=== PATIENT | female | born 1945 | race Caucasian/White ===

== ENCOUNTER 2020-07-23 15:02 | Outpatient (REF) | payer MEDICARE, SELFPAY ==
--- NOTE | 2020-07-23 15:06 | CT_ITS ---
EXAMINATION: CT CHEST SCREENING CLINICAL INFORMATION: Smoking history COMPARISON: Previous chest CT scans most recent July 2018 TECHNIQUE: Multidetector volumetric CT imaging of the chest is performed without contrast using low dose technique. Additional 2D coronal and sagittal reformatted images and axial 3D maximum intensity projection (MIP) images are generated on the CT workstation. This CT examination was performed using dose optimization techniques as appropriate, variously including the following: *Automated exposure control *Adjustment of mA and/or kV according to patient size (this includes techniques or standardized protocols for targeted exams where dose is matched to indication/reason for exam; i.e. extremities or head) *Use of iterative reconstruction technique DLP: 58 mGy-cm FINDINGS: LUNGS: There is mild emphysema. There are small bilateral pulmonary nodules that are stable. Largest pulmonary nodule measures 3 mm in the right upper lobe axial image 88 series 5 and left upper lobe axial image 39 series 5. No new pulmonary nodules are seen. There is no endobronchial or endotracheal lesion. MEDIASTINUM: The mediastinum is normal. PLEURA: There is no pleural effusion. No pleural mass or thickening. AXILLA: No lymphadenopathy. UPPER ABDOMEN: Unremarkable OSSEOUS STRUCTURES: There is increased thoracic kyphosis and degenerative changes of the lower thoracic and upper lumbar spine. CT/CT lung screening IMPRESSION: Mild emphysema. Stable small pulmonary nodules. ASSESSMENT: Lung-RADS category 2: Benign RECOMMENDATION: Annual low-dose chest CT follow-up recommended.
== END 2020-07-23 15:03 | disposition home or self-care (01) ==
LOC: HO.CT 15:02
PROVIDERS: Visit Provider Surgery
DX: Z12.2 Encounter for screening for malignant neoplasm of respiratory organs (principal); F17.210 Nicotine dependence, cigarettes, uncomplicated
CPT/HCPCS: 71250

== ENCOUNTER → 2020-07-24 14:37 | Outpatient (BNVA) | payer MEDICARE, SELFPAY | PROVIDERS: PCP Family Medicine; Referring Provider Family Medicine; Visit Provider Nurse Practitioner | DX: K21.9 Gastro-esophageal reflux disease without esophagitis (principal); K59.04 Chronic idiopathic constipation; R13.10 Dysphagia, unspecified; Z79.899 Other long term (current) drug therapy | CPT/HCPCS: Q3014 ==

== ENCOUNTER → 2020-08-12 14:08 | Outpatient (REF) | payer MEDICARE, SELFPAY ==
--- NOTE | 2020-08-12 14:00 | CA_ITS ---
Transthoracic Echocardiogram Patient (Last, First, Middle): Ariella Dorsey, Gender: Female Date of : 1945 Age: 74 Procedure Date: 08/12/2020 Procedure Type: Transthoracic Echocardiogram Location: OP Height: 137.16 cm Weight: 74.84 kg BSA: 1.59 m2 Heart Rate: bpm BP: 122 / 60 mmHg Radiocommunications Technician: Referring MD: Edilma Norwood DO Symptoms: R42 DIZZINESS AND GIDDINESS Study Quality: Fair ECG Rhythm: Sinus Conclusions: - The left ventricular systolic function is normal. The visually estimated ejection fraction is between 60-65%. - No obvious valvular pathology seen on this study. Findings Left Ventricle Normal left ventricular cavity size. There is normal left ventricular wall thickness. The left ventricular systolic function is normal. The visually estimated ejection fraction is between 60-65%. There is no evidence of regional wall motion abnormalities. E/E prime ratio is between 8 and 15 consistent with indeterminate filling pressures. Evidence suggests grade I (mild) diastolic dysfunction. Right Ventricle Normal right ventricular cavity size and systolic function. Atria The left atrium is normal in size. The right atrium is normal in size. Aortic Valve There is a normal trileaflet aortic valve. There is no aortic valve stenosis. There is no aortic valve regurgitation. Mitral Valve The mitral valve appears normal. There is trace mitral valve regurgitation. There is no mitral valve stenosis. Pulmonic Valve The pulmonic valve was not well visualized. Tricuspid Valve Normal tricuspid valve structure. There is trace tricuspid valve regurgitation. The pulmonary artery systolic pressure is normal. Great Vessels The aortic annulus, sinuses of valsalva, and asc aorta are normal in size. Venous The inferior vena cava is normal in size and collapses greater than 50% with inspiration. Pericardium/Pleural Prominent epicardial adipose tissue noted. There is no evidence of pericardial effusion. Prior Study Comparison No significant change compared to prior study dated: 10/18/2017. Recommendations, Care & Conclusions No obvious valvular pathology seen on this study. Measurements 2D Linear Measurements IVSd: 0.94 0.6-0.9/0.6-1.0 cm LVIDd: 3.74 3.9-5.3/4.2-5.9 cm LVIDd Index: 2.35 2.4-3.2/2.2-3.1 cm/m2 LVIDs: 2.45 2.0-3.6 cm LVPWd: 0.92 0.7-1.1 cm Ao Root: 2.90 2.1-3.5 cm LA Diam: 3.10 2.7-3.8/3.0-4.0 cm LAIDs Index: 1.95 1.5-2.3 cm/m2 LV Mass: 127.26 67-162/88-224 g LV Mass Index: 80.04 43-95/49-115 g/m2 LVOT Diam: 2.00 3.0+(-)1.3 cm 2D Systolic Function EF 4C: 55.90 >55% EF 2C: 59.70 >55% EF BiP: 60.20 >55% Mitral Valve MV Pk E: 0.69 MV PK A: 0.96 MV Decel Time: 130.00 E/A: 0.70 E'Lateral: 7.25 E'Medial: 6.19 E/E' Med: 11.10 E/E' Lat: 9.50 PHT: 38.00 MVA PHT: 5.79 Decel [place]: 5.29 Aortic Valve AoV Pk Zachary: 1.20 AoV Mn Zachary: 0.74 AoV VTI: 0.22 AoV Pk Grad: 6.00 Aov Mn Grad: 3.00 MARISABEL Cont.VTI: 2.11 LVOT LVOT Pk Zachary: 0.83 LVOT Mn Zachary: 0.54 LVOT VTI: 0.15 LVOT Pk Grad: 3.00 LVOT Mn Grad: 1.00 LVOT Diam: 2.00 LVOT Area: 3.14 Diastolic Function MV Pk E: 0.69 MV Pk A: 0.96 E/A: 0.70 E'Medial: 6.19 E/E' Med: 11.10 E' Laterial: 7.25 E/E' Lat: 9.50 Tricuspid Valve TR Pk Zachary: 1.35 TR Pk Grad: 7.00 RA Press: 3.00 RVSP: 10.00 Great Vessels Aorta Ao Root-2D: 2.90 2.0-3.7 cm Ao Asc: 3.60 2.1-3.4 cm Pulmonary Valve PV Pk Zachary: 0.96 Peak PV Grad: 4.00 Updated in Other Vendor System with Status of Final Alen Ospina MD electronically signed on 08/13/2020 10:54:16 AM with status of Final
== END ==
LOC: HO.CARD 14:08
PROVIDERS: Visit Provider Family Medicine
DX: R42 Dizziness and giddiness (principal)
CPT/HCPCS: 93306

== ENCOUNTER → 2020-10-24 13:39 | Outpatient (BNVA) | payer MEDICARE, SELFPAY | PROVIDERS: PCP Family Medicine; Visit Provider Nurse Practitioner | DX: Z76.89 Persons encountering health services in other specified circumstances (principal) | CPT/HCPCS: Q3014 ==

== ENCOUNTER 2021-01-02 12:31 | Outpatient (REF) | payer MEDICARE, SELFPAY ==
--- NOTE | ~2021-01-02 | MR_ITS ---
MR LUMBAR SPINE WITHOUT CONTRAST CLINICAL INFORMATION: Worsening low back pain radiating to the legs. COMPARISON: Lumbar spine MRI 11/07/2015 TECHNIQUE: MRI of the lumbar spine was obtained using routine sequences without contrast. FINDINGS: There are 5 nonrib-bearing lumbar-type vertebral bodies. There is grade 1 retrolisthesis of L1 on L2 and L2 on L3 that is unchanged. Similar severe disc volume loss at these 2 levels and mild disc volume loss at L5-S1. There is marrow edema within the left L5 and S1 facets that is most likely degenerative or inflammatory. There is no additional bone marrow edema. There are no acute fractures. Modic type II endplate signal changes at L1-L2 and L2-L3. Multilevel endplate osteophytes. Bilateral perinephric stranding. Conus terminates at the L1 level. T12-L1: Small superiorly migrating left paracentral disc extrusion and prominent dorsal epidural fat result in similar mild to moderate central canal stenosis. Mild bilateral foraminal encroachment. L1-L2: Grade 1 retrolisthesis. Diffuse disc osteophyte with a superimposed shallow right paracentral disc protrusion resulting in similar mass effect on the traversing right L2 nerve root within the right subarticular zone and mild narrowing of the central canal. Stable mild to moderate bilateral foraminal stenosis. L2-L3: Stable grade 1 retrolisthesis. Diffuse disc osteophyte and bilateral facet arthropathy. No central canal stenosis. Moderate bilateral foraminal stenosis with mild mass effect on the exiting L2 nerve roots bilaterally unchanged. L3-L4: Diffuse annular disc bulge with a new superimposed left lateral disc protrusion resulting in worsening now severe left foraminal stenosis with compression of the exiting left L3 nerve root. No central canal stenosis. Mild right foraminal encroachment. L4-L5: Diffuse annular disc bulge and severe bilateral facet arthropathy and ligamentum flavum thickening. Bilateral facet joint effusions. Mild narrowing of the central canal. Mild bilateral foraminal encroachment. Findings are unchanged. L5-S1: Diffuse annular disc bulge and severe bilateral facet arthropathy and ligamentum flavum thickening. Epidural lipomatosis continues to significantly narrow the thecal sac. Increase in size of a right lateral disc protrusion that along with progressive facet arthropathy results in worsening severe right foraminal stenosis compression of the exiting right L5 nerve root. MR/MR lumbar spine wo con IMPRESSION: - At L5-S1, there is been an increase in size of a right lateral disc protrusion that along with progressive advanced facet arthropathy results in worsening severe right foraminal stenosis with compression of the exiting right L5 nerve root. There is bone marrow edema within the left L5-S1 facet joint that is most likely degenerative or inflammatory - At L3-L4, there is a new left lateral disc protrusion that results in severe left foraminal stenosis with compression of the exiting left L3 nerve root. - At T12-L1, the previously seen disc herniation is decreased in size resulting in persistent mild to moderate central canal stenosis. Additional stable spondylitic changes throughout the lumbar spine as described. Stable grade 1 retrolisthesis and severe disc volume loss at L1-L2 and L2-L3.
== END 2021-01-02 12:32 | disposition home or self-care (01) ==
LOC: HO.MRI 12:31
PROVIDERS: Visit Provider Family Medicine
DX: M54.5 Low back pain (principal)
CPT/HCPCS: 72148

== ENCOUNTER 2021-04-30 12:55 | Outpatient (REF) | payer MEDICARE, SELFPAY ==
--- NOTE | ~2021-04-30 | MM_ITS ---
EXAMINATION: MM DIAGNOSTIC DIGITAL BREAST TOMOSYNTHESIS, BILATERAL CLINICAL INFORMATION: Due for yearly. Also, follow-up probable benign nodular asymmetric density upper outer left breast. The lifetime risk of breast cancer based on the Tyrer-Cuzick Model is 4%. COMPARISON: Mammography: 04/30/2020, 07/26/2019, 12/26/2018, 12/13/2018 (BI-RADS 0), 11/29/2017 TECHNIQUE: Digital breast tomosynthesis is performed in both the craniocaudal and mediolateral oblique views along with computer-aided detection (CAD). Synthesized 2D images are generated from the tomosynthesis. FINDINGS: There are scattered areas of fibroglandular density (ACR BI-RADS breast composition Category b). Parenchymal pattern is similar to prior studies. There is no developing density. There is no interval mass or architectural abnormality. The small nodule upper outer quadrant left breast is stable from prior studies, and in retrospect, also similar to 2018. This concludes surveillance and finding is considered to be benign. Chronic bilateral nipple retraction is again noted. There are scattered bilateral vascular and some ductal secretory calcifications. The axilla are unremarkable. Results are provided to the patient at time of visit by the technologist. MM/MM tomosynthesis diagnostic BI IMPRESSION: No significant changes from prior studies. Nodule under surveillance upper outer left breast is now considered to be benign. ASSESSMENT: BI-RADS 2: Benign RECOMMENDATION: Routine annual mammography screening. This patient's information was entered into a reminder system with a target due date for their next mammogram.
== END 2021-04-30 12:56 | disposition home or self-care (01) ==
LOC: HO.MAMMO 12:55
PROVIDERS: PCP Family Medicine; Visit Provider Family Medicine
DX: N63.21 Unspecified lump in the left breast, upper outer quadrant (principal)
CPT/HCPCS: 77062; 77066

== ENCOUNTER 2022-05-15 09:51 | Outpatient (REF) | payer MEDICARE, SELFPAY ==
--- NOTE | ~2022-05-15 | MM_ITS ---
EXAMINATION: MM SCREENING DIGITAL BREAST TOMOSYNTHESIS, BILATERAL CLINICAL INFORMATION: Screening. Asymptomatic. The lifetime risk of breast cancer based on the Tyrer-Cuzick Model is 3%. COMPARISON: Mammography: 04/30/2021, 04/30/2020, 07/26/2019, 11/29/2017 TECHNIQUE: Digital breast tomosynthesis is performed in both the craniocaudal and mediolateral oblique views along with computer-aided detection (CAD). Synthesized 2D images are generated from the tomosynthesis. Additional left MLO view is provided. FINDINGS: There are scattered areas of fibroglandular density (ACR BI-RADS breast composition Category b). There are no significant masses, abnormal calcifications, or other abnormalities. Parenchymal pattern is similar to prior studies. There is no developing density or architectural abnormality. The axilla are unremarkable. There is chronic mild bilateral nipple retraction similar to prior studies. MM/MM tomosynthesis screening BI IMPRESSION: No significant changes from prior exams. ASSESSMENT: BI-RADS 2: Benign RECOMMENDATION: Routine annual mammography screening. This patient's information was entered into a reminder system with a target due date for their next mammogram.
== END 2022-05-15 09:52 | disposition home or self-care (01) ==
LOC: HO.MAMMO 09:51
PROVIDERS: PCP Family Medicine; Visit Provider Family Medicine
DX: Z12.31 Encounter for screening mammogram for malignant neoplasm of breast (principal)
CPT/HCPCS: 77063; 77067

== ENCOUNTER 2022-12-22 09:52 | Outpatient (REF) | payer MEDICARE, SELFPAY ==
--- NOTE | ~2022-12-22 | MR_ITS ---
EXAMINATION: MR BRAIN WITHOUT CONTRAST CLINICAL INFORMATION: 77-year-old with worsening memory loss. COMPARISON: None available. TECHNIQUE: Multiplanar multisequence MR imaging of the brain was done without IV contrast. FINDINGS: BRAIN VOLUME: Within normal limits within the limitations of qualitative assessment. STRUCTURAL: Partially empty sella, normal variant. BRAIN AND MENINGES: There is faint, confluent FLAIR signal hyperintensity in the peritrigonal and deep parietal white matter bilaterally and a tiny focus of white matter T2 hyperintensity in the left centrum semiovale which are nonspecific findings but could reflect minimal chronic ischemic microangiopathy in a patient of this age. DWI sequence demonstrates no restricted diffusion to suggest acute or subacute cerebral ischemia. Gradient refocused imaging demonstrates no abnormal susceptibility-weighted signal loss to suggest hemorrhage, hemosiderin staining or abnormal mineralization. No extra-axial fluid collections, space-occupying process or mass effect are identified. Tucker-white matter interface is preserved. VENTRICLES AND SUBARACHNOID SPACES: The ventricular system and subarachnoid spaces are within normal range; there is no hydrocephalus. ORBITAL STRUCTURES: Bilateral lens extractions are noted. Otherwise, the visualized orbital structures are grossly unremarkable within the limitations of the study. VASCULAR: Signal voids are noted in the visualized major intracranial vessels. OSSEOUS STRUCTURES, SINUSES/MASTOIDS, EXTRACRANIAL SOFT TISSUES: Osseous marrow signal intensity appears within normal limits throughout the calvarium and skull base. There is nasal septal deviation to the left and minor mucosal thickening in the ethmoid complex. The visualized extracranial soft tissue structures appear grossly unremarkable. There are some retained secretions in the mastoids bilaterally and in the left petrous apex with the latter likely reflecting proteinaceous secretions, being T1 hyperintense. MR/MR head/brain wo con IMPRESSION: 1. No acute intracranial process. No evidence for infarction, hemorrhage, extra-axial fluid collection, space-occupying process, mass effect or hydrocephalus. 2. 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 3. No definite disproportionate global or regional brain parenchymal volume loss within the limitations of a qualitative assessment. 4. Some retained secretions are suspected in the mastoids bilaterally and probable minimal proteinaceous secretions in the left petrous apex.
--- NOTE | ~2022-12-22 | MR_ITS ---
MR CERVICAL SPINE WITHOUT CONTRAST CLINICAL INFORMATION: Worsening chronic neck pain. COMPARISON: Cervical spine MRI 06/15/2013. TECHNIQUE: MRI of the cervical spine was obtained using routine sequences without contrast. FINDINGS: Slight anterior subluxation of C4 on C5 and C5 on C6. Vertebral body heights are maintained. Mild disc volume loss at C3-C4 and C4-C5. Craniocervical junction is unremarkable. Bone marrow edema within the left C3 and C4 facets that is most likely degenerative/inflammatory. Modic type I endplate signal changes at C3-C4. Cervical arterial flow voids are maintained. 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 C2-C3: Uncovertebral joint spurring and facet arthropathy result in mild bilateral foraminal encroachment. No central canal stenosis. Findings unchanged. C3-C4: Disc osteophyte and ligamentum flavum thickening result in worsening moderate to severe central canal stenosis and flattening of the cord. Advanced uncovertebral joint hypertrophy and hypertrophic facet arthropathy result in worsening severe bilateral foraminal stenosis. C4-C5: Disc osteophyte and ligamentum flavum thickening result in slightly improved now moderate central canal stenosis. Advanced uncovertebral joint hypertrophy and hypertrophic facet arthropathy result in severe bilateral foraminal stenosis. C5-C6: Mild anterior subluxation. Disc osteophyte and ligamentum flavum thickening mildly narrow the central canal. Uncovertebral joint spurring and facet arthropathy result in moderate bilateral foraminal stenosis which is progressed. C6-C7: Mild anterior subluxation. Uncovertebral joint spurring and advanced facet arthropathy result in similar mild left-sided foraminal encroachment. C7-T1: Disc contour is normal. No central canal stenosis and no foraminal stenosis. MR/MR cervical spine wo con IMPRESSION: - At C3-C4, progressive advanced multifactorial degenerative changes result in worsening moderate to severe central canal stenosis, flattening of the cervical cord, and severe bilateral foraminal stenosis. Modic type I endplate signal changes at this level. Bone marrow edema within the left C3-C4 facets is most likely degenerative/inflammatory. - At C4-C5, spondylitic changes result in slightly improved moderate central canal stenosis. Similar severe bilateral foraminal stenosis at this level. - At C5-C6, progressive spondylitic changes result in worsening moderate bilateral foraminal stenosis. 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
== END 2022-12-22 09:53 | disposition home or self-care (01) ==
LOC: HO.MRI 09:52
PROVIDERS: PCP Family Medicine; Visit Provider Family Medicine
DX: R68.89 Other general symptoms and signs (principal); M54.2 Cervicalgia; G89.29 Other chronic pain
CPT/HCPCS: 70551; 72141

== ENCOUNTER 2023-03-11 09:45 | Outpatient (REF) | payer MEDICARE, SELFPAY | END 2023-03-11 09:46 | disposition home or self-care (01) | LOC: HO.NEURO 09:45 | PROVIDERS: PCP Family Medicine; Visit Provider Family Medicine | DX: M79.604 Pain in right leg (principal); M79.605 Pain in left leg | CPT/HCPCS: 95886; 95909 ==

== ENCOUNTER 2023-11-30 09:51 | Outpatient (REF) | payer MEDICARE, SELFPAY ==
[2023-11-30 12:07] LABS: MANUAL DIFF FLAG NO
[2023-11-30 12:13] LABS: Basophils Absolute Auto 0.1 X10*3/uL (0.0-0.2); Basophils Percent Auto 0.6 % (0-2); Eosinophils Absolute Auto 0.1 X10*3/uL (0.0-0.4); Eosinophils Percent Auto 1.3 % (0-4); Hematocrit 34.6 % (37.0-47.0); Hemoglobin 10.6 g/dl (12.0-16.0); Imm Gran Abs Auto 0.03 X10*3/uL (0.00-0.03); Imm Gran Pct Auto 0.3 % (0.0-0.4); Lymphocytes Percent Auto 31.7 % (20-40); Mean Corpuscular HGB Conc 30.6 g/dl (31.0-35.0); Mean Corpuscular Hemoglobin 25.4 pg (27.0-33.0); Monocytes Absolute Auto 0.6 X10*3/uL (0.1-1.2); Monocytes Percent Auto 5.8 % (2-11); Neutrophils Absolute Auto 5.7 x10*3/uL (2.0-8.3); Neutrophils Percent Auto 60.3 % (45-73); Platelet Count 365 X10*3/uL (160-400); Red Blood Count 4.17 X10*6/uL (4.20-5.50); Red Cell Distribution Width 16.1 % (11.0-16.0); White Blood Count 9.5 X10*3/uL (4.8-10.8)
[2023-11-30 13:05] LABS: Alanine Aminotransferase 18 U/L (0-31); Albumin Level 4.2 g/dL (3.5-5.0); Alkaline Phosphatase 126 U/L (39-117); Anion Gap 14 (12-20); Aspartate Amino Transferase 23 U/L (5-31); Bilirubin Total 0.2 mg/dL (0.0-1.0); Blood Urea Nitrogen 13 mg/dL (9-16); Calcium 9.8 mg/dL (8.4-10.2); Carbon Dioxide 27 mmol/L (22-29); Chloride 107 mmol/L (96-108); Estimated Glomerular Filt Rate > 60; Glucose Random 166 mg/dL (60-115); Potassium 4.6 mmol/L (3.3-5.1); Sodium 143 mmol/L (135-145); Total Protein 7.4 g/dL (6.5-8.0)
== END 2023-11-30 09:52 | disposition home or self-care (01) ==
LOC: HO.HHCL 09:51
PROVIDERS: Visit Provider Nurse Practitioner Family
DX: Z00.00 Encounter for general adult medical examination without abnormal findings (principal)
CPT/HCPCS: 36415; 80053; 85025

== ENCOUNTER 2023-12-08 10:17 | Outpatient (REF) | payer OTHER, SELFPAY | END 2023-12-08 10:18 | disposition home or self-care (01) | LOC: HO.MAMMO 10:17 | PROVIDERS: PCP Family Medicine; Visit Provider Family Medicine | DX: Z12.31 Encounter for screening mammogram for malignant neoplasm of breast (principal) | CPT/HCPCS: 77063; 77067 ==

== ENCOUNTER → 2023-12-08 11:00 | Outpatient (BNV) | payer OTHER, SELFPAY | PROVIDERS: PCP Family Medicine; Visit Provider Radiology Diagnostic Radiology | DX: Z12.31 Encounter for screening mammogram for malignant neoplasm of breast (principal) | CPT/HCPCS: 77063; 77067 ==

== ENCOUNTER 2024-04-11 10:51 | Outpatient (REF) | payer OTHER, SELFPAY ==
--- NOTE | ~2024-04-11 | XR_ITS ---
EXAMINATION: XR RIBS, BILATERAL CLINICAL INFORMATION: Left-sided left pain COMPARISON: CT chest July 2020 TECHNIQUE: 3 views of left and right ribs and frontal view of the chest FINDINGS: Lungs are clear. No consolidation, pneumothorax, or pleural effusion. The cardiomediastinal silhouette and pulmonary vasculature are normal. Osseous structures are unremarkable. Ribs are intact. No fractures are identified. XR/XR ribs BI min 4V w CXR1V IMPRESSION: Unremarkable examination. No fracture Electronically signed by: Abdoul Rivera MD 05/05/2024 06:48 AM EDT
== END 2024-04-11 10:52 | disposition home or self-care (01) ==
LOC: HO.HHCX 10:51
PROVIDERS: Visit Provider Family Medicine
DX: R07.81 Pleurodynia (principal)
CPT/HCPCS: 71111

== ENCOUNTER 2024-04-27 09:30 | Outpatient (REF) | payer OTHER, SELFPAY ==
[2024-04-27 12:18] LABS: Estimated Average Glucose 189 mg/dL; Hemoglobin A1c % 8.2 % (<6.0)
[2024-04-27 12:19] LABS: Hematocrit 34.3 % (37.0-47.0); Hemoglobin 10.3 g/dl (12.0-16.0); Mean Corpuscular Hemoglobin 24.1 pg (27.0-33.0); Mean Corpuscular Volume 80.3 fL (80.0-98.0); Mean Platelet Volume 9.4 fL (9.4-12.3); Platelet Count 413 X10*3/uL (160-400); Red Blood Count 4.27 X10*6/uL (4.20-5.50); Red Cell Distribution Width 17.4 % (11.0-16.0)
[2024-04-27 12:33] LABS: Alanine Aminotransferase 12 U/L (0-31); Albumin Level 3.9 g/dL (3.5-5.0); Alkaline Phosphatase 119 U/L (39-117); Anion Gap 15 (12-20); Aspartate Amino Transferase 13 U/L (5-31); Bilirubin Direct < 0.2 mg/dL (0.0-0.5); Bilirubin Total 0.2 mg/dL (0.0-1.0); Blood Urea Nitrogen 10 mg/dL (9-16); Calcium 9.7 mg/dL (8.4-10.2); Carbon Dioxide 24 mmol/L (22-29); Chloride 108 mmol/L (96-108); Cholesterol 159 mg/dL (<200); Estimated Glomerular Filt Rate > 60; Glucose Random 150 mg/dL (60-115); HDL Cholesterol 49 mg/dL (>40); LDL Cholesterol Calculated 72 mg/dL (<100); Potassium 4.8 mmol/L (3.3-5.1); Sodium 142 mmol/L (135-145); Total Protein 6.8 g/dL (6.5-8.0); Triglycerides 190 mg/dL (<150)
[2024-04-27 12:49] LABS: HBsAGNum1 0.22 S/CO (0.00-0.99); HIV AB/AG Nonreactive (Nonreactive); HIV Num 1 0.06 S/CO (0.00-0.99); Hepatitis B Surface Antigen Negative (Negative); ~HepC Num1 7.76 S/CO (0.00-0.79); ~Hepatitis C Antibody Reactive (Nonreactive)
[2024-04-27 12:50] LABS: Free T4 (Free Thyroxine) 0.81 ng/dL (0.71-1.85); Thyroid Stimulating Hormone 1.05 uIU/mL (0.32-4.0); Vitamin D 25-OH Total 50.1 ng/mL (>30)
[2024-04-27 14:20] LABS: Creatinine Urine 28.57 mg/dL; Microalbum/Creatinine Ratio Ur 24.5 ug/mg cr (<30)
[2024-04-27 14:39] LABS: HBS Num2 9.08 mIU/mL (0-7.99); HBS Num3 9.53 mIU/mL (0-7.99); ~Hepatitis B Surface Antibody GRAYZONE (Nonreactive)
[2024-04-27 16:29] LABS: CT PCR NOT DETECTED (Not Detect.); NG PCR NOT DETECTED (Not Detect.)
[2024-05-01 13:18] LABS: HCV Log PCR <1.18 NOT DETECTED Log IU/mL (NOT DETECTED); HepC Viral Load <15 NOT DETECTED IU/mL (NOT DETECTED)
== END 2024-04-27 09:31 | disposition home or self-care (01) ==
LOC: HO.HHCL 09:30
PROVIDERS: Visit Provider Family Medicine
DX: Z00.00 Encounter for general adult medical examination without abnormal findings (principal); R07.81 Pleurodynia; R32 Unspecified urinary incontinence; R14.0 Abdominal distension (gaseous); M54.2 Cervicalgia; G89.29 Other chronic pain; M54.50 Low back pain, unspecified; R13.10 Dysphagia, unspecified; K59.09 Other constipation; F17.200 Nicotine dependence, unspecified, uncomplicated; J45.30 Mild persistent asthma, uncomplicated; F33.9 Major depressive disorder, recurrent, unspecified; E78.49 Other hyperlipidemia; I10 Essential (primary) hypertension; Z79.4 Long term (current) use of insulin; E11.42 Type 2 diabetes mellitus with diabetic polyneuropathy
CPT/HCPCS: 36415; 80048; 80061; 80076; 82043; 82306; 82570; 83036; 84439; 84443; 85027; 86706; 86803; 87340; 87389; 87491; 87522; 87591

== ENCOUNTER 2024-08-23 17:23 | Emergency (ER) | payer OTHER, SELFPAY ==
[2024-08-23] VITALS (9 sets, daily range): BP systolic 91–156; BP diastolic 40–67; PULSE 67–82; RESP 16–18; TEMP 36.3–36.6; O2SAT 92–100; BMI 35.5
--- NOTE | ~2024-08-23 | XR_ITS ---
EXAMINATION: XR CHEST CLINICAL INFORMATION: sob COMPARISON: None available. TECHNIQUE: Frontal view of the chest was obtained. Study limited by lordotic positioning. FINDINGS: No significant abnormality is noted involving the heart, lungs, mediastinum, bony thorax or soft tissues. XR/XR chest 1V IMPRESSION: Unremarkable examination. Electronically signed by: Sid Gan MD 08/23/2024 06:01 PM [facility] [place]
--- NOTE | ~2024-08-23 | CT_ITS ---
EXAMINATION: CT ABDOMEN AND PELVIS WITH CONTRAST CLINICAL INFORMATION: Nausea/vomiting COMPARISON: None TECHNIQUE: Multiple axial images were obtained from the superior aspect of the liver through the pubic symphysis after the administration of 85 mL of intravenous Omnipaque. Images were evaluated on independent dedicated 3-D workstation and 3-D images were reconstructed with concurrent radiologist supervision and subsequently interpreted. Oral contrast was not administered. This CT examination was performed using dose optimization techniques as appropriate, variously including the following: *Automated exposure control *Adjustment of mA and/or kV according to patient size (this includes techniques or standardized protocols for targeted exams where dose is matched to indication/reason for exam; i.e. extremities or head) *Use of iterative reconstruction technique DLP: 490 mGy-cm FINDINGS: LUNG BASES: The visualized lung bases are clear. CARDIOMEDIASTINUM: The visualized heart is normal in size without pericardial effusion. No coronary artery calcification. LIVER: Homogeneous in attenuation. Normal in size. GALLBLADDER: Noninflamed. BILIARY SYSTEM: No intrahepatic or extrahepatic biliary dilation. PANCREAS: Homogeneous in attenuation. SPLEEN: Normal in size. GENITOURINARY: Bilateral kidneys demonstrate symmetric enhancement. No perinephric fluid collection. No renal calculi. Urinary bladder is severely distended with bilateral mild hydronephrosis. ADRENAL GLANDS: Unremarkable. REPRODUCTIVE: Uterus and and bilateral adnexa are unremarkable. GASTROINTESTINAL: The visualized alimentary tract is normal in course. No evidence of obstruction. APPENDIX: The appendix is seen in its entirety and is unremarkable. PERITONEUM: No pneumoperitoneum. No intra-abdominal fluid collection. VASCULATURE: The abdominal aorta is normal in course and caliber. LYMPH NODES: No pathologically enlarged abdominal or pelvic lymph nodes. SOFT TISSUES/MUSCULOSKELETAL: Subacute left seventh and eighth rib fractures. Multilevel degenerative changes, worst at L2-3. CT/CT abdomen pelvis w IV con IMPRESSION: 1. Severely distended urinary bladder with mild bilateral hydronephrosis. No urolithiasis 2. Subacute left seventh and eighth rib fractures. Fleischner guidelines were followed. Electronically signed by: Kevin Winters DO 08/23/2024 09:31 PM EST
--- NOTE | 2024-08-23 17:41 | ECG_ITS ---
Test Reason : SOB Blood Pressure : / mmHG Vent. Rate : 078 BPM Atrial Rate : 000 BPM P-R Int : 000 ms QRS Dur : 082 ms QT Int : 396 ms P-R-T Axes : 000 003 036 degrees QTc Int : 451 ms Artifact in tracing Normal sinus rhythm Premature atrial complexes Abnormal ECG When compared with ECG of 11-JAN-2012 10:24, No significant changes seen Referred By: Olivia Golden Electronically Signed By:DAVIDSON IRVING
--- NOTE | 2024-08-23 17:44 | ED_ITS ---
HPI - Nausea/Vomiting/Diarrhea General Chief complaint: General Medical Stated complaint: HIGH BLOOD SUGAR History of Present Illness HPI Narrative: patient is a 78-year-old female with a history of reflux history of smoking for over 50 years. History of diabetes. Noncompliant with her diet. Patient has been eating ice cream, drinking coffee with real sugar. Noted to have an elevated sugar of greater than 400 today. Also having nausea vomiting. Patient always has a cough. Feels it is about the same as prior. Is vaccinated for COVID. Has no abdominal pain. No fever no chills. No pain on urination. Been compliant in taking her insulin. She is from home. No chest pain. Related Data Home Medications ?Medication ?Instructions ?Recorded ?Confirmed acetaminophen 650 mg 0 mg PO 10/24/20 tablet,extended release aspirin 81 mg tablet,delayed 81 mg PO DAILY 10/24/20 release atorvastatin 40 mg tablet 40 mg PO BEDTIME 10/24/20 baclofen 10 mg tablet 10 mg PO BID 10/24/20 calcium 600 mg (as 1 tab PO BID 10/24/20 carbonate)-vitamin D3 10 mcg (400 unit) tablet cyanocobalamin (vitamin B-12) 1,000 mcg PO QAM 10/24/20 1,000 mcg tablet fluticasone propionate 220 1 puff inhalation BID 10/24/20 mcg/actuation HFA aerosol inhaler gabapentin 300 mg capsule 600 mg PO 10/24/20 glipizide 10 mg tablet 0 mg PO 10/24/20 glucose 4 gram chewable tablet 800f16 g PO hypoglycemia 10/24/20 insulin glargine 100 unit/mL (3 34 unit subcut DAILY 10/24/20 mL) subcutaneous pen lisinopril 10 mg tablet 10 mg PO QAM 10/24/20 metformin 500 mg tablet 0 mg PO 10/24/20 omega-3 fatty acids-fish oil 340 1 cap PO BID 10/24/20 mg-1,000 mg capsule sertraline 25 mg tablet 25 mg PO QAM 10/24/20 simethicone 125 mg chewable tablet 125 mg PO QID PRN gas 10/24/20 simvastatin 40 mg tablet 40 mg PO BEDTIME 10/24/20 tramadol 50 mg tablet 50 mg PO Q6H PRN 10/24/20 trazodone 50 mg tablet 50 mg PO BEDTIME 10/24/20 Previous Rx's ?Medication ?Instructions ?Recorded docusate sodium 100 mg capsule 100 mg PO DAILY #30 caps 07/24/20 (Colace) linaclotide 290 mcg capsule 290 mcg PO QAM #30 caps 10/24/20 (Linzess) omeprazole 40 mg capsule,delayed 40 mg PO BID 30 days #60 caps 10/24/20 release sennosides 8.6 mg capsule (senna) 17.2 mg (2 x 8.6 mg) PO BEDTIME 10/24/20 constipation 30 days #60 caps Allergies Allergy/AdvReac Type Severity Reaction Status Date / Time No Known Allergies Allergy Verified 08/23/24 18:02 Review of Systems 2 Review of Systems: Positive nausea vomiting positive elevated sugar at home [facility] Past Medical History Attestation statement: The following information was validated with the patient. Surgical History Hx of colonoscopy Family History Family History Father Diabetes Myocardial infarction Mother Diabetes Brother Diabetes Sister Diabetes Heart problem Daughter Breast cancer Heart problem Paternal Uncle Colon cancer Son Liver cancer Social History Social History (Updated 10/24/20 @ 13:45 by PIPE Rao) Unable to assess alcohol history related to: Unknown Alcohol intake: current Alcohol intake frequency: does not drink Cigarettes Per Day: 20 Smoked in Last 30 Days: No Use of substances other than those prescribed or required for medical reasons: Unknown Advance Directives: No Advance Directives Information Provided: No Physical Exam 2 Vital Signs: Vital Signs: Last Vital Signs Temp 97.6 F 08/23/24 20:00 Pulse 72 08/23/24 20:15 Resp 17 08/23/24 20:00 BP 120/47 L 08/23/24 20:15 Pulse Ox 92 08/23/24 20:00 O2 Del Method Room Air 08/23/24 20:00 BMI result Body Mass Index 35.5 Appearance: Alert. Oriented X3. No acute distress. Eyes: Pupils equal, round and reactive to light. ENT: Pharynx normal. Neck: Normal inspection. Neck supple. No lymph nodes noted. No crepitus CVS: Normal heart rate and rhythm. Pulses normal. Normal S1 and S2 Respiratory: No respiratory distress. Breath sounds normal. positive Wheezing. No rales Abdomen: Soft and nontender. No rigidity. No distention. good BS x4 Skin: Skin warm and dry. Normal skin color. Normal skin turgor. Extremities: No lower extremity edema. Neurovascular intact to all extremities. No Lacerations. No Rash Neuro: Oriented X 3. No motor deficit. No sensory deficit. Moving all extermities. No slurred speech Medications Administered Discontinued Medications Generic Name Dose Route Start Last Admin Trade Name Mohini PRN Reason Stop Dose Admin Albuterol Sulfate 2.5 mg/ 0 mg 08/23/24 17:40 08/23/24 17:55 Albuterol/Ipratropium 3 ml INHALE 08/23/24 17:41 5 dose ONCE ONE Administration Sodium Chloride 1,000 mls @ 999 mls/hr 08/23/24 17:45 08/23/24 20:15 Ns IV 08/23/24 18:45 Infused .Q1H1M CHAD Infusion Magnesium Sulfate 2 gm in 50 mls @ 50 mls/hr 08/23/24 18:49 08/23/24 20:05 Magnesium Sulfate/H2o IV 08/23/24 19:48 50 mls/hr ONCE ONE Administration Iohexol 100 ml 08/23/24 19:02 08/23/24 19:03 Iohexol 350 Mg/Ml 100 Ml Infus..Btl IV 08/23/24 19:03 85 ml ONCE ONE Administration Ondansetron HCl 4 mg 08/23/24 17:39 08/23/24 18:13 Ondansetron Hcl 4 Mg/2 Ml Vial IVPUSH 08/23/24 17:40 4 mg ONCE ONE Administration Medical Decision Making Medical Decision Making MDM Narrative: Patient's COVID test came back positive. likely contributed to patient's elevated sugar. Her O2 sat is 92% on room air she has a long history of COPD smoking over 50 years. My interpretation of patient's chest x-ray was grossly negative there is no pneumonia no pneumothorax. Patient's electrolytes came back normal bicarb. Glucose approximately 300. Beta hydroxybutyrate is normal. There is no evidence for diabetic ketoacidosis. Patient's magnesium however came back at 1.3. Repleted with 2 g of magnesium. Will recheck patient's electrolytes. She had nausea vomiting. CT scan of the abdomen pelvis was done to rule out obstruction abscess perforation. ambulated patient in the ED. O2 sat maintained at 93-94% on room air. No hypoxia detected. 20:55. Patient is still pending CT scan of the abdomen repeat electrolytes to check magnesium repletion. Currently in stable condition. Differential Diagnosis Differential Diagnoses: The differential diagnosis associated with the presentation includes Currently in stable condition. COPD, obstruction, hypomagnesemia, electrolyte disturbance, DKA Admission/Observation Consideration of admission/observation: Escalation of care including admission/observation considered Lab Data MDM Lab Attestation statement: I reviewed the patient's lab results. 08/23/24 18:11 08/23/24 18:11 Labs: Lab Results 08/23/24 08/23/24 08/23/24 Range/Units 18:11 18:19 18:33 WBC 8.1 (4.8-10.8) X10*3/uL RBC 4.05 L (4.20-5.50) X10*6/uL Hgb 9.6 L (12.0-16.0) g/dl Hct 31.2 L (37.0-47.0) % MCV 77.0 L (80.0-98.0) fL MCH 23.7 L (27.0-33.0) pg MCHC 30.8 L (31.0-35.0) g/dl RDW 16.9 H (11.0-16.0) % Plt Count 317 (160-400) X10*3/uL MPV 9.0 L (9.4-12.3) fL Immature Gran % (Auto) 0.5 H (0.0-0.4) % Neut % (Auto) 57.0 (45-73) % Lymph % (Auto) 32.9 (20-40) % [place] % (Auto) 8.6 (2-11) % Eos % (Auto) 0.5 (0-4) % Baso % (Auto) 0.5 (0-2) % Lymph # (Auto) 2.7 (1.2-4.9) X10*3/uL [place] # (Auto) 0.7 (0.1-1.2) X10*3/uL Eos # (Auto) 0.0 (0.0-0.4) X10*3/uL Baso # (Auto) 0.0 (0.0-0.2) X10*3/uL Abs Immat Gran (auto) 0.04 H (0.00-0.03) X10*3/uL Absolute Neuts (auto) 4.6 (2.0-8.3) x10*3/uL Absolute Nucleated RBC 0.000 (0.0-0.012) X10*3/uL Nucleated RBC % (auto) 0.0 (0.0-0.2) /100WBC VBG pH 7.39 (7.32-7.43) VBG pCO2 38 mmHg VBG pO2 80 mmHg VBG HCO3 23 (22-26) mmol/L VBG O2 Saturation TNP VBG Base Excess -1.1 mmol/L Sodium 136 (135-145) mmol/L Potassium 4.4 (3.3-5.1) mmol/L Chloride 103 (96-108) mmol/L Carbon Dioxide 21 L (22-29) mmol/L Anion Gap 16 (12-20) BUN 10 (9-16) mg/dL Creatinine 0.91 (0.5-1.4) mg/dL Estim Creat Clear Calc 47.3 Estimated GFR 60 POC Glucose 280 H (60-115) mg/dL Random Glucose 300 H (60-115) mg/dL Calcium 8.9 D (8.4-10.2) mg/dL Phosphorus 3.2 (2.7-4.5) mg/dL Magnesium 1.3 L* (1.6-2.6) mg/dL Total Bilirubin 0.1 (0.0-1.0) mg/dL AST 30 (5-31) U/L ALT 25 (0-31) U/L Alkaline Phosphatase 117 (39-117) U/L Troponin I High Sens 2.8 (<3.5-17.0) ng/L Total Protein 6.8 (6.5-8.0) g/dL Albumin 3.9 (3.5-5.0) g/dL Beta-Hydroxybutyrate 0.12 (0.02-0.27) mmol/L Influenza Type A (PCR) (Negative) Influenza Type B (PCR) (Negative) RSV RNA Qual (PCR) (Negative) SARS-CoV-2 RNA (RT-PCR) (Negative) 08/23/24 Range/Units 18:40 WBC (4.8-10.8) X10*3/uL RBC (4.20-5.50) X10*6/uL Hgb (12.0-16.0) g/dl Hct (37.0-47.0) % MCV (80.0-98.0) fL MCH (27.0-33.0) pg MCHC (31.0-35.0) g/dl RDW (11.0-16.0) % Plt Count (160-400) X10*3/uL MPV (9.4-12.3) fL Immature Gran % (Auto) (0.0-0.4) % Neut % (Auto) (45-73) % Lymph % (Auto) (20-40) % [place] % (Auto) (2-11) % Eos % (Auto) (0-4) % Baso % (Auto) (0-2) % Lymph # (Auto) (1.2-4.9) X10*3/uL [place] # (Auto) (0.1-1.2) X10*3/uL Eos # (Auto) (0.0-0.4) X10*3/uL Baso # (Auto) (0.0-0.2) X10*3/uL Abs Immat Gran (auto) (0.00-0.03) X10*3/uL Absolute Neuts (auto) (2.0-8.3) x10*3/uL Absolute Nucleated RBC (0.0-0.012) X10*3/uL Nucleated RBC % (auto) (0.0-0.2) /100WBC VBG pH (7.32-7.43) VBG pCO2 mmHg VBG pO2 mmHg VBG HCO3 (22-26) mmol/L VBG O2 Saturation VBG Base Excess mmol/L Sodium (135-145) mmol/L Potassium (3.3-5.1) mmol/L Chloride (96-108) mmol/L Carbon Dioxide (22-29) mmol/L Anion Gap (12-20) BUN (9-16) mg/dL Creatinine (0.5-1.4) mg/dL Estim Creat Clear Calc Estimated GFR POC Glucose (60-115) mg/dL Random Glucose (60-115) mg/dL Calcium (8.4-10.2) mg/dL Phosphorus (2.7-4.5) mg/dL Magnesium (1.6-2.6) mg/dL Total Bilirubin (0.0-1.0) mg/dL AST (5-31) U/L ALT (0-31) U/L Alkaline Phosphatase (39-117) U/L Troponin I High Sens (<3.5-17.0) ng/L Total Protein (6.5-8.0) g/dL Albumin (3.5-5.0) g/dL Beta-Hydroxybutyrate (0.02-0.27) mmol/L Influenza Type A (PCR) NEGATIVE (Negative) Influenza Type B (PCR) NEGATIVE (Negative) RSV RNA Qual (PCR) NEGATIVE (Negative) SARS-CoV-2 RNA (RT-PCR) POSITIVE A (Negative) Independent Interpretation I performed an independent interpretation of an: EKG ( my interpretation of patient's EKG showed a multi atrial heart rate is proximally 70. no acute ST segment elevation noted. QRS was normal. QTC was normal.) Discharge Plan Discharge Clinical Impression: COVID, Acute hyperglycemia, Hypomagnesemia Patient Disposition: Still a Patient Instructions: Hypomagnesemia (ED), Diabetic Hyperglycemia (ED), COVID-19 (Coronavirus Disease 2019) (ED) Prescriptions: No Action docusate sodium [Colace] 100 mg capsule 100 mg PO DAILY Qty: 30 6RF Linzess 290 mcg capsule 290 mcg PO QAM Qty: 30 4RF omeprazole 40 mg capsule,delayed release(DR/EC) 40 mg PO BID 30 Days Qty: 60 4RF senna 8.6 mg capsule 17.2 mg PO BEDTIME 30 Days Qty: 60 4RF Referrals: Edilma Norwood DO [Primary Care Provider] - 08/25/24 Print Language: Ivorian
[2024-08-23] MEDS: Albuterol Sulfate 2.5 MG, Albuterol/Iprat 2.5/0.5MG 3 ML 3 ML INHALE (17:55)
[2024-08-23] MEDS: ondansetron HCL 4 MG/2 ML VIAL IVPUSH (18:13)
[2024-08-23] MEDS: 0.9 % Sodium Chloride 1,000 ML 999 ML IV (18:13)
[2024-08-23 18:18] LABS: MANUAL DIFF FLAG NO
[2024-08-23 18:24] LABS: VBG Base Excess -1.1 mmol/L; VBG HCO3 23 mmol/L (22-26); VBG pCO2 38 mmHg; VBG pH 7.39 (7.32-7.43); VBG pO2 80 mmHg
[2024-08-23 18:24] LABS: Basophils Percent Auto 0.5 % (0-2); Eosinophils Percent Auto 0.5 % (0-4); Hematocrit 31.2 % (37.0-47.0); Hemoglobin 9.6 g/dl (12.0-16.0); Imm Gran Abs Auto 0.04 X10*3/uL (0.00-0.03); Imm Gran Pct Auto 0.5 % (0.0-0.4); Lymphocytes Absolute Auto 2.7 X10*3/uL (1.2-4.9); Lymphocytes Percent Auto 32.9 % (20-40); Mean Corpuscular HGB Conc 30.8 g/dl (31.0-35.0); Mean Corpuscular Hemoglobin 23.7 pg (27.0-33.0); Monocytes Absolute Auto 0.7 X10*3/uL (0.1-1.2); Monocytes Percent Auto 8.6 % (2-11); Neutrophils Absolute Auto 4.6 x10*3/uL (2.0-8.3); Platelet Count 317 X10*3/uL (160-400); Red Blood Count 4.05 X10*6/uL (4.20-5.50); Red Cell Distribution Width 16.9 % (11.0-16.0); White Blood Count 8.1 X10*3/uL (4.8-10.8)
[2024-08-23 18:25] LABS: Venous Blood Gas Refer to POC result
[2024-08-23 18:38] LABS: Glucose, Whole Blood 280 mg/dL (60-115)
[2024-08-23 18:45] LABS: Troponin-I High Sensitivity 2.8 ng/L (<3.5-17.0)
[2024-08-23 18:50] LABS: Albumin Level 3.9 g/dL (3.5-5.0); Anion Gap 16 (12-20); Aspartate Amino Transferase 30 U/L (5-31); Bilirubin Total 0.1 mg/dL (0.0-1.0); Blood Urea Nitrogen 10 mg/dL (9-16); Calcium 8.9 mg/dL (8.4-10.2); Carbon Dioxide 21 mmol/L (22-29); Chloride 103 mmol/L (96-108); Creatinine Clr Calc Pharmacy 47.3; Estimated Glomerular Filt Rate 60; Glucose Random 300 mg/dL (60-115); Magnesium 1.3 mg/dL (1.6-2.6); Phosphorus 3.2 mg/dL (2.7-4.5); Potassium 4.4 mmol/L (3.3-5.1); Sodium 136 mmol/L (135-145); Total Protein 6.8 g/dL (6.5-8.0)
[2024-08-23] MEDS: iohexoL 350 MG/ML 100 ML INFUS..BTL IV (19:03)
[2024-08-23 19:17] LABS: Alanine Aminotransferase 25 U/L (0-31); Alkaline Phosphatase 117 U/L (39-117)
[2024-08-23 19:26] LABS: Influenza A PCR NEGATIVE (Negative); Influenza B PCR NEGATIVE (Negative); Resp Syncy Virus RNA Qual PCR NEGATIVE (Negative); SARS COV2 PCR INHOUSE POSITIVE (Negative)
[2024-08-23] MEDS: Magnesium Sulfate/H2O 2 GM/50 ML PIGGYBACK IV (20:05)
--- NOTE | 2024-08-23 20:22 | MHC.EDTECH ---
Assumed care of Pt at 1900.
[2024-08-23 20:28] LABS: Beta-Hydroxybutyrate 0.12 mmol/L (0.02-0.27)
--- NOTE | 2024-08-23 20:57 | MHC.EDTECH ---
Walked Pt to bathroom, o2 sat remained 93-94% on room air. Dr Golden aware
[2024-08-23 21:52] LABS: Anion Gap 12 (12-20); Blood Urea Nitrogen 9 mg/dL (9-16); Carbon Dioxide 22 mmol/L (22-29); Chloride 109 mmol/L (96-108); Creatinine Clr Calc Pharmacy 55.1; Estimated Glomerular Filt Rate > 60; Glucose Random 182 mg/dL (60-115); Magnesium 2.3 mg/dL (1.6-2.6); Sodium 139 mmol/L (135-145)
[2024-08-23] MEDS: Albuterol Sulfate (0.083%) 2.5 MG/3 ML VIAL.NEB 5 MG INHALE (23:26)
[2024-08-23] MEDS: guaiFEN/Codeine SF 200/20/10ML 10 ML LIQUID PO (23:26)
[2024-08-23] MEDS: methylPREDNISolone Sod Succ 125 MG/2 ML VIAL IVPUSH (23:28)
[2024-08-24 00:29] VITALS: BP 102/51; PULSE 78; RESP 20; TEMP 36.4; O2SAT 91
== END 2024-08-24 00:30 | disposition home or self-care (01) ==
PROVIDERS: Emergency Provider Emergency Medicine Emergency Medical Services; PCP Family Medicine
DX: U07.1 COVID-19 (principal); E11.65 Type 2 diabetes mellitus with hyperglycemia; J44.9 Chronic obstructive pulmonary disease, unspecified; R06.02 Shortness of breath; R11.2 Nausea with vomiting, unspecified; R94.31 Abnormal electrocardiogram [ECG] [EKG]; Z79.899 Other long term (current) drug therapy; Z87.891 Personal history of nicotine dependence; Z91.119 Patient's noncompliance with dietary regimen due to unspecified reason
CPT/HCPCS: 0241U; 36415; 71045; 74177; 80048; 80053; 82010; 82803; 82947; 83735; 84100; 84484; 85025; 93005; 94640; 96361; 96365; 96375; 99284; 99285; J2405; J2919; J3475; Q9967

== ENCOUNTER → 2024-08-23 17:41 | Outpatient (BNV) | payer OTHER, SELFPAY | PROVIDERS: Emergency Provider Emergency Medicine Emergency Medical Services; PCP Family Medicine; Visit Provider Internal Medicine | DX: I49.1 Atrial premature depolarization (principal) | CPT/HCPCS: 93010 ==

== ENCOUNTER 2025-08-06 08:09 | Inpatient (IN) | payer OTHER, SELFPAY ==
[2025-08-06] VITALS (9 sets, daily range): BP systolic 102–154; BP diastolic 32–81; PULSE 66–87; RESP 16–22; TEMP 36–36.9; O2SAT 93–98; BMI 29.9
--- NOTE | ~2025-08-06 | XR_ITS ---
EXAMINATION: XR CHEST CLINICAL INFORMATION: cough sopb COMPARISON: Previous chest x-ray August 2024 CT of the abdomen and pelvis August 2024 TECHNIQUE: 2 views of the chest were obtained. FINDINGS: Increased attenuation at the right cardiophrenic angle. When compared with prior CT this may represent prominent epicardial fat. Lungs are otherwise clear. No pleural effusion or pneumothorax. Upper normal size cardiac silhouette. Hilar and mediastinal contours are unremarkable. Mild degenerative changes of the spine and scoliosis. Degenerative changes at the shoulders. XR/XR chest 2V IMPRESSION: Increased attenuation of the right cardiophrenic angle. When compared with prior CT of the abdomen and pelvis this may be related to prominent epicardial fat. Lungs otherwise clear. Upper normal size cardiac silhouette. Electronically signed by: Cookie Hearn MD 08/06/2025 08:59 AM RAD[facility]
--- NOTE | ~2025-08-06 | US_ITS ---
EXAMINATION: US TRIPLEX LOWER EXTREMITY, BILATERAL CLINICAL INFORMATION: Bilateral lower extremity pain. COMPARISON: None available. TECHNIQUE: Color-flow triplex imaging with spectral analysis and compression Doppler were performed on the bilateral lower extremities. FINDINGS: Respiratory variation, normal compression and augmented flow are noted throughout the bilateral lower extremities. The visualized common femoral vein, superficial femoral vein, profunda femoral vein, popliteal vein and midcalf peroneal and posterior tibial venous segments show no evidence of deep venous thrombosis bilaterally. There is no Miranda's cyst. US/US venous duplex LE BI IMPRESSION: No evidence of deep venous thrombosis involving the bilateral lower extremities. Electronically signed by: Xu Gonzalez MD 08/06/2025 12:44 PM EST
--- NOTE | ~2025-08-06 | CT_ITS ---
EXAMINATION: CT ANGIOGRAM CHEST CLINICAL INFORMATION: +d-dimer, SOB, hypoxic COMPARISON: Jul 23, 2020 TECHNIQUE: Multiple axial images were obtained through the chest after the administration of 65 mL of Omnipaque 350 intravenous contrast. Extensive vascular post-processing including two-dimensional and three-dimensional reformatted images were created and reviewed on an independent workstation. This CT examination was performed using dose optimization techniques as appropriate, variously including the following: *Automated exposure control *Adjustment of mA and/or kV according to patient size (this includes techniques or standardized protocols for targeted exams where dose is matched to indication/reason for exam; i.e. extremities or head) *Use of iterative reconstruction technique FINDINGS: QUALITY OF STUDY/CONTRAST BOLUS: Suboptimal with incomplete opacification of tertiary branches. PULMONARY ARTERIES: No central pulmonary emboli. Emboli of peripheral vessels cannot be excluded with certainty. THORACIC AORTA: No aneurysm, dissection, and minimal vascular calcifications are present. LUNGS AND PLEURA: Focal airspace opacity with air bronchograms is present in the left lower lobe contacting the left hemidiaphragm. Again seen are numerous 2 small soft tissue pulmonary nodules, unchanged. The largest measure 3 mm, one in the posterior right upper lobe, and one in the anterior left apex. MEDIASTINUM: Enlargement of the cardiac silhouette on x-ray correlates to increased paracardial fat on the CT without actual cardiac enlargement. CORONARY ARTERY CALCIFICATION: No CHEST WALL/AXILLA: No axillary or internal mammary lymphadenopathy. UPPER ABDOMEN: Unremarkable BONES: Severe degenerative changes present at T12-L1 with vacuum phenomena, endplate sclerosis, and moderate loss of disc height. CT/CT angio chest PE protocol IMPRESSION: No filling defects are identified in the pulmonary arteries to suggest pulmonary embolus. Peripheral vessels are poorly opacified due to contrast bolus timing. Left lower lobe pneumonia. Stable small pulmonary nodules require no further follow-up per Fleischner Society recommendations. Fleischner guidelines were followed. Electronically signed by: Reynaldo Cruz MD 08/06/2025 01:21 PM RAD[facility]
--- NOTE | 2025-08-06 08:27 | ECG_ITS ---
Test Reason : SOB Blood Pressure : */* mmHG Vent. Rate : 67 BPM Atrial Rate : * BPM P-R Int : * ms QRS Dur : 82 ms QT Int : 400 ms P-R-T Axes : * 3 33 degrees QTcB Int : 422 ms Normal sinus rhythm Premature atrial complexes Abnormal ECG When compared with ECG of 23-Aug-2024 18:26, No significant change was found Referred By: Generic ED Physician Electronically Signed By: DAVIDSON IRVING
[2025-08-06 08:45] LABS: MANUAL DIFF FLAG NO
[2025-08-06 08:48] LABS: Hematocrit 27.8 % (37.0-47.0); Hemoglobin 8.5 g/dl (12.0-16.0); Imm Gran Abs Auto 0.08 X10*3/uL (0.00-0.03); Imm Gran Pct Auto 0.7 % (0.0-0.4); Lymphocytes Absolute Auto 2.0 X10*3/uL (1.2-4.9); Mean Corpuscular HGB Conc 30.6 g/dl (31.0-35.0); Mean Corpuscular Hemoglobin 23.0 pg (27.0-33.0); Mean Corpuscular Volume 75.1 fL (80.0-98.0); NRBC Abs Auto 0.000 X10*3/uL (0.0-0.012); NRBC Pct Auto 0.0 /100WBC (0.0-0.2); Platelet Count 370 X10*3/uL (160-400); Red Blood Count 3.70 X10*6/uL (4.20-5.50); White Blood Count 11.3 X10*3/uL (4.8-10.8)
[2025-08-06 08:59] LABS: Alanine Aminotransferase 11 U/L (0-31); Albumin Level 3.9 g/dL (3.5-5.0); Alkaline Phosphatase 112 U/L (39-117); Anion Gap 13 (12-20); Aspartate Amino Transferase 18 U/L (5-31); Blood Urea Nitrogen 13 mg/dL (9-16); Calcium 9.0 mg/dL (8.4-10.2); Carbon Dioxide 27 mmol/L (22-29); Chloride 109 mmol/L (96-108); Creatinine Clr Calc Pharmacy 43.0; Estimated Glomerular Filt Rate > 60; Potassium 4.5 mmol/L (3.3-5.1); Sodium 144 mmol/L (135-145); Total Protein 6.9 g/dL (6.5-8.0)
[2025-08-06 09:04] LABS: NT Pro B Type Natriuretic Pept 245.9 pg/mL (<300)
[2025-08-06 09:11] LABS: Troponin-I High Sensitivity < 2.7 ng/L (<3.5-17.0)
--- NOTE | 2025-08-06 09:42 | ED.GENADULT ---
HPI - General Adult General Chief complaint: Upper Respiratory Symptoms Stated complaint: DYSPNEA ON EXER,COUGH X1W PER EMS Time Seen by Provider: 08/06/25 09:41 Source: patient and RN notes reviewed Mode of arrival: ambulatory Limitations: no limitations History of Present Illness ED Provider: Alyson Richard PA-C HPI narrative: This is a 79-year-old female, with a past medical history of COPD, who presents emergency department with concerns of productive cough x5 days with associated chills, bilateral eye redness, drainage. Patient reports that approximately 5 days ago she developed a productive cough with yellow/green colored sputum. She also endorses chills, and also developed bilateral eye redness and drainage. She states that she has been using her inhaler at home which has provided her without any relief. She denies any fevers or chills. She does endorse slight chest pain, denies any current chest pain at this moment. She states that the shortness of breath occurs with exertion. Denies any sick contacts. No other complaints or concerns at this time. MD complaint: Cough, shortness of breath Relieving factors: none Exacerbating factors: none Associated symptoms: cough Related Data Home Medications ?Medication ?Instructions ?Recorded ?Confirmed acetaminophen 650 mg 650 mg PO Q8H PRN Pain 10/24/20 08/07/25 tablet,extended release aspirin 81 mg tablet,delayed 81 mg PO DAILY 10/24/20 08/07/25 release atorvastatin 40 mg tablet 40 mg PO BEDTIME 10/24/20 08/07/25 baclofen 10 mg tablet 10 mg PO BID 10/24/20 08/07/25 calcium 600 mg (as 1 tab PO BID 10/24/20 08/07/25 carbonate)-vitamin D3 10 mcg (400 unit) tablet cyanocobalamin (vitamin B-12) 1,000 mcg PO DAILY 10/24/20 08/07/25 1,000 mcg tablet gabapentin 300 mg capsule 300 mg PO TID 10/24/20 08/07/25 insulin glargine 100 unit/mL (3 42 unit subcut DAILY 10/24/20 08/07/25 mL) subcutaneous pen (Lantus Solostar U-100 Insulin) lisinopril 10 mg tablet 10 mg PO DAILY 10/24/20 08/07/25 metformin 500 mg tablet 1,000 mg PO BID 10/24/20 08/07/25 tramadol 50 mg tablet 50 mg PO Q6H PRN Pain 10/24/20 08/07/25 docusate sodium 100 mg capsule 100 mg PO DAILY PRN Constipation 08/07/25 08/07/25 (Colace) omega-3 fatty acids 1,000 mg 1,000 mg PO BID 08/07/25 08/07/25 capsule omeprazole 40 mg capsule,delayed 40 mg PO BID@0630,1630 08/07/25 08/07/25 release Previous Rx's ?Medication ?Instructions ?Recorded sennosides 8.6 mg capsule (senna) 17.2 mg (2 x 8.6 mg) PO BEDTIME 10/24/20 constipation 30 days #60 caps nebulizers #1 ea 08/24/24 Allergies Allergy/AdvReac Type Severity Reaction Status Date / Time No Known Allergies Allergy Verified 08/06/25 08:27 Review of Systems Review of Systems: Constitutional : No Fever, +Chills ENT/Mouth : No sore throat, No Rhinorrhea Eyes: No Eye Pain, No Swelling, No Redness Cardiovascular : No Chest Pain, No SOB Respiratory : + Cough,+ Sputum Gastrointestinal : No Nausea, No Vomiting, No Diarrhea, No abdominal Pain Genitourinary : No Dysuria, No Hematuria Musculoskeletal : No joint pain, No Myalgias, No Joint Swelling Skin : No Skin Lesions, positive skin rash Neuro : No Weakness, No Numbness, No Headache All other systems reviewed and are negative Yes all other systems are reviewed and are negative Constitutional: Constitutional: Reports as per [facility] Past Medical History Medical History (Updated 08/06/25 @ 16:04 by Lois Hawk NP) Hypertension Diabetes mellitus Depression Asthma COPD (chronic obstructive pulmonary disease) Surgical History Hx of colonoscopy Family History Family History Father Diabetes Myocardial infarction Mother Diabetes Brother Diabetes Sister Diabetes Heart problem Daughter Breast cancer Heart problem Paternal Uncle Colon cancer Son Liver cancer Social History Social History (Updated 10/24/20 @ 13:45 by PIPE Rao) Alcohol intake: current Alcohol intake frequency: does not drink Patient Tobacco Use Status: Current everyday Tobacco user Tobacco use type: Cigarette Cigarette Packs Per Day: 1 Cigarettes Per Day: 20.0 Second Hand Smoke Exposure: No Physical Exam ED Vital Signs: Vital Signs - 24 hr 08/06/25 14:23 Temperature 98.1 F Pulse Rate 87 Respiratory Rate 22 H Blood Pressure 125/50 L Pulse Oximetry 96 Oxygen Delivery Method Nasal Cannula Oxygen Flow Rate 2 BMI result Body Mass Index 29.9 Const General: cooperative, comfortable and no acute distress Orientation/consciousness: patient oriented x3 Limitations: no limitations HENMT Head: Yes normal to inspection, Yes normocephalic and Yes atraumatic Ears: hearing grossly normal bilaterally General nose exam: Normal external nose present Face and sinus: Yes normal facial exam Mouth: Normal oral and palatal mucosa present, oropharynx normal and moist mucous membranes Throat: Yes posterior oropharynx normal Eyes General: appearance normal, both eyes and all related structures Eyelids: Yes eyelids normal Conjunctivae: conjunctivae normal Sclerae: sclerae normal Pupils: Equal, round and reactive pupils present EOM: EOMs intact bilaterally Neck Neck: Yes normal visual inspection, Yes full ROM and Yes no lymphadenopathy Lymphatic: no lymphadenopathy noted Chest Chest palpation & inspection: normal inspection of the chest Resp Other: Inspiratory and expiratory wheezes noted throughout all lung ríos. Effort & Inspection: normal respiratory effort and able to speak in complete sentences Cardio Rate: regular rate Rhythm: regular rhythm Heart sounds: S1 normal heart sound present and S2 normal heart sound present GI Inspection: Yes normal to inspection Skin General skin exam: no rashes or lesions noted Trauma: no lacerations or abrasions Wounds: no wounds Neuro General: patient oriented x3 and moves all extremities Cranial nerves: Yes Equal, round and reactive pupils present Extrem Other: No pedal edema, tenderness palpation along the calves. General: Yes normal to inspection Right upper extremity: normal to inspection Left upper extremity: normal to inspection Right lower extremity: normal to inspection Left lower extremity: normal to inspection Medications Administered Generic Name Dose Route Start Last Admin Trade Name Freq PRN Reason Stop Dose Admin Heparin Sodium (Porcine) 5,000 unit 08/06/25 16:00 08/07/25 03:55 Heparin Sodium,Porcine 5,000 Unit/Ml Vial SUBCUT 5,000 unit Q12H CHAD Administration Azithromycin 500 mg/ Sodium 250 mls @ 125 mls/hr 08/06/25 16:00 08/06/25 18:45 Chloride IV Infused Q24H CHAD Infusion Iron Sucrose 100 mg/ Sodium 55 mls @ 220 mls/hr 08/06/25 17:30 08/06/25 23:49 Chloride IV 08/09/25 17:29 Infused DAILY@1700 CHAD Infusion Insulin Human Lispro 0 unit 08/07/25 07:30 08/07/25 11:32 Insulin Lispro 100 Unit/Ml 3 Ml Vial SUBCUT Not Given QIDACHS [facility] Protocol Magnesium Oxide 400 mg 08/06/25 17:30 08/07/25 08:37 Magnesium Oxide 400 Mg Tablet PO 400 mg BIDPC CHAD Administration Nicotine 21 mg 08/07/25 10:45 08/07/25 11:22 Nicotine 21 Mg Patch.Td24 TRANSDERMA 21 mg DAILY CHAD Administration Sodium Chloride 3 ml 08/06/25 16:00 08/07/25 08:39 0.9 % Sodium Chloride Flush 3 Ml Syringe IVFLUSH 3 ml QSHIFT CAHD Administration Discontinued Medications Generic Name Dose Route Start Last Admin Trade Name Freq PRN Reason Stop Dose Admin Levalbuterol HCl 3.75 mg/ 0 mg 08/06/25 10:22 08/06/25 10:28 Ipratropium [place] 0.5 mg INHALE 08/06/25 10:23 7.5 dose ONCE ONE Administration Guaifenesin/Dextromethorphan 5 ml 08/07/25 00:23 08/07/25 03:55 Guaifenesin Dm 100/10/5 Ml 5 Ml Syrup PO 5 ml Q6H PRN Administration Cough Magnesium Sulfate 2 gm in 50 mls @ 150 mls/hr 08/06/25 11:10 08/06/25 12:06 Magnesium Sulfate/H2o IV 08/06/25 11:29 Infused ONCE ONE Infusion Ceftriaxone Sodium 1 gm/ 50 mls @ 100 mls/hr 08/06/25 14:04 08/06/25 15:23 Sodium Chloride IV 08/06/25 14:33 Infused ONCE ONE Infusion Doxycycline Hyclate 100 mg/ 250 mls @ 166.67 mls/hr 08/06/25 14:04 08/06/25 16:33 Sodium Chloride IV 08/06/25 15:33 Infused ONCE ONE Infusion Sodium Chloride 1,000 mls @ 999 mls/hr 08/06/25 14:06 08/06/25 16:55 Ns IV 08/06/25 15:06 Infused .Q1H1M ONE Infusion Iohexol 100 ml 08/06/25 12:58 08/06/25 13:02 Iohexol 350 Mg/Ml 100 Ml Infus..Btl IV 08/06/25 12:59 65 ml ONCE ONE Administration Methylprednisolone Sodium Succinate 60 mg 08/06/25 10:19 08/06/25 10:33 Methylprednisolone Sod Succ 125 Mg/2 Ml Vial IVPUSH 08/06/25 10:20 60 mg ONCE ONE Administration Medical Decision Making Medical Decision Making [facility] Narrative: This is a 79-year-old female, with a past medical history of COPD, who presents emergency department with concerns of productive cough x5 days with associated chills, bilateral eye redness, drainage. On arrival, patient well-appearing, appears to be under no acute distress. Patient with inspiratory and expiratory wheezes noted throughout all lung ríos. EKG appears to be a regular however P waves are small, appears to be a sinus arrhythmia. Does not appear to be atrial fibrillation. I discussed this with my attending physician, Dr. Lebron. Differential diagnoses include viral URI, pneumonia, CHF. Plan: Labs, EKG, chest x-ray, IV Solu-Medrol, IV magnesium, DuoNeb 1:04 PM 08/06/2025 (Alyson Richard PA-C): Patient had an episode of hypoxia, went down to 85%, placed on 2 L nasal cannula. D-dimer was obtained, elevated at 339. Given hypoxia, chest pain, CTA was obtained and is pending at this time. We will continue to closely monitor. 2:22 PM 08/06/2025 (Alyson Richard PA-C): CTA was performed, revealing a left lower lobe pneumonia. Lactic, blood cultures, fluids, and antibiotics ordered. Given hypoxia in the setting of pneumonia, patient needs to be admitted for further management. Transfer of care initiated. Differential Diagnosis Differential Diagnoses: The differential diagnosis associated with the presentation includes See above Admission/Observation Consideration of admission/observation: Escalation of care including admission/observation considered Lab Data [facility] Lab Attestation statement: I reviewed the patient's lab results. See [facility] 08/07/25 05:09 08/07/25 05:09 Labs: Lab Results 08/06/25 08/06/25 08/06/25 Range/Units 08:38 11:55 14:32 WBC 11.3 H (4.8-10.8) X10*3/uL RBC 3.70 L (4.20-5.50) X10*6/uL Hgb 8.5 L (12.0-16.0) g/dl Hct 27.8 L (37.0-47.0) % MCV 75.1 L (80.0-98.0) fL MCH 23.0 L (27.0-33.0) pg MCHC 30.6 L (31.0-35.0) g/dl RDW 18.0 H (11.0-16.0) % Plt Count 370 (160-400) X10*3/uL MPV 8.8 L (9.4-12.3) fL Immature Gran % (Auto) 0.7 H (0.0-0.4) % Neut % (Auto) 74.1 H (45-73) % Lymph % (Auto) 17.6 L (20-40) % [place] % (Auto) 6.6 (2-11) % Eos % (Auto) 0.5 (0-4) % Baso % (Auto) 0.5 (0-2) % Lymph # (Auto) 2.0 (1.2-4.9) X10*3/uL [place] # (Auto) 0.8 (0.1-1.2) X10*3/uL Eos # (Auto) 0.1 (0.0-0.4) X10*3/uL Baso # (Auto) 0.1 (0.0-0.2) X10*3/uL Abs Immat Gran (auto) 0.08 H (0.00-0.03) X10*3/uL Absolute Neuts (auto) 8.3 (2.0-8.3) x10*3/uL Absolute Nucleated RBC 0.000 (0.0-0.012) X10*3/uL Nucleated RBC % (auto) 0.0 (0.0-0.2) /100WBC D-Dimer High Sensitivty 339 NG/ML VBG pH (7.32-7.43) VBG pCO2 mmHg VBG pO2 mmHg VBG HCO3 (22-26) mmol/L VBG O2 Saturation % VBG Base Excess mmol/L Sodium 144 (135-145) mmol/L Potassium 4.5 (3.3-5.1) mmol/L Chloride 109 H (96-108) mmol/L Carbon Dioxide 27 (22-29) mmol/L Anion Gap 13 (12-20) BUN 13 (9-16) mg/dL Creatinine 0.82 (0.5-1.4) mg/dL Estim Creat Clear Calc 43.0 Estimated GFR > 60 Random Glucose 131 H (60-115) mg/dL Lactic Acid 1.5 (0.5-2.0) mmol/L Calcium 9.0 (8.4-10.2) mg/dL Magnesium 1.2 L* (1.6-2.6) mg/dL Iron 18 L (30-160) mcg/dL TIBC 299 (228-428) mcg/dL % Saturation 6 L (15-50) % Unsat Iron Binding 281 ug/dL Total Bilirubin 0.1 (0.0-1.0) mg/dL AST 18 (5-31) U/L ALT 11 (0-31) U/L Alkaline Phosphatase 112 (39-117) U/L Troponin I High Sens < 2.7 (<3.5-17.0) ng/L NT-Pro-B Natriuret Pep 245.9 (<300) pg/mL Total Protein 6.9 (6.5-8.0) g/dL Albumin 3.9 (3.5-5.0) g/dL Influenza Type A (PCR) NEGATIVE (Negative) Influenza Type B (PCR) NEGATIVE (Negative) RSV RNA Qual (PCR) NEGATIVE (Negative) SARS-CoV-2 RNA (RT-PCR) NEGATIVE (Negative) 08/06/25 Range/Units 14:41 WBC (4.8-10.8) X10*3/uL RBC (4.20-5.50) X10*6/uL Hgb (12.0-16.0) g/dl Hct (37.0-47.0) % MCV (80.0-98.0) fL MCH (27.0-33.0) pg MCHC (31.0-35.0) g/dl RDW (11.0-16.0) % Plt Count (160-400) X10*3/uL MPV (9.4-12.3) fL Immature Gran % (Auto) (0.0-0.4) % Neut % (Auto) (45-73) % Lymph % (Auto) (20-40) % [place] % (Auto) (2-11) % Eos % (Auto) (0-4) % Baso % (Auto) (0-2) % Lymph # (Auto) (1.2-4.9) X10*3/uL [place] # (Auto) (0.1-1.2) X10*3/uL Eos # (Auto) (0.0-0.4) X10*3/uL Baso # (Auto) (0.0-0.2) X10*3/uL Abs Immat Gran (auto) (0.00-0.03) X10*3/uL Absolute Neuts (auto) (2.0-8.3) x10*3/uL Absolute Nucleated RBC (0.0-0.012) X10*3/uL Nucleated RBC % (auto) (0.0-0.2) /100WBC D-Dimer High Sensitivty NG/ML VBG pH 7.35 (7.32-7.43) VBG pCO2 45 mmHg VBG pO2 61 mmHg VBG HCO3 25 (22-26) mmol/L VBG O2 Saturation 83.0 % VBG Base Excess -0.3 mmol/L Sodium (135-145) mmol/L Potassium (3.3-5.1) mmol/L Chloride (96-108) mmol/L Carbon Dioxide (22-29) mmol/L Anion Gap (12-20) BUN (9-16) mg/dL Creatinine (0.5-1.4) mg/dL Estim Creat Clear Calc Estimated GFR Random Glucose (60-115) mg/dL Lactic Acid (0.5-2.0) mmol/L Calcium (8.4-10.2) mg/dL Magnesium (1.6-2.6) mg/dL Iron (30-160) mcg/dL TIBC (228-428) mcg/dL % Saturation (15-50) % Unsat Iron Binding ug/dL Total Bilirubin (0.0-1.0) mg/dL AST (5-31) U/L ALT (0-31) U/L Alkaline Phosphatase (39-117) U/L Troponin I High Sens (<3.5-17.0) ng/L NT-Pro-B Natriuret Pep (<300) pg/mL Total Protein (6.5-8.0) g/dL Albumin (3.5-5.0) g/dL Influenza Type A (PCR) (Negative) Influenza Type B (PCR) (Negative) RSV RNA Qual (PCR) (Negative) SARS-CoV-2 RNA (RT-PCR) (Negative) Independent Interpretation I performed an independent interpretation of an: EKG Interpretation: EKG performed at 8:53 a.m. revealing sinus arrhythmia. Questioning atrial fibrillation however patient does have discernible P waves, cushion normal sinus rhythm with PACs and sinus arrhythmia. Reviewed with my attending physician, Dr. Lebron. EKG performed at 10:37 a.m. for repeat, still revealing normal sinus rhythm with PACs and sinus arrhythmia at a rate of 72 beats per minute. There are small yet discernible P waves, this does not appear to be atrial fibrillation, reviewed again with my attending physician. Radiology Impression Discussion of test interpretation with radiology: I have reviewed the radiologist's reading. Radiologist Impression: FINDINGS: QUALITY OF STUDY/CONTRAST BOLUS: Suboptimal with incomplete opacification of tertiary branches. PULMONARY ARTERIES: No central pulmonary emboli. Emboli of peripheral vessels cannot be excluded with certainty. THORACIC AORTA: No aneurysm, dissection, and minimal vascular calcifications are present. LUNGS AND PLEURA: Focal airspace opacity with air bronchograms is present in the left lower lobe contacting the left hemidiaphragm. Again seen are numerous 2 small soft tissue pulmonary nodules, unchanged. The largest measure 3 mm, one in the posterior right upper lobe, and one in the anterior left apex. MEDIASTINUM: Enlargement of the cardiac silhouette on x-ray correlates to increased paracardial fat on the CT without actual cardiac enlargement. CORONARY ARTERY CALCIFICATION: No CHEST WALL/AXILLA: No axillary or internal mammary lymphadenopathy. UPPER ABDOMEN: Unremarkable BONES: Severe degenerative changes present at T12-L1 with vacuum phenomena, endplate sclerosis, and moderate loss of disc height. CT/CT angio chest PE protocol IMPRESSION: No filling defects are identified in the pulmonary arteries to suggest pulmonary embolus. Peripheral vessels are poorly opacified due to contrast bolus timing. Left lower lobe pneumonia. Stable small pulmonary nodules require no further follow-up per Fleischner Society recommendations. Fleischner guidelines were followed. Electronically signed by: Reynaldo Cruz MD 08/06/2025 01:21 PM EST RP Dictated By: Reynaldo Cruz MD FINDINGS: Respiratory variation, normal compression and augmented flow are noted throughout the bilateral lower extremities. The visualized common femoral vein, superficial femoral vein, profunda femoral vein, popliteal vein and midcalf peroneal and posterior tibial venous segments show no evidence of deep venous thrombosis bilaterally. There is no Miranda's cyst. US/US venous duplex LE BI IMPRESSION: No evidence of deep venous thrombosis involving the bilateral lower extremities. Electronically signed by: Xu Gonzalez MD 08/06/2025 12:44 PM EST RP Dictated By: Xu Gonzalez MD FINDINGS: Increased attenuation at the right cardiophrenic angle. When compared with prior CT this may represent prominent epicardial fat. Lungs are otherwise clear. No pleural effusion or pneumothorax. Upper normal size cardiac silhouette. Hilar and mediastinal contours are unremarkable. Mild degenerative changes of the spine and scoliosis. Degenerative changes at the shoulders. XR/XR chest 2V IMPRESSION: Increased attenuation of the right cardiophrenic angle. When compared with prior CT of the abdomen and pelvis this may be related to prominent epicardial fat. Lungs otherwise clear. Upper normal size cardiac silhouette. Electronically signed by: Cookie Hearn MD 08/06/2025 08:59 AM EST RP Dictated By: Cookie Hearn MD Critical Care Time Critical Care Time Critical Care Time: Yes Total Critical Care Time: 45 Attestation: I have personally provided critical care time exclusive of time spent on separately billable procedures. Time includes review of lab data, radiology results, discussion with consultants, and monitoring for potential decompensation. Intervention performed as documented. Discharge Plan Discharge Clinical Impression: Pneumonia, Hypoxia Patient Disposition: Admitted As Inpatient Interventions: Admission Worksheet (ED) Last Done: 08/06/25 19:10 Discharge Date/Time: 08/06/25 19:40
--- NOTE | 2025-08-06 09:55 | ECG_ITS ---
Test Reason : REPEAT Blood Pressure : */* mmHG Vent. Rate : 72 BPM Atrial Rate : * BPM P-R Int : * ms QRS Dur : 78 ms QT Int : 388 ms P-R-T Axes : * 7 40 degrees QTcB Int : 424 ms Normal sinus rhythm Premature atrial complexes Abnormal ECG When compared with ECG of 06-Aug-2025 08:53, No significant change was found Referred By: Alyson Richard Electronically Signed By: DAVIDSON IRVING
[2025-08-06 10:01] LABS: Resp Syncy Virus RNA Qual PCR NEGATIVE (Negative); SARS COV2 PCR INHOUSE NEGATIVE (Negative)
[2025-08-06] MEDS: levalbuterol HCL 3.75 MG, Ipratropium Bromide 0.5 MG INHALE (10:28)
--- OUTSIDE RECORDS SUMMARY | 2025-08-06 10:49 | XMS_ITS | Encounter Summary ---
Author Organization [employer] Address [address] [place] [address] Care Team Providers Care Part Time Name Role Phone Edilma Norwood DO Primary Care Provider + [phone] Reason for Visit * Reason Comments Med Refill Encounter Details Date Type Department Care Team (Late st Contact Info) Description 08/01/2025 Refill [facility] [address] [place] [address] Edilma Norwood DO [address] [place], [place] [phone] Chronic bilateral low back pain, unspecified whether sciatica present Social History Tobacco Use Types Packs/Day Years Used Date Smoking Tobacco: Every Day Cigarettes Passive Smoke Exposure: Current Smokeless Tobacco: Never Alcohol Use Standard Drinks/Week Comments Never 0 (1 standard drink = 0.6 oz pur e alcohol) Depression Answer Date Recorded Patient Health Questionnaire-9 Score 13 06/06/2025 Patient Health Questionnaire-9 Score 13 06/06/2025 Last PHQ-9: Questionnaire Data Not on file 1 Housing Stability Answer Date Recorded What is your housing situation today? I have мария sanford 06/06/[address] you li ve. Do you have problems with any of the following? None of the above 06/06/2025 Food Insecurity Answer Date Recorded Within the past 12 months, y ou worried that your food would run out before you got money to buy more: Never True 2024 Within the past 12 months,th e food you bought just didn't last and you didn't have enough money to get more: Sometimes True 06/06/2025 Transportation Answer Date Recorded In the past 12 months, has l ack of transportation kept you from medical appts, meetings, work or from getting things needed for daily living? No 06/06/2025 Utilities Answer Date Recorded In the past 12 months, has t he electric, gas, oil or water company threatened to shut off services in your home? No 06/06/2025 Depression Answer Date Recorded Patient Health Questionnaire-2 Score 2 06/06/2025 Internet Access Answer Date Recorded Internet Access Q1 Yes 06/06/2025 Internet Access Q2 Not on file 06/06/2025 Comments No Sex and Gender Information Value Date Recorded Sex Assigned at Female 07/06/2022 10:14 AM EDT Legal Sex Female 10:14 AM EDT Gender Identity Female 07/06/2022 10:14 AM EDT Sexual Orientation Straight 07/06/2022 10 :14 AM EDT documented as of this encounter Plan of Treatment Upcoming Encounters Date Type Department Care Team (Late st Contact Info) Description 09/27/2025 2:00 PM EST Office Visit [facility] OPTOMETRY [address] [place] [address] Demi Arias, OD [address] [place] [address] documented as of this encounter Goals Goal Patient Goal Type Associated Problems Recent Progress Patient-Stated? Author Hemoglobin A1c < 7.5 Result Component 7.1(06/06/20 25 11:48 AM EDT) No Jakob Liz, JacqueD Note: Age, comorbidities documented as of this encounter Visit Diagnoses Diagnosis Chronic bilateral low back pain, unspecified whether sciatica present documented in this encounter Additional Health Concerns Assessment Noted Time PHQ-9 Depression Total Score: 13 025 11:46 AM EDT documented as of this encounter Care Teams Part Time Relationship Specialty Start Date End Date Edilma Norwood DO [address] [place] [address] PCP - General Family Medicine 12/14/11 documented as of this encounter
--- OUTSIDE RECORDS SUMMARY | 2025-08-06 10:49 | XMS_ITS | Encounter Summary ---
Author Organization [employer] Address [address] [place] [address] [address] [place] [address] Care Team Providers Care Machine Maintenance Servicer Name Role Phone Edilma Norwood DO Primary Care Provider + [phone] Jakob Liz PharmD Unavailable Unavail able Encounter Details Date Type Department Care Team (Late Contact Info) Description 08/14/2022 Orders Only [facility] [address] [place] [address] Lucero Perry LPN Social History Tobacco Use Types Packs/Day Years Used Date Smoking Tobacco: Never Assessed Comments Unknown Sex and Gender Information Value Date Recorded Sex Assigned at Female 07/06/2022 10:14 AM EDT Legal Sex Female 10:14 AM EDT Gender Identity Female 07/06/2022 10:14 AM EDT Sexual Orientation Straight 07/06/2022 10 :14 AM EDT COVID-19 Exposure Response Date Recorded In the last 10 days, have yo u been in contact with someone who was confirmed or suspected to have Coronavirus/COVID-19? No / Unsure 08/17/2022 9:16 AM EST documented as of this encounter Plan of Treatment Upcoming Encounters Date Type Department Care Team (Late Contact Info) Description 09/27/2025 2:00 PM EST Office Visit [facility] OPTOMETRY [address] [place] [address] Hugo, Demi, OD [address] [place] [address] documented as of this encounter Visit Diagnoses Not on filedocumented in this encounter Care Teams Machine Maintenance Servicer Relationship Specialty Start Date End Date Edilma Norwood DO [address] [facility] [place] [address] PCP - General Family Medicine 12/14/11 Jakob Liz PharmD [address] [place] [address] Pharmacist Internal Medicine 10/05/22 02/07/23 documented as of this encounter
--- OUTSIDE RECORDS SUMMARY | 2025-08-06 10:49 | XMS_ITS | Encounter Summary ---
Author Organization [employer] Address [address] [facility] [address] [place] [address] Care Team Providers Care Global Consumer Sector Vice President Name Role Phone Enma Edilma Primary Care Provider + [phone] Jakob Liz PharmD Unavailable Unavail able Encounter Details Date Type Department Care Team (Late Contact Info) Description 09/22/2022 Orders Only [facility] [address] [place] [address] Edilma Figueroa LPN Social History Tobacco Use Types Packs/Day [...] suspected to have Coronavirus/COVID-19? No / Unsure 09/02/2022 9:50 AM EST documented as of this encounter Plan of Treatment Upcoming Encounters Date Type Department Care Team (Late Contact Info) Description 09/27/2025 2:00 PM EST Office Visit [facility] [address] [place] [address] Hugo, Demi, OD [address] [place] [address] documented as of this encounter Visit Diagnoses Not on filedocumented in this encounter Care Teams [employer] Vice President Relationship Specialty Start Date End Date Edilma Norwood DO [address] [place] [address] PCP - General Family Medicine 12/14/11 Jakob Liz PharmD [address] [place] [address] Pharmacist Internal Medicine 10/05/22 02/07/23 documented as of this encounter
--- OUTSIDE RECORDS SUMMARY | 2025-08-06 10:49 | XMS_ITS | Encounter Summary ---
Author Organization [employer] Address [address] [facility] [address] [place] [address] Care Team Providers Care Salesperson [employer] Accessories Name Role Phone Enma Edilma Primary Care Provider [phone] Jakob Liz PharmD Unavailable Unavail able Encounter Details Date Type Department Care Team (Late Contact Info) Description 09/02/2022 Orders Only [facility] [address] [place] [address] Edilma Figueroa LPN Social History Tobacco Use [...] Visit [facility] [address] [place] [address] Hugo, Demi, OD [address] [place] [address] documented as of this encounter Visit Diagnoses Not on filedocumented in this encounter Care Teams Salesperson [employer] Access[employer] Relationship Specialty Start Date End Date Edilma Norwood DO [address] [place] [address] PCP - General Family Medicine 12/14/11 Jakob Liz PharmD [address] [place] [address] Pharmacist Internal Medicine 10/05/22 02/07/23 documented as of this encounter
--- OUTSIDE RECORDS SUMMARY | 2025-08-06 10:49 | XMS_ITS | Clinical Summary ---
Author Organization [employer] Address [address] [place] [address] [address] [place] [address] Care Team Providers Care Senior Sales Operations Analyst Name Role Phone Edilma Norwood DO Primary Care Provider [phone] Allergies No known active allergies Medications nicotine (Nicoderm CQ) 14 MG/24HR patchIndications: Tobacco dependence syndrome Place 1 patch on the skin 1 (one) time each day at the same time. 30 patch 1 Active Ventolin HFA 108 (90 Base) MCG/ACT inhaler INHALE 2 PUFFS BY MOUTH EVERY 4 HOURS NEEDED SHORTNESS OF BREATH Active UltiGuard SafePack Pen Needle 32G X 4 MM misc USE DIRECTED FOUR TIMES DAILY 100 each 11 024 Active Varenicline Tartrate, Starter, (Chantix Starting Month ) 0.5 MG X 11 & 1 MG X 42 tablet therapy pack Take 0.5 mg by mouth Once per day for 3 days, THEN 0.5 mg 2 times daily for 4 days, THEN 1 mg 2 times daily for 21 days. START ONE WEEK PRIOR TO TOBACCO CESSATION. 53 each 024 Active omega-3 (Fish Oil) 1000 MG capsuleIndication s:Hyperlipidemia, unspecified hyperlipidemia type TAKE 1 CAPSULE BY MOUTH TWICE DAILY IN THE MORNING AND IN THE EVENING 60 capsule 5 024 Active fluticasone (Flovent) 110 MCG/ACT inhaler Inhale 1 puff in the morning and at bedtime. Rinse mouth with water after use to reduce aftertaste and incidence of candidiasis. Do not swallow. 12 g 11 025 2025 Active Arnuity Ellipta 200 MCG/ACT inhaler INHALE 1 PUFFS BY MOUTH TWICE DAILY RINSE MOUTH AFTER USING. 30 each 8 08/01/20 25 4:50 PM EST 025 Active glucose blood (FREESTYLE LITE) test stripIndications: Type 2 diabetes mellitus with diabetic polyneuropathy, with long-term current use of insulin (HCC) TEST BLOOD SUGAR THREE TIMES DAILY 100 strip 025 Active atorvastatin (Lipitor) 40 MG tabletIndications :Hyperlipidemia, unspecified hyperlipidemia type TAKE 1 TABLET BY MOUTH AT BEDTIME 30 tablet 5 025 Active Aspirin Low Dose 81 MG EC tabletIndications :Type 2 diabetes mellitus with other specified complication, unspecified whether prison insulin use (HCC) TAKE 1 TABLET BY MOUTH AT BEDTIME 90 tablet 1 025 Active metFORMIN (Glucophage) 500 MG tabletIndications :Type 2 diabetes mellitus with other specified complication, unspecified whether prison insulin use (HCC) TAKE 2 TABLETS BY MOUTH TWICE DAILY IN THE MORNING AND EVENING 360 tablet 1 025 Active Lantus SoloStar 100 UNIT/ML pen INJECT 45 UNITS SUBCUTANEOUSLY ONCE DAILY 30 mL 3 025 Active docusate sodium (Colace) 100 MG capsuleIndication s:Constipation, unspecified constipation type TAKE 1 CAPSULE BY MOUTH EVERY MORNING 90 capsule 1 025 Active cyanocobalamin (Vitamin B-12) 1000 MCG tablet TAKE 1 TABLET BY MOUTH EVERY OTHER DAY IN THE MORNING 45 tablet 3 025 Active acetaminophen (Tylenol 8 Hour) 650 MG ER tablet TAKE 1 TABLET BY MOUTH EVERY 8 HOURS NEEDED FOR PAIN OR FEVER 100 tablet 2 025 Active gabapentin (Neurontin) 300 MG capsuleIndication s:Chronic neck pain Take 1 capsule (300 mg) by mouth 3 times daily. 90 capsule 5 08/01/20 25 4:50 PM EST 025 Active omeprazole (PriLOSEC) [address] capsuleIndication s:Gastroesophagea l reflux disease without esophagitis TAKE 1 CAPSULE BY MOUTH TWICE DAILY IN THE MORNING AND IN THE EVENING BEFORE MEALS 180 capsule 1 025 Active Calcium Carb-Cholecalcife rol 600-10 MG-MCG tablet TAKE 1 TABLET BY MOUTH TWICE DAILY IN THE MORNING AND IN THE EVENING 180 tablet 1 Active baclofen (Lioresal) 10 MG tabletIndications :Other muscle spasm TAKE 1 TABLET BY MOUTH TWICE DAILY IN THE MORNING AND IN THE EVENING 60 tablet 2 08/01/20 25 4:50 PM EST Active Alcohol Swabs (Alcohol Prep) 70 % padsIndications:T ype 2 diabetes mellitus with diabetic polyneuropathy, with long-term current use of insulin (HCC) USE DIRECTED THREE TIMES DAILY 100 each 5 025 Active TRUEplus Lancets 33G miscIndications:T ype 2 diabetes mellitus with diabetic polyneuropathy, with long-term current use of insulin (HCC) USE THREE TIMES DAILY TEST BLOOD SUGAR 100 each 025 Active traMADol (Ultram) 50 MG tabletIndications :Chronic bilateral low back pain, unspecified whether sciatica present TAKE 1 TABLET BY MOUTH EVERY 6 HOURS NEEDED FOR SEVERE PAIN 112 tablet 025 Active lisinopril 10 MG tabletIndications :Hypertension, unspecified type TAKE 1 TABLET BY MOUTH EVERY MORNING 90 tablet 3 025 Active lisinopril 10 MG tabletIndications :Hypertension, unspecified type TAKE 1 TABLET BY MOUTH EVERY MORNING 90 tablet 3 024 2024 Discontinued Active Problems Problem Noted Date Diagnosed Date Dysphagia 11/21/2024 Urinary incontinence 11/21/2024 Healthcare maintenance 11/21/2024 Chronic constipation 01/02/2024 Neuropathy 10/18/2023 Assessment & Plan (10/18/2023 10:41 AM EST): Followed by neuro, tolerating gabapentin Mild persistent asthma 08/17/2022 Assessment & Plan (10/18/2023 10:30 AM EST): Pt endorses AM wheeze. Reports taking inhaler at night, endorses sob with exertion per baseline Chronic allergic rhinitis 07/29/2015 Chronic neck pain 07/29/2015 Vitamin B12 deficiency 07/29/2015 Essential hypertension 07/29/2015 Assessment & Plan (10/18/2023 10:31 AM EST): Stable bp at goal today. Continue lisinopril 10 mg Hepatitis C antibody test positive 07/29/2015 Hyperlipidemia 07/29/2015 Assessment & Plan (10/18/2023 10:34 AM EST): Continue atorvastatin, labs ordered Chronic bilateral low back pain 07/29/2015 Osteoarthritis 07/29/2015 Osteoporosis 07/29/2015 Assessment & Plan (10/18/2023 10:32 AM EST): Pt declines intervention today, reports compliance with calcium and vit d Encouraged wt bearing exercise Major depression, recurrent, chronic 07/29/2015 Assessment & Plan (10/18/2023 10:35 AM EST): Stable, pt denies symptoms today Tobacco dependence 07/29/2015 Assessment & Plan (10/18/2023 10:36 AM EST): Pt declines assistance cutting down , does have nicotene patches, endorses baseline cough, Aware of eligibility for low dose CT, declines Assessment & Plan (08/17/2022 10:37 AM EST): Will send patches per patient request Type 2 diabetes mellitus 07/29/2015 Assessment & Plan (10/18/2023 10:33 AM EST): At goal today - hgb A1c 7.2 pt endorses diminished appetite, denies lows, continue current regiment Resolved Problems Problem Noted Date Diagnosed Date Resolved Date Unintentional weight loss 10/18/2023 Assessment & Plan (10/18/2023 10:37 AM EST): 8 lbs over 3 months, pt denies night sweats, does endorse cough and sob, x-ray ordered, Pt not certain if diminished appetite is attributable to truclitiy. 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 Pt declines further conversations during visit as she endorses office anxiety and would prefer to leave Shortness of breath 10/18/2023 01/02/20 24 Assessment & Plan (10/18/2023 10:46 AM EST): Likely secondary to tobacco use, but will order x-ray as pt does endorse worsening symptoms pcp has ordered echo Depression 08/17/2022 11/23/2022 Diabetes mellitus 08/17/2022 04/11/2024 Encounters Date Type Department Care Team Description 08/06/2025 Orders Only [facility] External Provider, [facility] 08/01/2025 Refill [facility] [address] [place] [address] Edilma Norwood DO Chronic bilateral low back pain, unspecified whether sciatica present 07/16/2025 Refill [facility] [address] [place] [address] Edilma Norwood DO Hypertension, unspecified type 07/13/2025 Telephone [facility] [address] [place] [address] Edilma Norwood DO 07/05/2025 Refill [facility] [address] [place] [address] Edilma Norwood DO Chronic bilateral low back pain, unspecified whether sciatica present 06/17/2025 Refill [facility] [address] [place] [address] Edilma Norwood DO Type 2 diabetes mellitus with diabetic polyneuropathy, with long-term current use of insulin ([facility]) 06/14/2025 Refill [facility] [address] [place] [address] Edilma Norwood DO Gastroesophageal reflux disease without esophagitis; Other muscle spasm 06/08/2025 Telephone [facility] [address] [place] [address] Edilma Norwood DO 06/06/2025 11:00 AM EDT Office Visit [facility] [address] [place] [phone] Edilma Norwood DO Type 2 diabetes mellitus with diabetic polyneuropathy, with long-term current use of insulin (HCC) (Primary Dx); Essential hypertension; Other hyperlipidemia; Major depression, recurrent, chronic (CMS/HCC); Mild persistent asthma without complication; Tobacco dependence; Chronic constipation; Dysphagia, unspecified type; Chronic bilateral low back pain, unspecified whether sciatica present; Chronic neck pain; Fatigue, unspecified type; Sleep disorder breathing; Bilateral leg pain; Healthcare maintenance; Dietary counseling; Exercise counseling; Encounter for screening mammogram for malignant neoplasm of breast; Screening for colon cancer; Post-menopausal 06/06/2025 Travel 06/05/2025 Telephone [facility] [address] [place] [phone] Edilma Nowrood DO Chart Prep 05/28/2025 Refill [facility] [address] [place] [address] Edilma Norwood DO Chronic bilateral low back pain, unspecified whether sciatica present 05/23/2025 Telephone [facility] [address] [place] [phone] Edilma Norwood DO Change PCP 05/14/2025 Telephone [facility] [address] [place] [phone] Edilma Norwood DO Nurse Triage 05/14/2025 Refill [facility] [address] [place] [phone] Edilma Norwood DO from Last 3 Months Immunizations Immunization Administration Dates Next Due Influenza High-dose Quadrivalent Preservative Fr ee 10/01/2020 Influenza injectable quadriv alent IIV4 with preservative 06/19/2016 Influenza injectable quadrivalent preservative f ree 07/27/2019,10/31/2015 Influenza, High Dose Seasonal, Preservative Free 06/27/2018,06/01/2017 Influenza, IIV3, injectable 07/12/2014, 3 Pfizer Covid-19 Vaccine 12+ 09/08/2021, Pfizer Covid-19 Vaccine 12+ Bivalent 09/02/2022 Pneumococcal Conjugate PCV 13 10/14/2016 Pneumococcal Polysaccharide PPSV23 09/07/2012 Tdap 04/11/2014 Social History Tobacco Use Types Packs/Day Years Used Date Smoking Tobacco: Every Day Cigarettes Passive Smoke Exposure: Current Smokeless Tobacco: Never Tobacco Cessation:Ready to Q uit: Not Asked; Counseling Given: Not Answered Alcohol Use Standard Drinks/Week Comments Never 0 [...] Orientation Straight 07/06/2022 10 :14 AM EDT Last Filed Vital Signs Vital Sign Reading Time Taken Comments Blood Pressure 118/70 06/06/2025 11:45 AM EDT Pulse 72 06/06/2025 11:45 AM EDT Temperature 36.9 C (98.4 F) 06/06/2025 11:45 AM EDT Respiratory Rate 19 06/06/2025 11:45 AM EDT Oxygen Saturation 95% 06/06/2025 11:45 AM EDT Inhaled Oxygen Concentration - - Weight 63.6 kg (140 lb 2 oz) 06/06/2025 11:45 AM EDT Height 144.8 cm (4' 9 ) 06/06/2025 11:45 AM EDT Body Mass Index 30.32 06/06/2025 11:45 AM EDT Plan of Treatment Upcoming Encounters Date Type Department Care Team (Late st Contact Info) Description 09/27/2025 2:00 PM EST Office Visit [facility] [address] [place], [place] [phone] Hugo, Demi, OD [address] [place] [address] Health Maintenance Due Date Last Done Comments Zoster Vaccines (1 of 2) 1996 RSV Patients and Patients Aged 60 years or older (1 - 1-dose 75+ series) 2021 DTaP/Tdap/Td Vaccines (2 - Td or Tdap) 04/11/2024 04/11/2014 Diabetes: Foot Exam 10/18/2024 10/18/2023, Diabetes: Urine Protein Screening 04/27/2025 04/27/2024, 05/13/2022, 10/01/2020 Lipid Panel 04/27/2025 04/27/2024, 09/0 03/2022, 10/01/2020 COVID-19 Vaccine ( season) 2025 09/02/2022, 09/08/2021, 08/18/2021 Influenza Vaccine (#1) 2025 , 07/27/2019, 06/27/2018, Additional history exists Diabetes: Hemoglobin A1C 09/06/2025 025, 11/21/2024, 04/27/2024, Additional history exists Alcohol/Substance Use Screening 11/21/2025 11/21/2024 Depression Monitoring 12/05/2025 06/06/2025, 025 Eye Exam 06/02/2026 06/02/2024, 05/08, 06/02/2024, Additional history exists SDOH Screening 06/06/2026 06/06/2025 Tobacco Screening 06/06/2026 06/06/2025 Pneumococcal Vaccine: 50+ Years Completed 10/14/2016, 09/07/2012 Hepatitis C Screening Completed 04/27/2024 , 04/27/2024, 05/13/2022 HIB Vaccines Aged Out No longer eligi ble based on patient's age to complete this topic HPV Vaccines Aged Out No longer eligi ble based on patient's age to complete this topic Hepatitis A Vaccines Aged Out No long er eligible based on patient's age to complete this topic Hepatitis B Vaccines Aged Out No long er eligible based on patient's age to complete this topic IPV Vaccines Aged Out No longer eligi ble based on patient's age to complete this topic Meningococcal B Vaccine Aged Out No l onger eligible based on patient's age to complete this topic Meningococcal Vaccine Aged Out No hayden rehan eligible based on patient's age to complete this topic RSV under 20 months Aged Out No longe r eligible based on patient's age to complete this topic Rotavirus Vaccines Aged Out No longer eligible based on patient's age to complete this topic Goals Goal Patient Goal Type Associated Problems Recent Progress Patient-Stated? Author Hemoglobin A1c < 7.5 Result Component 7.1(06/06/20 11:48 AM EDT) No Jakob Liz, Yousuf Note: Age, comorbidities Procedures Procedure Name Priority Date/Time Associated Diagnosis Comments XR CHEST 2 VIEWS Routine 08/06/2025 8:43 AM EST HIGH SENSITIVITY TROPONIN I Routine 08/06/2025 8:38 AM EST NT-PROBNP Routine 08/06/2025 8:38 AM EST COMPREHENSIVE METABOLIC PANEL Routine 08/06/2025 8:38 AM EST CBC WITH AUTO DIFFERENTIAL Routine 08/06/2025 8:38 AM EST SARS COV2/INFLUENZA A/B AND RSV RNA QL NAAT Routine 08/06/2025 8:38 AM EST POCT GLYCATED HEMOGLOBIN, TOTAL Routine 06/06/2025 11:48 AM EDT Type 2 diabetes mellitus with diabetic polyneuropathy, with long-term current use of insulin (HCC) POCT GLUCOSE Routine 06/06/2025 11:47 AM EDT Type 2 diabetes mellitus with diabetic polyneuropathy, with long-term current use of insulin (HCC) ALBUMIN, RANDOM URINE W/CREATININE Routine 04/27/2024 9:42 AM EDT Type 2 diabetes mellitus with diabetic polyneuropathy, with long-term current use of insulin (CMS/HCC) Essential hypertension Other hyperlipidemia Major depression, recurrent, chronic (CMS/HCC) Mild persistent asthma without complication Tobacco dependence Chronic constipation Dysphagia, unspecified type Chronic bilateral low back pain, unspecified whether sciatica present Chronic neck pain Urinary incontinence, unspecified type Rib pain on left side Healthcare maintenance HEPATITIS C AB W/REFL TO HCV RNA, QN, PCR Routine 04/27/2024 9:35 AM EDT Type 2 diabetes mellitus with diabetic polyneuropathy, with long-term current use of insulin (CMS/HCC) Essential hypertension Other hyperlipidemia Major depression, recurrent, chronic (CMS/HCC) Mild persistent asthma without complication Tobacco dependence Chronic constipation Dysphagia, unspecified type Chronic bilateral low back pain, unspecified whether sciatica present Chronic neck pain Urinary incontinence, unspecified type Rib pain on left side Healthcare maintenance LIPID PANEL, STANDARD Routine 04/27/2024 9:35 AM EDT Type 2 diabetes mellitus with diabetic polyneuropathy, with long-term current use of insulin (CMS/HCC) Essential hypertension Other hyperlipidemia Major depression, recurrent, chronic (CMS/HCC) Mild persistent asthma without complication Tobacco dependence Chronic constipation Dysphagia, unspecified type Chronic bilateral low back pain, unspecified whether sciatica present Chronic neck pain Urinary incontinence, unspecified type Rib pain on left side Healthcare maintenance from Last 3 Months or Most Recently Relevant to Health Maintenance Results * XR Chest 2 Views (08/06/2025 8:43 AM EST) Anatomical Region Laterality Modality Chest Radiographic Day ging 08/06/2025 8:43 AM EST Narrative 08/06/2025 9:02 AM EST [place] [address] XRay Report Signed Patient: Ariella Dorsey MR#: [id number] 6 : 1945 Acct:[id number] Age/Sex: 79 / F ADM Date: 08/06/25 Loc: .ED Attending Dr: Ordering Physician: Generic ED Physician Date of Service: 08/06/25 Procedure(s): XR chest 2V Accession Number(s): [id number] cc: Generic ED Physician; Edilma Norwood DO Reason for Exam: cough sopb EXAMINATION: XR CHEST CLINICAL INFORMATION: cough sopb COMPARISON: Previous chest x-ray August 2024 CT of the abdomen and pelvis August 2024 TECHNIQUE: 2 views of the chest were obtained. FINDINGS: Increased attenuation at the right cardiophrenic angle. When compared with prior CT this may represent prominent epicardial fat. Lungs are otherwise clear. No pleural effusion or pneumothorax. Upper normal size cardiac silhouette. Hilar and mediastinal contours are unremarkable. Mild degenerative changes of the spine and scoliosis. Degenerative changes at the shoulders. XR/XR chest 2V IMPRESSION: Increased attenuation of the right cardiophrenic angle. When compared with prior CT of the abdomen and pelvis this may be related to prominent epicardial fat. Lungs otherwise clear. Upper normal size cardiac silhouette. Electronically signed by: Cookie Hearn MD 08/06/2025 08:59 AM EST RP Dictated By: Cookie Heanr MD Signed By: <Electronically signed by Cookie Hearn MD in OV> 08/06/25 0859 DD/ 0843 TD/TT: 08/06/25 0850 Director Of Global Marketing: LAURA Procedure Note Donotuseinterpreter, Image - 08/06/2025 [place] [id number] [place] [address] XRay Report Signed Patient: Ariella DorseyMR#: [id number] 6 : 7Acct:[id number] Age/Sex: 79 / FADM Date: 08/06/25 Loc: HO.ED Attending Dr: Ordering Physician: Generic ED Physician Date of Service: 08/06/25 Procedure(s): XR chest 2V Accession Number(s): [id number] cc: Generic ED Physician; Edilma Norwood DO Reason for Exam: cough sopb EXAMINATION: XR CHEST CLINICAL INFORMATION: cough sopb COMPARISON: Previous chest x-ray August 2024 CT of the abdomen and pelvis August 2024 TECHNIQUE: 2 views of the chest were obtained. FINDINGS: Increased attenuation at the right cardiophrenic angle. When compared with prior CT this may represent prominent epicardial fat. Lungs are otherwise clear. No pleural effusion or pneumothorax. Upper normal size cardiac silhouette. Hilar and mediastinal contours are unremarkable. Mild degenerative changes of the spine and scoliosis. Degenerative changes at the shoulders. XR/XR chest 2V IMPRESSION: Increased attenuation of the right cardiophrenic angle. When compared with prior CT of the abdomen and pelvis this may be related to prominent epicardial fat. Lungs otherwise clear. Upper normal size cardiac silhouette. Electronically signed by: Cookie Hearn MD 08/06/2025 08:59 AM EST Dictated By: Cookie Hearn MD Signed By: <Electronically signed by Cookie Hearn MD in OV> 08/06/25 0859 DD/ 0843 TD/TT: 08/06/25 0850 Director Of Global Marketing: LAURA [facility] External Provider IMG XR PROCEDURES Edited Result - Final * High Sensitivity Troponin I (08/06/2025 8:38 AM EST) TROPONIN I HIGH SENSITIVITY <2.7 <3.5 - 17.0 ng/L [facility] Comment:The [place]iles high sens itivity Troponin-I results should beused in conjunction with other diagnostic information suchas ECG, clinical observations and information, and patientsymptoms to aid in the diagnosis of OR. 08/06/2025 8:38 AM EST 08/06/2025 8:42 AM EST Generic External Data Provider LAB BLOOD ORDERAB LES Final Result Performing Organization Address [facility]/ZIP Co de Phone Number [facility] [address] [place] [phone] * SARS-CoV-2 RNA, Influenza A/B, and RSV RNA, Ql NAAT (08/06/2025 8:38 AM EST) Influenza A PCR NEGATIVE Negative [facility] Influenza B PCR NEGATIVE Negative [facility] Resp Syncy Virus RNA Qual PCR NEGATIVE Negative [facility] SARS COV2 PCR NEGATIVE Negative [facility] Comment:All test results mus t be correlated with clinical findings.Negative results do not preclude SARS-CoV2, influenza Avirus, influenza B virus and/or RSV infectionand should not be used as the sole basis for treatment orother patient management decisions. Negative results must becombined with clinical observations, patient history, andepidemiological information.This test has not been evaluated for monitoring treatment ofinfection.This test has been authorized by the FDA under an EmergencyUse Authorization (EUA) for use by authorized laboratories.Testing performed on the [employer] GeneXpert utilizingreal-time RT-PCR.All SARS CoV2 and positive influenza A/B results arereported to [facility]. 08/06/2025 8:38 AM EST 08/06/2025 8:42 AM EST us Generic External Data Provider LAB MICROBIOLOGY - GENERAL ORDERABLES Final Result Performing Organization Address [facility] Co de Phone Number [facility] [address] [place] [phone] * NT-proBNP (08/06/2025 8:38 AM EST) NT-proBNP 245.9 <300 pg/mL [facility] Comment:Reference Range:Age Group (years) NT-proBNP (pg/ml) InterpretationAll <300 Negative: HF unlikelyFor patients presenting to the ED with clinical suspicion ofnew onset or worsening HF, see below:18 to <50 >299.9 to <450.0 Grayzone: [id number] to 75 >299.9 to <900.0 other causes of>75 >299.9 to <1800.0 NT-proBNP [id number] to <50 >449.9 Positive: HF [id number] >899.9>75 >1799.9Note: Elevated NT-proBNP levels should be interpreted inthe context of other clinical information. 08/06/2025 8:38 AM EST 08/06/2025 8:42 AM EST us Generic External Data Provider LAB BLOOD ORDERAB LES Final Result [facility] [address] [place] [phone] * (ABNORMAL) CBC auto differential (08/06/2025 8:38 AM EST) White Blood Count 11.3(H) 4.8 - 10.8 X10*3/uL [facility] Red Blood Count 3.70(L) 4.20 - 5.50 X10*6/uL [facility] Hemoglobin 8.5(L) 12.0 - 16.0 g/dl [facility] Hematocrit 27.8(L) 37.0 - 47.0 % [facility] Mean Corpuscular Volume 75.1(L) 80.0 - 98.0 fL [facility] Mean Corpuscular Hemoglobin 23.0(L) 27.0 - 33.0 pg [facility] Mean Corpuscular HGB Conc 30.6(L) 31.0 - 35.0 g/dl [facility] Red Cell Distribution Width 18.0(H) 11.0 - 16.0 % [facility] Platelet Count 370 160 - 400 X10*3/uL [facility] Mean Platelet Volume 8.8(L) 9.4 - 12.3 fL [facility] Neutrophils Percent Auto 74.1(H) 45 - 73 % [facility] Imm Gran Pct Auto 0.7(H) 0.0 - 0.4 % [facility] Lymphocytes Percent Auto 17.6(L) 20 - 40 % [facility] Monocytes Percent Auto 6.6 2 - 11 % [facility] Eosinophils Percent Auto 0.5 0 - 4 % [facility] Basophils Percent Auto 0.5 0 - 2 % [facility] NRBC Pct Auto 0.0 0.0 - 0.2 /100WBC [facility] Neutrophils Absolute Auto 8.3 2.0 - 8.3 x10*3/uL [facility] Imm Gran Abs Auto 0.08(H) 0.00 - 0.03 X10*3/uL [facility] [facility] Lymphocytes Absolute Auto 2.0 1.2 - 4.9 X10*3/uL [facility] Monocytes Absolute Auto 0.8 0.1 - 1.2 X10*3/uL [facility] Eosinophils Absolute Auto 0.1 0.0 - 0.4 X10*3/uL [facility] Basophils Absolute Auto 0.1 0.0 - 0.2 X10*3/uL [facility] NRBC Abs Auto 0.000 0.0 - 0.012 X10*3/uL [facility] 08/06/2025 8:38 AM EST 08/06/2025 8:42 AM EST us Generic External Data Provider LAB BLOOD ORDERAB LES Final Result [facility] [address] [place] [phone] * (ABNORMAL) Comprehensive Metabolic Panel (08/06/2025 8:38 AM EST) Sodium 144 135 - 145 mmol/L [facility] Potassium 4.5 3.3 - 5.1 mmol/L [facility] Chloride 109(H) 96 - 108 mmol/L [facility] Carbon Dioxide 27 22 - 29 mmol/L [facility] Anion Gap 13 12 - 20 [facility] Urea Nitrogen (BUN) 13 9 - 16 mg/dL [facility] Creatinine, Serum 0.82 0.5 - 1.4 mg/dL [facility] Creatinine Clr Calc Pharmacy 43.0 [facility] Comment:Provided height and weight: 144.78 cm,62.6 kg.eGFR (calculated from the MDRD study equation) and eCrCl(calculated from the Cockcroft-Gault equation) are based ondifferent parameters and may not yield comparable results.If eCrCl result is absurd, please check patient'sheight/weight. Estimated Glomerular Filt Rate >60 [facility] Comment:Chronic Kidney Disea se: Estimated GFR < 60 mL/min/1.58o1Fajacj Kidney Disease: Estimated GFR < 15 mL/min/1.73m2 Glucose 131(H) 60 - 115 mg/dL [facility] Calcium 9.0 8.4 - 10.2 mg/dL [facility] Bilirubin, Total 0.1 0.0 - 1.0 mg/dL [facility] Aspartate Amino Transferase 18 5 - 31 U/L [facility] Alanine Aminotransferase 11 0 - 31 U/L [facility] Total Protein 6.9 6.5 - 8.0 g/dL [facility] Albumin Level 3.9 3.5 - 5.0 g/dL [facility] Alkaline Phosphatase 112 39 - 117 U/L [facility] 08/06/2025 8:38 AM EST 08/06/2025 8:42 AM EST us Generic External Data Provider LAB BLOOD ORDERAB LES Final Result [facility] [address] [place] [phone] * (ABNORMAL) POCT Hgb A1c (06/06/2025 11:48 AM EDT) Hemoglobin A1C 7.1(A) 4.0 - 5.7 % QC Media Lot # [id number] Lot# Expiration Date Blood 06/06/2025 11:4 8 AM EDT Edilma Norwood DO POINT OF CARE TEST ENTER/DEBBI T ORDERABLES Final Result * (ABNORMAL) POCT Glucose (06/06/2025 11:47 AM EDT) Pathologist [facility] Glucose Blood, POC 222(A) 60 - 200 mg/dL QC Media Lot # [id number] Lot# Expiration Date Blood Capillary blood specimen / Unknown 06/06/2025 11:47 AM EDT Edilma Norwood DO POINT OF CARE TEST ENTER/DEBBI T ORDERABLES Final Result * Albumin, Random Urine W/Creatinine (04/27/2024 9:42 AM EDT) [facility] Creatinine, Urine 28.57 mg/dL [facility] Microalbumin Urine 7.0 mg/L [facility] Microalbum Creatinine Ratio Ur 24.5 <30 ug/mg cr [facility] Comment:Albumin/Creatinine R atio Reference Ranges: Normal: < 30 ug/mg creatinine Microalbuminuria: 30 - 300 ug/mg creatinineClinical Albuminuria: > 300 ug/mg creatinine Urine (Urine, Random) 04/27/2024 9:42 AM EDT 04/27/2024 1:19 PM EDT Edilma Norwood DO LAB URINE ORDERABLES Final R esult [facility] [address] [place] [phone] * (ABNORMAL) Hepatitis C Antibody with Reflex to HCV, RNA, Quantitative, Real- Time PCR (04/27/2024 9:35 AM EDT) Hepatitis C Antibody Reactive( A) Nonreactive [facility] Comment:Presumptive evidence of antibodies to HCV. Blood Venous blood specimen / Unknown 04/27/2024 9:35 AM EDT 04/27/2024 11:45 AM EDT Edilma Norwood DO LAB BLOOD ORDERABLES Final R esult Performing Organization Address City/[facility] Co de Phone Number [facility] [address] [place] [phone] * (ABNORMAL) Lipid Panel, Standard (04/27/2024 9:35 AM EDT) Triglycerides 190(H) <150 mg/dL [facility] Comment:Desirable Triglyceri de: less than 150 mg/dLBorderline High Triglyceride 150-199 mg/dLHigh Triglyceride: 200-499 mg/dLVery High Triglyceride: greater than or equal to 5OO mg/dL Cholesterol 159 <200 mg/dL [facility] Comment:Desirable Cholestero l: less than 200 mg/dLBorderline High Cholesterol: 200-239 mg/dLHigh Cholesterol: greater than 239 mg/dL LDL Cholesterol Calculated 72 <100 mg/dL [facility] Comment:Desirable LDL: less than 100 mg/dLNear Optimal/Above Optimal LDL: 110- 129 mg/dLBorderline High LDL: 130-159 mg/dLHigh LDL: 160-189 mg/dLVery High LDL: greater than or equal to 190 mg/dL HDL Cholesterol 49 >40 mg/dL [facility] Comment:Desirable HDL: great er than 40 mg/dL Note: This HDL assay may give artificially low results in patients with liver disease. Blood Venous blood specimen / Unknown 04/27/2024 9:35 AM EDT 04/27/2024 12:03 PM EDT us Edilma Norwood DO LAB BLOOD ORDERABLES Final R esult Performing Organization Address City/[facility]/ZIP Co de Phone Number [facility] [address] [place] [phone] from Last 3 Months or Most Recently Relevant to Health Maintenance Insurance [employer] (O D-SNP) [employer]IG[employer] DIETZ [id number] Care Teams Senior Sales Operations Analyst Relationship Specialty Start Date End Date Edilma Norwood DO [address] [place] [address] PCP - General Family Medicine 12/14/11
--- OUTSIDE RECORDS SUMMARY | 2025-08-06 10:49 | XMS_ITS | Encounter Summary ---
Author Organization [employer] Address [address] [facility] 7t [place] [address] Care Team Providers Care Teacher Of The Emotionally Disturbed Name Role Phone Edilma Norwood DO Primary Care Provider + [phone] Reason for Visit * Reason Onset Date Comments Nurse Triage 05/14/2025 Encounter Details Date Type Department Care Team (Late st Contact Info) Description 05/14/[address] [facility] MEDICINE [address] [place] [address] Edilma Norwood DO [address] [place], [place] [phone] Nurse Triage Social History Tobacco Use Types Packs/Day Years Used Date Smoking Tobacco: Every Day Cigarettes Passive Smoke Exposure: Current Smokeless Tobacco: Never Alcohol Use Standard Drinks/Week Comments Never 0 (1 standard drink = 0.6 oz pur e alcohol) Depression Answer Date Recorded Patient Health Questionnaire-9 Score 0 10/18/2023 Patient Health Questionnaire-9 Score 0 10/18/2023 Last PHQ-9: Questionnaire Data Not on file 0 10/18/2023 Housing Stability Answer Date Recorded What is your housing situation today? I have мария sanford 11/30/[address] you li ve. Do you have problems with any of the following? None of the above 11/30/2023 Food Insecurity Answer Date Recorded Within the past 12 months, y ou worried that your food would run out before you got money to buy more: Never True 11/30/2023 Within the past 12 months,th e food you bought just didn't last and you didn't have enough money to get more: Never True Transportation Answer Date Recorded In the past 12 months, has l ack of transportation kept you from medical appts, meetings, work or from getting things needed for daily living? No 11/30/2023 Utilities Answer Date Recorded In the past 12 months, has t he electric, gas, oil or water company threatened to shut off services in your home? No 11/30/2023 Depression Answer Date Recorded Patient Health Questionnaire-2 Score 0 11/21/2024 Comments No Sex and Gender Information Value Date Recorded Sex Assigned at Female 07/06/2022 10:14 AM EDT Legal Sex Female 10:14 AM EDT Gender Identity Female 07/06/2022 10:14 AM EDT Sexual Orientation Straight 07/06/2022 10 :14 AM EDT documented as of this encounter Miscellaneous Notes * Telephone Encounter - Vidhya Burns - 05/14/2025 10:29 AM EDT Tc from pt stating she has trouble swallowing Please contact pt at [phone] No printing plate maker needed documented in this encounter Plan of Treatment Upcoming Encounters Date Type Department Care Team (Late st Contact Info) Description 09/27/2025 2:00 PM EST Office Visit [facility] OPTOMETRY [address] [place] [address] Demi Arias, OD [address] [place] [address] documented as of this encounter Goals Goal Patient Goal Type Associated Problems Recent Progress Patient-Stated? Author Hemoglobin A1c < 7.5 Result Component 7.1(06/06/20 11:48 AM EDT) No Jakob Liz, Yousuf Note: Age, comorbidities documented as of this encounter Visit Diagnoses Not on filedocumented in this encounter Additional Health Concerns Assessment Noted Time PHQ-9 Depression Total Score: 0 10/18/19 24 9:20 AM EST documented as of this encounter Care Teams Teacher Of The Emotionally Disturbed Relationship Specialty Start Date End Date Edilma Norwood DO [address] [place] [phone] PCP - General Family Medicine 12/14/11 documented as of this encounter
--- OUTSIDE RECORDS SUMMARY | 2025-08-06 10:49 | XMS_ITS | Encounter Summary ---
Author Organization [employer] Address [address] [place] [address] [address] [place] [address] Care Team Providers Care Lead Cook Name Role Phone Edilma Norwood DO Primary Care Provider + [phone] Reason for Visit * Reason Comments Med Refill Encounter Details Date Type Department Care Team (Late Contact Info) Description 05/12/2023 Refill [facility] MEDICINE [address] [place] [address] Veena Tinsley MD [address] [place] [address] Chronic bilateral low back pain, unspecified whether sciatica present Social History Tobacco Use Types Packs/Day Years Used Date Smoking Tobacco: Every Day Cigarettes Passive Smoke Exposure: Current Smokeless Tobacco: Never Depression Answer Date Recorded Patient Health Questionnaire-9 Score 0 11/23/2022 Depression Answer Date Recorded Patient Health Questionnaire-2 Score 0 11/23/2022 Comments Unknown Sex and Gender Information Value Date Recorded Sex Assigned at Female 07/06/2022 10:14 AM EDT Legal Sex Female 10:14 AM EDT Gender Identity Female 07/06/2022 10:14 AM EDT Sexual Orientation Straight 07/06/2022 10 :14 AM EDT documented as of this encounter Plan of Treatment Upcoming Encounters Date Type Department Care Team (Late Contact Info) Description 09/27/2025 2:00 PM EST Office Visit [facility] OPTOMETRY [address] [place] [address] Demi Arias OD [address] [place] [address] documented as of this encounter Goals Goal Patient Goal Type Associated Problems Recent Progress Patient-Stated? Author Hemoglobin A1c < 7.5 Result Component 7.1(06/06/20 25 11:48 AM EDT) No Jakob Liz, PharmD Note: Age, comorbidities documented as of this encounter Visit Diagnoses Diagnosis Chronic bilateral low back pain, unspecified whether sciatica present documented in this encounter Additional Health Concerns Assessment Noted Time PHQ-9 Depression Total Score: 0 11/24/19 23 9:08 AM EDT documented as of this encounter Care Teams Lead Cook Relationship Specialty Start Date End Date Edilma Norwood DO [address] [place] [address] PCP - General Family Medicine 12/14/11 documented as of this encounter
--- OUTSIDE RECORDS SUMMARY | 2025-08-06 10:49 | XMS_ITS | Encounter Summary ---
Author Organization [employer] Address [address] [facility] 7t [place] [address] Care Team Providers Care Chartered Financial Analyst Name Role Phone MaribelEdilma garza DO Primary Care Provider + [phone] Encounter Details Date Type Department Care Team ([facility] st Contact Info) Description 08/06/2025 Orders Only [facility] External Provider, [facility] Social History Tobacco Use Types Packs/Day Years [...] Description 09/27/2025 2:00 PM EST Office Visit [facility] OPTOMETRY [address] [place], [place] [phone] Hugo, Demi, OD [address] [place] [address] documented as of this encounter Goals Goal Patient Goal Type Associated Problems Recent Progress Patient-Stated? Author Hemoglobin A1c < 7.5 Result Component 7.1(06/06/20 11:48 AM EDT) No Jakob Liz, PharmD Note: Age, comorbidities documented as of this encounter Procedures Procedure Name Priority Date/Time Associated Diagnosis Comments XR CHEST 2 VIEWS Routine 08/06/2025 8:43 AM EST HIGH SENSITIVITY TROPONIN I Routine 08/06/2025 8:38 AM EST SARS COV2/INFLUENZA A/B AND RSV RNA QL NAAT Routine 08/06/2025 8:38 AM EST NT-PROBNP Routine 08/06/2025 8:38 AM EST documented in this encounter Results * XR Chest 2 Views (08/06/2025 8:43 AM EST) Anatomical Region Laterality Modality Chest Radiographic Day ging 08/06/2025 8:43 AM EST Narrative 08/06/2025 9:02 AM EST [address] [address] XRay Report Signed Patient: Ariella Dorsey MR#: [id number] 6 : 1945 Acct:[id number] Age/Sex: 79 / F ADM Date: 08/06/25 Loc: HO.ED Attending Dr: Ordering Physician: Generic ED Physician Date of Service: 08/06/25 Procedure(s): XR chest 2V Accession Number(s): [id number] cc: Generic ED Physician; Edilma Norwood DO [...] 08/06/25 0859 DD/ 0843 TD/TT: 08/06/25 0850 Information Systems Project Manager: LAURA Procedure Note Donotuseinterpreter, Image - 08/06/[address] [address] XRay Report Signed Patient: Ariella DorseyMR#: [id number] 6 : 1945cct:[id number] Age/Sex: 79 / FADM Date: 08/06/25 Loc: HO.ED Attending Dr: Ordering Physician: Generic ED Physician Date of Service: 08/06/25 Procedure(s): XR chest 2V Accession Number(s): [id number] cc: Generic ED Physician; Edilma Norwood DO [...] 08/06/25 0859 DD/ 0843 TD/TT: 08/06/25 0850 Information Systems Project Manager: LAURA [facility] External Provider IMG XR PROCEDURES Edited Result - Final * SARS-CoV-2 RNA, Influenza A/B, and RSV RNA, Ql NAAT (08/06/2025 8:38 AM EST) Influenza A PCR NEGATIVE Negative [facility] Influenza B PCR NEGATIVE Negative [facility] Resp Syncy Virus RNA Qual PCR NEGATIVE Negative [facility] SARS COV2 PCR NEGATIVE Negative [facility] Comment:All test results mus [...] use by authorized laboratories.Testing performed on the [employer] GeneXpert utilizingreal-time RT-PCR.All SARS CoV2 and positive influenza A/B results arereported to [facility]. 08/06/2025 8:38 AM EST 08/06/2025 8:42 AM EST Generic External Data Provider LAB MICROBIOLOGY - GENERAL ORDERABLES Final Result Performing Organization Address [facility] de Phone Number [facility] [address] [place] [phone] * High Sensitivity Troponin I (08/06/2025 8:38 AM EST) Pathologist [facility] TROPONIN I HIGH SENSITIVITY <2.7 <3.5 - 17.0 ng/L [facility] Comment:The Giles high sens itivity Troponin-I results should beused in conjunction with other diagnostic information suchas ECG, clinical observations and information, and patientsymptoms to aid in the diagnosis of [place]. 08/06/2025 8:38 AM EST 08/06/2025 8:42 AM EST Generic External Data Provider LAB BLOOD ORDERAB LES Final Result Performing Organization Address [facility] de Phone Number [facility] [address] [place] [phone] * NT-proBNP (08/06/2025 8:38 AM EST) Pathologist [facility] NT-proBNP 245.9 <300 pg/mL [facility] Comment:Reference Range:Age Group (years) NT-proBNP (pg/ml) InterpretationAll <300 Negative: HF unlikelyFor patients presenting to the ED with clinical suspicion ofnew onset or worsening HF, see below:18 to <50 >299.9 to <450.0 Grayzone: [id number] to 75 >299.9 to <900.0 other causes of>75 >299.9 to <1800.0 NT-proBNP toifflaeb10 to <50 >449.9 Positive: HF puspfp40-56 >899.9>75 >1799.9Note: Elevated NT-proBNP levels should be interpreted inthe context of other clinical information. 08/06/2025 8:38 AM EST 08/06/2025 8:42 AM EST us Generic External Data Provider LAB BLOOD ORDERAB LES Final Result [facility] [address] [place] [address] [phone] documented in this encounter Visit Diagnoses Not on filedocumented in this encounter Additional Health Concerns Assessment Noted Time PHQ-9 Depression Total Score: 13 025 11:46 AM EDT documented as of this encounter Care Teams Chartered Financial Analyst Relationship Specialty Start Date End Date Edilma Norwood DO [address] [place] [phone] PCP - General Family Medicine 12/14/11 documented as of this encounter
--- OUTSIDE RECORDS SUMMARY | 2025-08-06 10:49 | XMS_ITS | Encounter Summary ---
Author Organization [employer] Address [address] [facility] 7t [place] [address] Care Team Providers Care Television News Reporter Name Role Phone Edilma Norwood DO Primary Care Provider + [phone] Reason for Visit * Reason Comments Med Refill Encounter Details Date Type Department Care Team (Late st Contact Info) Description 04/05/2024 Refill [facility] MEDICINE [address] [place] [address] Edilma Norwood DO [address] [place], [place] [phone] Other muscle spasm Social History Tobacco Use Types Packs/Day Years [...] Date Recorded Patient Health Questionnaire-2 Score 0 10/18/2023 Comments Unknown Sex and Gender Information Value [...] Description 09/27/2025 2:00 PM EST Office Visit [facility] OPTOMETRY [address] [place], [place] [phone] HugoDemi valencia, OD [address] [place] [address] documented as of this encounter Goals Goal Patient Goal Type Associated Problems Recent Progress Patient-Stated? Author Hemoglobin A1c < 7.5 Result Component 7.1(06/06/20 11:48 AM EDT) No Jakob Liz, JacqueD Note: Age, comorbidities documented as of this encounter Visit Diagnoses Diagnosis Other muscle spasm documented in this encounter Additional Health Concerns Assessment Noted Time PHQ-9 Depression Total Score: 0 10/18/19 24 9:20 AM EST documented as of this encounter Care Teams Television News Reporter Relationship Specialty Start Date End Date Edilma Norwood DO [address] [place], [place] [phone] PCP - General Family Medicine 12/14/11 documented as of this encounter
--- OUTSIDE RECORDS SUMMARY | 2025-08-06 10:49 | XMS_ITS | Encounter Summary ---
Author Organization [employer] Address [address] [place] [address] [address] [place] [address] Care Team Providers Care Safe Expert Name Role Phone Edilma Norwood DO Primary Care Provider [phone] Jakob Liz PharmD Unavailable Unavail able Reason for Visit * Reason Comments Med Refill Encounter Details Date Type Department Care Team (Late Contact Info) Description 02/02/2023 Refill [facility] MED & PEDS [address] [place] [address] Edilma Norwood DO [address] [place], [place] [phone] Chronic neck pain Social History Tobacco Use Types Packs/Day Years [...] Upcoming Encounters Date Type Department Care Team ([facility] Contact Info) Description 09/27/2025 2:00 PM EST Office Visit [facility] OPTOMETRY [address] [place] [address] Demi Arias, OD [address] [place] [address] documented as of this encounter Goals Goal Patient Goal Type Associated Problems Recent Progress Patient-Stated? Author Hemoglobin A1c < 7.5 Result Component 7.1(06/06/20 11:48 AM EDT) No Jakob Liz, Yousuf Note: Age, comorbidities documented as of this encounter Visit Diagnoses Diagnosis Chronic neck pain Cervicalgia documented in this encounter Additional Health Concerns Assessment Noted Time PHQ-9 Depression Total Score: 0 11/24/19 23 9:08 AM EDT documented as of this encounter Care Teams Safe Expert Relationship Specialty Start Date End Date Edilma Norwood DO [address] [place] [address] PCP - General Family Medicine 12/14/11 Jakob Liz, PharmD [address] [place] [phone] Pharmacist Internal Medicine 10/05/22 02/07/23 documented as of this encounter
--- OUTSIDE RECORDS SUMMARY | 2025-08-06 10:49 | XMS_ITS | Encounter Summary ---
Author Organization [employer] Address [address] [facility] [address]t [place] [address] Care Team Providers Care Chartered Financial Analyst Name Role Phone Edilma Norwood DO Primary Care Provider + [phone] Reason for Visit * Reason Comments Med Refill Encounter Details Date Type Department Care Team (Late st Contact Info) Description 06/27/2023 Refill [facility] MEDICINE [address] [place] [address] Edilma Norwood DO [address] [place], [place] [phone] Social History Tobacco Use Types Packs/Day Years Used Date Smoking Tobacco: Every Day Cigarettes Passive Smoke Exposure: Current Smokeless Tobacco: Never Depression Answer Date Recorded Patient Health Questionnaire-9 Score 0 11/23/2022 Housing Stability Answer Date Recorded What is your housing situation today? I have мария sanford 06/26/[address] you li ve. Do you have problems with any of the following? None of the above 06/26/2023 Food Insecurity Answer Date Recorded Within the past 12 months, y ou worried that your food would run out before you got money to buy more: Never True 06/26/2023 Within the past 12 months,th e food you bought just didn't last and you didn't have enough money to get more: Never True Transportation Answer Date Recorded In the past 12 months, has l ack of transportation kept you from medical appts, meetings, work or from getting things needed for daily living? No 06/26/2023 Utilities Answer Date Recorded In the past 12 months, has t he electric, gas, oil or water company threatened to shut off services in your home? No 06/26/2023 Depression Answer Date Recorded Patient Health Questionnaire-2 [...] 2:00 PM EST Office Visit [facility] OPTOMETRY [address] [place], [place] [phone] Demi Arias, OD [address] [place], [place] [phone] documented as of this encounter Goals Goal [...] Date End Date Edilma Norwood DO [address] [place] [address] PCP - General Family Medicine 12/14/11 documented as of this encounter
--- OUTSIDE RECORDS SUMMARY | 2025-08-06 10:49 | XMS_ITS | Encounter Summary ---
Author Organization [employer] Address [address] [facility] [address]t [place] [address] Care Team Providers Care Outpatient Coding Specialist Name Role Phone Edilma Norwood DO Primary Care Provider + [phone] Reason for Visit * Reason Onset Date Comments Nurse Triage 08/11/2023 Encounter Details Date Type Department Care Team (Late st Contact Info) Description 08/11/2023 Telephone [facility] MEDICINE [address] [place] [address] Edilma Norwood DO [address] [place], [place] [phone] Nurse Triage Social History Tobacco Use Types [...] encounter Miscellaneous Notes * Telephone Encounter - Abimbola Avila LPN - 08/11/2023 11:27 AM EST Attempts to reach patient unsuccessful. Voice mails left for patient to return call to [phone]. * Telephone Encounter - Anne Dow - 08/11/2023 9:38 AM EST Symptom: Chest Pain - Adult Outcome: Schedule an urgent appointment (within 1 hour) or talk to a nurse or provider soon Reason: Caller denied all higher acuity questions The caller accepted this outcome Please contact pt at [phone] documented in this encounter Plan of Treatment Upcoming Encounters Date Type Department Care Team (Late st Contact Info) Description 09/27/2025 2:00 PM EST Office Visit [facility] OPTOMETRY [address] [place] [address] Hugo, Demi, OD [address] [place] [address] documented as of this encounter Goals Goal [...] documented as of this encounter Care Teams Outpatient Coding Specialist Relationship Specialty Start Date End Date Edilma Norwood DO [address] [place] [address] PCP - General Family Medicine 12/14/11 documented as of this encounter
--- OUTSIDE RECORDS SUMMARY | 2025-08-06 10:49 | XMS_ITS | Encounter Summary ---
Author Organization [employer] Address [address] [place] [address] [address] [place] [address] Care Team Providers Care Scullion Chief Name Role Phone Edilma Norwood DO Primary Care Provider + [phone] Jakob Liz PharmD Unavailable Unavail able Reason for Visit * Reason Comments Med Refill Encounter Details Date Type Department Care Team (Late st Contact Info) Description 12/23/2022 Refill [facility] [address] [place] [address] Edilma Norwood DO [address] [place], [place] [phone] Social History Tobacco Use Types Packs/Day Years [...] suspected to have Coronavirus/COVID-19? No / Unsure 12/14/2022 2:17 PM EDT documented as of this encounter Plan of Treatment Upcoming Encounters Date Type Department Care Team (Late st Contact Info) Description 09/27/2025 2:00 PM EST Office Visit [facility] [address] [place] [address] Demi Arias OD [address] [place] [address] documented as of this encounter Goals Goal [...] documented as of this encounter Care Teams Scullion Chief Relationship Specialty Start Date End Date Edilma Norwood DO [address] [place] [address] PCP - General Family Medicine 12/14/11 Jakob Liz, PharmD [address] [place] [address] Pharmacist Internal Medicine 10/05/22 02/07/23 documented as of this encounter
--- OUTSIDE RECORDS SUMMARY | 2025-08-06 10:49 | XMS_ITS | Encounter Summary ---
Author Organization [employer] Address [address] [facility] 7t [place] [address] Care Team Providers Care Brine Room Laborer Name Role Phone Edilma Norwood DO Primary Care Provider + [phone] Reason for Visit * Reason Comments Med Refill Encounter Details Date Type Department Care Team (Late st Contact Info) Description 01/24/2024 Refill [facility] [address] [place] [address] Edilma Norwood DO [address] [place], [place] [phone] Social History Tobacco Use Types Packs/Day Years [...] Description 09/27/2025 2:00 PM EST Office Visit [facility] OPTOMETRY [address] [place], [place] [phone] HugoDemi valencia, OD [address] [place] [address] documented as of this encounter Goals Goal [...] documented as of this encounter Care Teams Brine Room Laborer Relationship Specialty Start Date End Date Edilma Norwood DO [address] [place], [place] [phone] PCP - General Family Medicine 12/14/11 documented as of this encounter
--- OUTSIDE RECORDS SUMMARY | 2025-08-06 10:49 | XMS_ITS | Encounter Summary ---
Author Organization [employer] Address [address] [place] [address] Care Team Providers Care Electric Meter Reader Name Role Phone Edilma Norwood DO Primary Care Provider + [phone] Reason for Visit * Reason Comments Med Refill Encounter Details Date Type Department Care Team (Late st Contact Info) Description 06/04/2024 Refill [facility] [address] [place] [address] Edilma Norwood DO [address] [place], [place] [phone] Social History Tobacco Use Types Packs/Day Years [...] Description 09/27/2025 2:00 PM EST Office Visit [facility] [address] [place], [place] [phone] HugoDemi valencia, OD [address] [place] [address] documented as of this encounter Goals Goal [...] documented as of this encounter Care Teams Electric Meter Reader Relationship Specialty Start Date End Date Edilma Norwood DO [address] [place], [place] [phone] PCP - General Family Medicine 12/14/11 documented as of this encounter
[2025-08-06 10:55] LABS: Magnesium 1.2 mg/dL (1.6-2.6)
[2025-08-06] MEDS: Magnesium Sulfate/H2O 2 GM/50 ML PIGGYBACK IV (11:41)
--- NOTE | 2025-08-06 12:05 | PC.NURSE ---
pt found resting at 82% O2 RA, placed on 2L via NC and RODRIGUEZ mcmahon notified. Pt up to 90% with oxygen.
[2025-08-06 12:16] LABS: D Dimer High Sensitivity 339 NG/ML
[2025-08-06] MEDS: iohexoL 350 MG/ML 100 ML INFUS..BTL IV (13:02)
--- NOTE | 2025-08-06 13:59 | HO.NURTONUR ---
Pt comes from home w/ c/o chills, increasing WILSON, and cough w/ production of yellow/green sputum x 5 days. Pt arrived to ED was able to speak in complete sentences but had scattered wheezing t/o. Pt tx'd w/ neb tx and seble. well. Pt also noted to have episode of hypoxia on RA sats 85% and pt ultimately placed on O2 @ 2L via NC and sats remain 98%. CT and U/S of LE neg for PE/DVT. Pt noted to have LLL pna on CTA. Pt is A&O x 4 at baseline and ambulates w/ a cane
[2025-08-06 14:46] LABS: Venous Blood Gas Refer to POC result
[2025-08-06 14:46] LABS: VBG HCO3 25 mmol/L (22-26); VBG O2 % Saturation 83.0 %
--- NOTE | 2025-08-06 15:51 | PM.IMHP ---
History of Present Illness Date of Service: 08/06/25 Chief Complaint: Cough and sob 71-year-old woman with a history of COPD presented to the ER with the concerns of cough for 5 days with chills, eye redness and drainage. Patient reports a productive cough with yellow and green colored sputum. She has been using her home inhalers without any relief. She reported shortness of breath with exertion. She denied fever, chills, nausea and vomiting. She had been using her inhalors with no relief. CXR showed LLL pneumonia and she likely also has COPD exacerbation. In the ED she was given IV solumedrol, IV antibiotics and placed on oxygen. She will be admitted for management of COPD and PNA. Review of Systems Review of Systems: Denies any recent fever chills or decrease in appetite respiratory see HPI cardiovascular see HPI gastrointestinal denies any dysphagia abdominal pain nausea vomiting or diarrhea genitourinary denies any dysuria frequency or hematuria musculoskeletal denies any joint pain or swelling neuropsych denies any weakness or seizures all other systems reviewed are negative [facility] Medical History (Updated 08/06/25 @ 16:04 by Lois Hawk NP) Hypertension Diabetes mellitus Depression Asthma COPD (chronic obstructive pulmonary disease) Family History Father Diabetes Myocardial infarction Mother Diabetes Brother Diabetes Sister Diabetes Heart problem Daughter Breast cancer Heart problem Paternal Uncle Colon cancer Son Liver cancer Surgical History Hx of colonoscopy Social History (Updated 10/24/20 @ 13:45 by PIPE Rao) Alcohol intake: current Alcohol intake frequency: does not drink Cigarettes Per Day: 20 Advance Directives: No Advance Directives Information Provided: Yes Meds Allergies Allergy/AdvReac Type Severity Reaction Status Date / Time No Known Allergies Allergy Verified 08/06/25 08:27 Active Medications: Current Medications Acetaminophen (Acetaminophen 325 Mg Tablet) 650 mg PO Q6H PRN PRN Reason: Pain, Mild 1-3,fever,headache Calcium Carbonate (Calcium Carbonate 750 Mg Tab.Chew) 750 mg PO Q4H PRN PRN Reason: Heartburn Heparin Sodium (Porcine) (Heparin Sodium,Porcine 5,000 Unit/Ml Vial) 5,000 unit SUBCUT Q12H [facility] Ceftriaxone Sodium 1 gm/ (Sodium Chloride) 50 mls @ 100 mls/hr IV Q24H [facility] Azithromycin 500 mg/ Sodium (Chloride) 250 mls @ 125 mls/hr IV Q24H [facility] Magnesium Hydroxide (Milk Of Magnesia 30 Ml Oral.Susp) 30 ml PO DAILY PRN PRN Reason: Constipation Melatonin (Melatonin 3 Mg Tablet) 6 mg PO BEDTIME PRN PRN Reason: Insomnia Sodium Chloride (0.9 % Sodium Chloride Flush 3 Ml Syringe) 3 ml IVFLUSH QSHIFT [facility] Home Medications ?Medication ?Instructions ?Recorded ?Confirmed ?Last Taken ?Type acetaminophen 650 mg 0 mg PO 10/24/20 Unknown History tablet,extended release aspirin 81 mg tablet,delayed 81 mg PO DAILY 10/24/20 Unknown History release atorvastatin 40 mg tablet 40 mg PO BEDTIME 10/24/20 Unknown History baclofen 10 mg tablet 10 mg PO BID 10/24/20 Unknown History calcium 600 mg (as 1 tab PO BID 10/24/20 Unknown History carbonate)-vitamin D3 10 mcg (400 unit) tablet cyanocobalamin (vitamin B-12) 1,000 mcg PO QAM 10/24/20 Unknown History 1,000 mcg tablet fluticasone propionate 220 1 puff inhalation BID 10/24/20 Unknown History mcg/actuation HFA aerosol inhaler gabapentin 300 mg capsule 600 mg PO 10/24/20 Unknown History glipizide 10 mg tablet 0 mg PO 10/24/20 Unknown History glucose 4 gram chewable tablet 800f16 g PO hypoglycemia 10/24/20 Unknown History insulin glargine 100 unit/mL (3 34 unit subcut DAILY 10/24/20 Unknown History mL) subcutaneous pen lisinopril 10 mg tablet 10 mg PO QAM 10/24/20 Unknown History metformin 500 mg tablet 0 mg PO 10/24/20 Unknown History omega-3 fatty acids-fish oil 340 1 cap PO BID 10/24/20 Unknown History mg-1,000 mg capsule sertraline 25 mg tablet 25 mg PO QAM 10/24/20 Unknown History simethicone 125 mg chewable tablet 125 mg PO QID PRN gas 10/24/20 Unknown History simvastatin 40 mg tablet 40 mg PO BEDTIME 10/24/20 Unknown History tramadol 50 mg tablet 50 mg PO Q6H PRN 10/24/20 Unknown History trazodone 50 mg tablet 50 mg PO BEDTIME 10/24/20 Unknown History Physical Exam Vital Signs and Narrative: Vital Signs: Last Vital Signs Temp 98.1 F 08/06/25 14:23 Pulse 87 08/06/25 14:23 Resp 22 H 08/06/25 14:23 BP 125/50 L 08/06/25 14:23 Pulse Ox 96 08/06/25 14:23 O2 Del Method Nasal Cannula 08/06/25 14:23 O2 Flow Rate 2 08/06/25 14:23 BMI result Body Mass Index 29.9 Appearing in no acute distress head is normocephalic atraumatic eyes pupils are PERRLA sclera is anicteric mouth throat mucous membranes are intact and moist neck is supple no lymphadenopathy, no JVD noted lung sounds exp wheezing heart regular rate rhythm, clear S1, S2 positive bowel sounds, abdomen is soft, nontender neuro patient is alert x3, no focal deficits Results Labs 08/06/25 08:38 08/06/25 08:38 Labs: Laboratory Results - last 24 hr 08/06/25 08/06/25 08/06/25 08:38 11:55 14:32 MCV 75.1 L MCH 23.0 L MCHC 30.6 L RDW 18.0 H Plt Count 370 MPV 8.8 L Immature Gran % (Auto) 0.7 H Neut % (Auto) 74.1 H Lymph % (Auto) 17.6 L [place] % (Auto) 6.6 Eos % (Auto) 0.5 Baso % (Auto) 0.5 Lymph # (Auto) 2.0 [place] # (Auto) 0.8 Eos # (Auto) 0.1 Baso # (Auto) 0.1 Abs Immat Gran (auto) 0.08 H Absolute Neuts (auto) 8.3 Absolute Nucleated RBC 0.000 Nucleated RBC % (auto) 0.0 D-Dimer High Sensitivty 339 VBG pH VBG pCO2 VBG pO2 VBG HCO3 VBG O2 Saturation VBG Base Excess Anion Gap 13 Estim Creat Clear Calc 43.0 Estimated GFR > 60 Random Glucose 131 H Lactic Acid 1.5 Calcium 9.0 Magnesium 1.2 L* Total Bilirubin 0.1 AST 18 ALT 11 Alkaline Phosphatase 112 Troponin I High Sens < 2.7 NT-Pro-B Natriuret Pep 245.9 Total Protein 6.9 Albumin 3.9 Influenza Type A (PCR) NEGATIVE Influenza Type B (PCR) NEGATIVE RSV RNA Qual (PCR) NEGATIVE SARS-CoV-2 RNA (RT-PCR) NEGATIVE 08/06/25 14:41 MCV MCH MCHC RDW Plt Count MPV Immature Gran % (Auto) Neut % (Auto) Lymph % (Auto) [place] % (Auto) Eos % (Auto) Baso % (Auto) Lymph # (Auto) [place] # (Auto) Eos # (Auto) Baso # (Auto) Abs Immat Gran (auto) Absolute Neuts (auto) Absolute Nucleated RBC Nucleated RBC % (auto) D-Dimer High Sensitivty VBG pH 7.35 VBG pCO2 45 VBG pO2 61 VBG HCO3 25 VBG O2 Saturation 83.0 VBG Base Excess -0.3 Anion Gap Estim Creat Clear Calc Estimated GFR Random Glucose Lactic Acid Calcium Magnesium Total Bilirubin AST ALT Alkaline Phosphatase Troponin I High Sens NT-Pro-B Natriuret Pep Total Protein Albumin Influenza Type A (PCR) Influenza Type B (PCR) RSV RNA Qual (PCR) SARS-CoV-2 RNA (RT-PCR) Imaging Radiologist's Impressions: Impressions Chest X-Ray 08/06/25 08:43 IMPRESSION: Increased attenuation of the right cardiophrenic angle. When compared with prior CT of the abdomen and pelvis this may be related to prominent epicardial fat. Lungs otherwise clear. Upper normal size cardiac silhouette. Electronically signed by: Cookie Hearn MD 08/06/2025 08:59 AM EST RP Venous Duplex 08/06/25 12:22 IMPRESSION: No evidence of deep venous thrombosis involving the bilateral lower extremities. Electronically signed by: Xu Gonzalez MD 08/06/2025 12:44 PM EST RP Chest CTA 08/06/25 12:56 IMPRESSION: No filling defects are identified in the pulmonary arteries to suggest pulmonary embolus. Peripheral vessels are poorly opacified due to contrast bolus timing. Left lower lobe pneumonia. Stable small pulmonary nodules require no further follow-up per Fleischner Society recommendations. Fleischner guidelines were followed. Electronically signed by: Reynaldo Cruz MD 08/06/2025 01:21 PM EST RP Assessment and Plan (1) Dysphagia: Status: Acute (2) COPD (chronic obstructive pulmonary disease): Status: Acute Plan 79 year old women admitted with Pneumonia and COPD exacerbation Community acquired Pneumonia IV rocephin and azithromycin Duonebs as needed Supplemental oxygen to keep oxygen saturation >91% Follow blood cx COPD exacerbation no hypoxia IV solumedrol scheduled duonebs Hypomagenesemia repleted recheck in the morning Diabetes mellitus 2 ss, ada diet Hypertension stable BP continue home medications Iron def anemia Stable HH low iron IV iron then oral iron GERD PPI HLD Statin DVT prophylaxis with heparin Full code Quality Stroke Does the patient have a stroke diagnosis?: No VTE Prior VTE?: No VTE Risk Level:: Medical - moderate - high VTE Device Contraindication: Treatment Not Indicated VTE Drug Contraindication: N/A - Med Ordered
[2025-08-06 16:22] LABS: Iron 18 mcg/dL (30-160); Percent Iron Saturation 6 % (15-50); Total Iron Binding Capacity 299 mcg/dL (228-428); Unsaturated Iron Binding 281 ug/dL
[2025-08-06] MEDS: 0.9 % Sodium Chloride Flush 3 ML SYRINGE IVFLUSH (20:57)
[2025-08-07] MEDS: guaiFENesin DM 100/10/5 ML 5 ML SYRUP PO ×2 (03:55→16:48)
[2025-08-07 03:58] VITALS: BP 136/58; PULSE 69; RESP 18; TEMP 36; O2SAT 98
[2025-08-07 06:24] LABS: Hematocrit 23.9 % (37.0-47.0); Hemoglobin 7.3 g/dl (12.0-16.0); Mean Corpuscular HGB Conc 30.5 g/dl (31.0-35.0); Mean Corpuscular Hemoglobin 22.5 pg (27.0-33.0); Mean Corpuscular Volume 73.5 fL (80.0-98.0); NRBC Abs Auto 0.000 X10*3/uL (0.0-0.012); NRBC Pct Auto 0.0 /100WBC (0.0-0.2); Platelet Count 373 X10*3/uL (160-400); Red Blood Count 3.25 X10*6/uL (4.20-5.50); White Blood Count 15.0 X10*3/uL (4.8-10.8)
[2025-08-07 06:42] LABS: Anion Gap 13 (12-20); Blood Urea Nitrogen 16 mg/dL (9-16); Calcium 8.6 mg/dL (8.4-10.2); Carbon Dioxide 24 mmol/L (22-29); Chloride 110 mmol/L (96-108); Creatinine Clr Calc Pharmacy 45.3; Estimated Glomerular Filt Rate > 60; Magnesium 1.8 mg/dL (1.6-2.6); Potassium 4.7 mmol/L (3.3-5.1); Sodium 142 mmol/L (135-145)
[2025-08-07 07:32] LABS: Glucose, Whole Blood 114 mg/dL (60-115)
[2025-08-07 07:46] VITALS: BP 125/58; PULSE 65; RESP 18; TEMP 36.3; O2SAT 96
--- NOTE | 2025-08-07 08:25 | PHA.MEDREC ---
Addendum entered by Martin Muro [facility] 08/07/25 09:27: Reviewed by [facility] Addendum entered by Juan Daniel Herman 08/07/25 09:20: Spoke with pt about Vitamin B-12 being QD or Q48H and pt confirmed she is taking it QD (once daily). Original Note: Pharmacy Consult ? Medication Reconciliation Pharmacy has completed the medication reconciliation. 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 Pt no longer taking Trulicity and states she stopped that ~1 month ago, she confirmed she takes 42 units of Lantus daily, she stopped taking the Arnuity inhaler due to not finding it was helping her at all when she used it and she wasn't familiar with whether or not she was taking Lisinopril once daily; claims shows it has been getting filled consistently for 90 days since 10/2024.
[2025-08-07] MEDS: 0.9 % Sodium Chloride Flush 3 ML SYRINGE IVFLUSH ×3 (08:39→20:25)
[2025-08-07] MEDS: Nicotine 21 MG PATCH.TD24 TRANSDERMA (11:22)
[2025-08-07 11:27] LABS: Glucose, Whole Blood 86 mg/dL (60-115)
[2025-08-07 12:00] VITALS: BP 120/58; PULSE 67; RESP 18; TEMP 36.3; O2SAT 100
--- NOTE | 2025-08-07 14:58 | MHC.CM.PN ---
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
[2025-08-07 15:26] VITALS: BP 144/63; PULSE 81; RESP 18; TEMP 36.7; O2SAT 94
[2025-08-07 16:34] LABS: Glucose, Whole Blood 184 mg/dL (60-115)
--- NOTE | 2025-08-07 17:57 | P.PNIM_ITS ---
Subjective Subjective Date of Service: 08/07/25 Interval History: Some improvement in SOB Still persistent and productive cough Legs feel better and less cramping Denies any chest pain Review of Systems Review of Systems: Yes all other systems are reviewed and are negative Physical Exam 2 Exam: Exam: General: AOx3, no acute distress Resp: Expiratory wheezing and rhonchi bilaterally CVS: S1, S2, RRR GI: +BS, NT, no distention Skin: Warm, dry Neuro: Cranial nerves II-XII grossly intact bilaterally. Motor grossly intact bilaterally Extremities: No edema Psych: Appropriate affect Vital Signs: Vital Signs: Last Vital Signs Temp 98.1 F 08/07/25 15:26 Pulse 81 08/07/25 15:26 Resp 18 08/07/25 15:26 BP 144/63 H 08/07/25 15: Pulse Ox 94 08/07/25 15:26 O2 Del Method Nasal Cannula 08/07/25 15:26 O2 Flow Rate 1.5 08/07/25 15:26 BMI result Body Mass Index 30.0 Objective Data Active Medications Acetaminophen (Acetaminophen 325 Mg Tablet) 650 mg PO Q6H PRN PRN Reason: Pain, Mild 1-3,fever,headache Aspirin (Aspirin Enteric Coated 81 Mg Tablet.Dr) 81 mg PO DAILY [facility] Calcium Carbonate (Calcium Carbonate 750 Mg Tab.Chew) 750 mg PO Q4H PRN PRN Reason: Heartburn Dextrose (Dextrose 50 % 25 Gm/50 Ml Syringe) 25 gm IVPUSH Q15M PRN; Protocol PRN Reason: per Hypoglycemia Standing Ord. Glucose (Glucose Gel 15 Gm Gel..Gram.) 15 gm PO Q15M PRN; Protocol PRN Reason: per Hypoglycemia Standing Ord. Guaifenesin/Dextromethorphan (Guaifenesin Dm 100/10/5 Ml 5 Ml Syrup) 5 ml PO Q4H PRN PRN Reason: Cough Last Admin: 08/07/25 16:48 Dose: 5 ml Documented By: EARNESTINE Heparin Sodium (Porcine) (Heparin Sodium,Porcine 5,000 Unit/Ml Vial) 5,000 unit SUBCUT Q12H [facility] Last Admin: 08/07/25 16:00 Dose: 5,000 unit Documented By: EARNESTINE Ceftriaxone Sodium 1 gm/ (Sodium Chloride) 50 mls @ 100 mls/hr IV Q24H [facility] Last Infusion: 08/07/25 16:24 Dose: Infused Documented By: EARNESTINE Azithromycin 500 mg/ Sodium (Chloride) 250 mls @ 125 mls/hr IV Q24H [facility] Last Admin: 08/07/25 15:55 Dose: 125 mls/hr Documented By: EARNESTINE Iron Sucrose 100 mg/ Sodium (Chloride) 55 mls @ 220 mls/hr IV DAILY@1700 [facility] Stop: 08/09/25 17:29 Last Infusion: 08/06/25 23:49 Dose: Infused Documented By: GONZÁLEZ Insulin Human Lispro (Insulin Lispro 100 Unit/Ml 3 Ml Vial) 0 unit SUBCUT QIDACHS [facility]; Protocol Last Admin: 08/07/25 16:45 Dose: 2 unit Documented By: EARNESTINE Magnesium Hydroxide (Milk Of Magnesia 30 Ml Oral.Susp) 30 ml PO DAILY PRN PRN Reason: Constipation Magnesium Oxide (Magnesium Oxide 400 Mg Tablet) 400 mg PO BIDPC [facility] Last Admin: 08/07/25 08:37 Dose: 400 mg Documented By: EARNESTINE Melatonin (Melatonin 3 Mg Tablet) 6 mg PO BEDTIME PRN PRN Reason: Insomnia Nicotine (Nicotine 21 Mg Patch.Td24) 21 mg TRANSDERMA DAILY [facility] Last Admin: 08/07/25 11:22 Dose: 21 mg Documented By: EARNESTINE Nicotine Polacrilex (Nicotine Polacrilex 2 Mg Gum) 2 mg BUCCAL Q2H PRN PRN Reason: Nicotine Cravings Sodium Chloride (0.9 % Sodium Chloride Flush 3 Ml Syringe) 3 ml IVFLUSH QSHIFT [facility] Last Admin: 08/07/25 15:18 Dose: 3 ml Documented By: EARNESTINE Labs 08/07/25 05:09 08/07/25 05:09 Labs: Laboratory Results - last 24 hr 08/07/25 08/07/25 08/07/25 05:09 07:13 11:24 MCV 73.5 L MCH 22.5 L MCHC 30.5 L RDW 18.3 H Plt Count 373 MPV 9.1 L Absolute Nucleated RBC 0.000 Nucleated RBC % (auto) 0.0 Anion Gap 13 Estim Creat Clear Calc 45.3 Estimated GFR > 60 POC Glucose 114 86 Random Glucose 180 H Calcium 8.6 Magnesium 1.8 08/07/25 16:29 MCV MCH MCHC RDW Plt Count MPV Absolute Nucleated RBC Nucleated RBC % (auto) Anion Gap Estim Creat Clear Calc Estimated GFR POC Glucose 184 H Random Glucose Calcium Magnesium Microbiology Microbiology Results: Microbiology 08/06/25 14:32 Blood Culture - Preliminary Blood - Venous No growth after 24 hours. 08/06/25 14:32 Blood Culture - Preliminary Blood - Venous No growth after 24 hours. Assessment and Plan (1) COPD (chronic obstructive pulmonary disease): Status: Acute (2) Pneumonia: Status: Acute (3) Hypoxia: Status: Acute Plan 79 year old women admitted with Pneumonia and COPD exacerbation Acute hypoxic respiratory failure in the setting of COPD exacerbation with concomitant community acquired Pneumonia IV rocephin and azithromycin Solu-Medrol Duonebs scheduled and as needed Supplemental oxygen to keep oxygen saturation >91% Follow blood cx Hypomagenesemia, resolved repleted recheck in the morning Diabetes mellitus 2 ss, ada diet Holding on Lantus for now as POC <100 Hypertension stable BP continue home medications Iron def anemia H&H with significant drop from 8.5-->7.3 Iron levels 18 with 6% saturation IV iron, then oral iron No signs of bleeding GERD PPI HLD Statin DVT prophylaxis with heparin Full code Pt requires continued hospitalization for administration of supplemental oxygen, IV steroids, breathing treatments, and IV antibiotics as pt has not yet back to baseline and requiring supplemental oxygen. Will also continue to monitor labs for significant drop in H&H. Quality Stroke Does the patient have a stroke diagnosis?: No VTE Prior VTE?: No VTE Risk Level:: Medical - moderate - high VTE Device Contraindication: Treatment Not Indicated VTE Drug Contraindication: N/A - Med Ordered
[2025-08-07 20:00] VITALS: BP 140/63; PULSE 78; RESP 18; TEMP 36; O2SAT 94
[2025-08-07] MEDS: Calcium + Vitamin D 250 MG TABLET 500 MG PO (20:25)
[2025-08-07 21:12] LABS: Glucose, Whole Blood 67 mg/dL (60-115)
[2025-08-07 21:45] LABS: Glucose, Whole Blood 122 mg/dL (60-115)
[2025-08-08] VITALS (8 sets, daily range): BP systolic 132–145; BP diastolic 56–66; PULSE 50–80; RESP 16–20; TEMP 36–36.7; O2SAT 93–100
[2025-08-08 06:34] LABS: Hematocrit 23.9 % (37.0-47.0); Hemoglobin 7.1 g/dl (12.0-16.0); Mean Corpuscular HGB Conc 29.7 g/dl (31.0-35.0); Mean Corpuscular Hemoglobin 22.2 pg (27.0-33.0); Mean Corpuscular Volume 74.7 fL (80.0-98.0); NRBC Abs Auto 0.000 X10*3/uL (0.0-0.012); NRBC Pct Auto 0.0 /100WBC (0.0-0.2); Platelet Count 375 X10*3/uL (160-400); Red Blood Count 3.20 X10*6/uL (4.20-5.50); White Blood Count 9.1 X10*3/uL (4.8-10.8)
[2025-08-08 06:41] LABS: Anion Gap 13 (12-20); Blood Urea Nitrogen 11 mg/dL (9-16); Calcium 9.3 mg/dL (8.4-10.2); Carbon Dioxide 25 mmol/L (22-29); Chloride 112 mmol/L (96-108); Creatinine Clr Calc Pharmacy 47.1; Estimated Glomerular Filt Rate > 60; Potassium 4.5 mmol/L (3.3-5.1); Sodium 145 mmol/L (135-145)
[2025-08-08] MEDS: Nicotine 21 MG PATCH.TD24 TRANSDERMA (07:40)
[2025-08-08] MEDS: Calcium + Vitamin D 250 MG TABLET 500 MG PO ×2 (07:41→21:18)
[2025-08-08] MEDS: Aspirin Enteric Coated 81 MG TABLET.DR PO (07:41)
[2025-08-08] MEDS: 0.9 % Sodium Chloride Flush 3 ML SYRINGE IVFLUSH ×2 (07:41→17:08)
[2025-08-08 08:06] LABS: Glucose, Whole Blood 88 mg/dL (60-115)
[2025-08-08 11:28] LABS: Glucose, Whole Blood 176 mg/dL (60-115)
--- NOTE | 2025-08-08 13:46 | MHC.CM.PN ---
Patient meets INPT criteria. Provider notified, and has changed the pt from OBS to INPT. AN IMM was verbally delivered to the patient. A written copy left at bedside.
--- NOTE | 2025-08-08 14:50 | MHC.CM.PN ---
per rounds pt will be dc ready plan remains home
[2025-08-08 16:21] LABS: Glucose, Whole Blood 166 mg/dL (60-115)
--- NOTE | 2025-08-08 17:17 | P.PNIM_ITS ---
Subjective Subjective Date of Service: 08/08/25 Interval History: H&H further drop today from 7.3--> 7.1 No signs of bleeding, pt denies hemoptysis, hematemesis, hematochezia, or melena Notes she has felt tired and occasionally lightheaded and dizzy Iron studies indicate iron deficiency anemia Attempted to transfuse pt 1 unit PRBCs, but pt refused Reports breathing and cough better Has been slowly weaned off of home O2 Review of Systems Review of Systems: Yes all other systems are reviewed and are negative Physical Exam 2 Exam: Exam: General: AOx3, no acute distress Resp: Diffuse wheezing and rhonchi CVS: S1, S2, RRR GI: +BS, NT, no distention Skin: Warm, dry Neuro: Cranial nerves II-XII grossly intact bilaterally. Motor grossly intact bilaterally Extremities: No edema Psych: Appropriate affect Vital Signs: Vital Signs: Last Vital Signs Temp 97.2 F 08/08/25 16:00 Pulse 64 08/08/25 16:00 Resp 20 08/08/25 16:00 BP 142/63 H 08/08/25 16:00 Pulse Ox 100 08/08/25 16:00 O2 Del Method Oxymask 08/08/25 16:00 O2 Flow Rate 2 08/08/25 16:00 BMI result Body Mass Index 30.0 Objective Data Active Medications Acetaminophen (Acetaminophen 325 Mg Tablet) 650 mg PO Q6H PRN PRN Reason: Pain, Mild 1-3,fever,headache Last Admin: 08/07/25 20:38 Dose: 650 mg Documented By: ALFREDO Aspirin (Aspirin Enteric Coated 81 Mg Tablet.) 81 mg PO DAILY [facility] Last Admin: 08/08/25 07:41 Dose: 81 mg Documented By: CHRISTOPHER Atorvastatin Calcium (Atorvastatin Calcium 40 Mg Tablet) 40 mg PO BEDTIME [facility] Last Admin: 08/07/25 20:25 Dose: 40 mg Documented By: ALFREDO Baclofen (Baclofen 10 Mg Tablet) 10 mg PO BID [facility] Last Admin: 08/08/25 07:41 Dose: 10 mg Documented By: CHRISTOPHER Calcium Carbonate (Calcium Carbonate 750 Mg Tab.Chew) 750 mg PO Q4H PRN PRN Reason: Heartburn Calcium Carbonate/Cholecalciferol (Calcium + Vitamin D 250 Mg Tablet) 500 mg PO BID [facility] Last Admin: 08/08/25 07:41 Dose: 500 mg Documented By: CHRISTOPHER Cyanocobalamin (Cyanocobalamin (Vitamin B-12) 1,000 Mcg Tablet) 1,000 mcg PO DAILY [facility] Last Admin: 08/08/25 07:41 Dose: 1,000 mcg Documented By: CHRISTOPHER Dextrose (Dextrose 50 % 25 Gm/50 Ml Syringe) 25 gm IVPUSH Q15M PRN; Protocol PRN Reason: per Hypoglycemia Standing Ord. Docusate Sodium (Docusate Sodium 100 Mg Capsule) 100 mg PO DAILY PRN PRN Reason: Constipation Gabapentin (Gabapentin 300 Mg Capsule) 300 mg PO TID [facility] Last Admin: 08/08/25 14:26 Dose: 300 mg Documented By: CHRISTOPHER Glucose (Glucose Gel 15 Gm Gel..Gram.) 15 gm PO Q15M PRN; Protocol PRN Reason: per Hypoglycemia Standing Ord. Guaifenesin/Dextromethorphan (Guaifenesin Dm 100/10/5 Ml 5 Ml Syrup) 5 ml PO Q4H PRN PRN Reason: Cough Last Admin: 08/07/25 16:48 Dose: 5 ml Documented By: EARNESTINE Heparin Sodium (Porcine) (Heparin Sodium,Porcine 5,000 Unit/Ml Vial) 5,000 unit SUBCUT Q12H [facility] Last Admin: 08/08/25 16:36 Dose: 5,000 unit Documented By: OBINNA Ceftriaxone Sodium 1 gm/ (Sodium Chloride) 50 mls @ 100 mls/hr IV Q24H [facility] Last Admin: 08/08/25 16:36 Dose: 100 mls/hr Documented By: OBINNA Azithromycin 500 mg/ Sodium (Chloride) 250 mls @ 125 mls/hr IV Q24H [facility] Last Infusion: 08/07/25 18:24 Dose: Infused Documented By: EARNESTINE Iron Sucrose 400 mg/ Sodium (Chloride) 270 mls @ 108 mls/hr IV ONCE ONE Stop: 08/08/25 17:52 Last Admin: 08/08/25 17:11 Dose: 108 mls/hr Documented By: OBINNA Insulin Human Lispro (Insulin Lispro 100 Unit/Ml 3 Ml Vial) 0 unit SUBCUT QIDACHS [facility]; Protocol Last Admin: 08/08/25 17:08 Dose: 2 unit Documented By: OBINNA Lisinopril (Lisinopril 10 Mg Tablet) 10 mg PO DAILY [facility]; Protocol Last Admin: 08/08/25 07:41 Dose: 10 mg Documented By: CHRISTOPHER Magnesium Hydroxide (Milk Of Magnesia 30 Ml Oral.Susp) 30 ml PO DAILY PRN PRN Reason: Constipation Magnesium Oxide (Magnesium Oxide 400 Mg Tablet) 400 mg PO BIDPC [facility] Last Admin: 08/08/25 16:38 Dose: 400 mg Documented By: OBINNA Melatonin (Melatonin 3 Mg Tablet) 6 mg PO BEDTIME PRN PRN Reason: Insomnia Last Admin: 08/07/25 20:39 Dose: 6 mg Documented By: ALFREDO Nicotine (Nicotine 21 Mg Patch.Td24) 21 mg TRANSDERMA DAILY [facility] Last Admin: 08/08/25 07:40 Dose: 21 mg Documented By: CHRISTOPHER Nicotine Polacrilex (Nicotine Polacrilex 2 Mg Gum) 2 mg BUCCAL Q2H PRN PRN Reason: Nicotine Cravings Omeprazole (Omeprazole 40 Mg Capsule.) 40 mg PO BID@0630,1630 [facility] Last Admin: 08/08/25 16:38 Dose: 40 mg Documented By: OBINNA Senna (Sennosides 8.6 Mg Tablet) 17.2 mg PO BEDTIME [facility] Last Admin: 08/07/25 20:25 Dose: 17.2 mg Documented By: ALFREDO Sodium Chloride (0.9 % Sodium Chloride Flush 3 Ml Syringe) 3 ml IVFLUSH QSHIFT [facility] Last Admin: 08/08/25 17:08 Dose: 3 ml Documented By: OBINNA Tramadol HCl (Tramadol Hcl 50 Mg Tablet) 50 mg PO Q6H PRN PRN Reason: Pain, Moderate(Pain Scale 4-6) Labs 08/08/25 05:45 08/08/25 05:45 Labs: Laboratory Results - last 24 hr 08/07/25 08/07/25 08/07/25 05:09 20:42 21:41 MCV MCH MCHC RDW Plt Count MPV Absolute Nucleated RBC Nucleated RBC % (auto) Anion Gap Estim Creat Clear Calc Estimated GFR POC Glucose 67 122 H Random Glucose Estimat Average Glucose 154 Hemoglobin A1c % 7.0 H Calcium 08/08/25 08/08/25 08/08/25 05:45 08:03 11:23 MCV 74.7 L MCH 22.2 L MCHC 29.7 L RDW 18.6 H Plt Count 375 MPV 8.9 L Absolute Nucleated RBC 0.000 Nucleated RBC % (auto) 0.0 Anion Gap 13 Estim Creat Clear Calc 47.1 Estimated GFR > 60 POC Glucose 88 176 H Random Glucose 79 Estimat Average Glucose Hemoglobin A1c % Calcium 9.3 D 08/08/25 16:10 MCV MCH MCHC RDW Plt Count MPV Absolute Nucleated RBC Nucleated RBC % (auto) Anion Gap Estim Creat Clear Calc Estimated GFR POC Glucose 166 H Random Glucose Estimat Average Glucose Hemoglobin A1c % Calcium Microbiology Microbiology Results: Microbiology 08/06/25 14:32 Blood Culture - Preliminary Blood - Venous No growth after 48 hours. 08/06/25 14:32 Blood Culture - Preliminary Blood - Venous No growth after 48 hours. Assessment and Plan (1) Hypoxia: Status: Acute (2) Pneumonia: Status: Acute (3) COPD (chronic obstructive pulmonary disease): Status: Acute Plan 79 year old women admitted with Pneumonia and COPD exacerbation Acute hypoxic respiratory failure in the setting of COPD exacerbation with concomitant community acquired Pneumonia IV rocephin and azithromycin, day 3 Solu-Medrol Duonebs scheduled and as needed Supplemental oxygen to keep oxygen saturation >91%; has been weaned off O2 at rest, still tachypnic with ambulation Follow blood cx Iron def anemia H&H with significant drop from 8.5-->7.3-->7.1 Iron levels 18 with 6% saturation No signs of bleeding, but will check stool for occult blood Received IV iron 100mg x2 with continued drop in H&H Hematology consulted, request Venofer 400 mg IV Attempted to transfuse 1 unit PRBCs to pt, but she refused Will monitor H&H tomorrow and transfuse if necessary Hypomagenesemia, resolved repleted recheck in the morning Diabetes mellitus 2 ss, ada diet Holding on Lantus for now as POC <100 Hypertension stable BP continue home medications GERD PPI HLD Statin DVT prophylaxis with heparin Full code Pt requires continued hospitalization for administration of supplemental oxygen with ambulation, IV steroids, breathing treatments, and IV antibiotics as pt has not yet back to baseline and requiring supplemental oxygen with ambulation. Patient's hospital stay has been further prolonged due to worsening iron deficiency anemia. Plan is to check H&H tomorrow and transfuse as necessary. Pt should likely be able to be discharged tomorrow. Quality Stroke Does the patient have a stroke diagnosis?: No VTE Prior VTE?: No VTE Risk Level:: Medical - moderate - high VTE Device Contraindication: Treatment Not Indicated VTE Drug Contraindication: N/A - Med Ordered
[2025-08-08 19:53] LABS: Glucose, Whole Blood 239 mg/dL (60-115)
[2025-08-09] VITALS: BP 143/53; PULSE 75; RESP 18; TEMP 36.8; O2SAT 92
[2025-08-09] MEDS: 0.9 % Sodium Chloride Flush 3 ML SYRINGE IVFLUSH ×2 (00:05→08:40)
[2025-08-09 03:33] VITALS: BP 118/56; PULSE 76; RESP 18; TEMP 36.8; O2SAT 93
[2025-08-09 05:29] LABS: Hematocrit 24.3 % (37.0-47.0); Hemoglobin 7.4 g/dl (12.0-16.0); Mean Corpuscular HGB Conc 30.5 g/dl (31.0-35.0); Mean Corpuscular Hemoglobin 22.6 pg (27.0-33.0); Mean Corpuscular Volume 74.3 fL (80.0-98.0); NRBC Abs Auto 0.000 X10*3/uL (0.0-0.012); NRBC Pct Auto 0.0 /100WBC (0.0-0.2); Platelet Count 400 X10*3/uL (160-400); Red Blood Count 3.27 X10*6/uL (4.20-5.50); White Blood Count 9.3 X10*3/uL (4.8-10.8)
[2025-08-09 07:49] LABS: Glucose, Whole Blood 114 mg/dL (60-115)
[2025-08-09 07:56] VITALS: BP 129/60; PULSE 66; RESP 16; TEMP 36.2; O2SAT 93
[2025-08-09] MEDS: Nicotine 21 MG PATCH.TD24 TRANSDERMA (08:38)
[2025-08-09] MEDS: Calcium + Vitamin D 250 MG TABLET 500 MG PO (08:38)
[2025-08-09] MEDS: Aspirin Enteric Coated 81 MG TABLET.DR PO (08:38)
[2025-08-09] MEDS: Albuterol/Iprat 2.5/0.5MG 3 ML AMPUL.NEB INHALE (11:22)
[2025-08-09 11:24] VITALS: PULSE 83; RESP 16; O2SAT 89
[2025-08-09 11:56] LABS: Glucose, Whole Blood 212 mg/dL (60-115)
[2025-08-09 12:00] VITALS: BP 129/60; PULSE 74; RESP 18; TEMP 36.7; O2SAT 97
--- NOTE | 2025-08-09 13:18 | PM.DS ---
DS: Providers Provider Date of Service: 08/09/25 Date of admission: 08/08/25 13:39 Date of discharge: 08/09/25 Primary care physician: Edilma Norwood DO Consults: 08/08/25 14:27 Consult to Hematology / Oncology Routine Consulting Provider: [facility] [place] Oncology/Hematology Reason for consultation: Worsening anemia, not responsive to IV iron DS: Diagnosis Discharge Diagnosis (1) Hypoxia: Status: Acute (2) Pneumonia: Status: Acute (3) COPD (chronic obstructive pulmonary disease): Status: Acute DS: Summary Hospital Course Hospital Course: From admission HPI: Date of Service: 08/06/25 Chief Complaint: Cough and sob 71-year-old woman with a history of COPD presented to the ER with the concerns of cough for 5 days with chills, eye redness and drainage. Patient reports a productive cough with yellow and green colored sputum. She has been using her home inhalers without any relief. She reported shortness of breath with exertion. She denied fever, chills, nausea and vomiting. She had been using her inhalors with no relief. CXR showed LLL pneumonia and she likely also has COPD exacerbation. In the ED she was given IV solumedrol, IV antibiotics and placed on oxygen. She will be admitted for management of COPD and PNA. Hospital course: Pt admitted to hospital for acute hypoxic respiratory failure in the setting of COPD exacerbation with concomitant community-acquired pneumonia. Pt reported she ran out of home nebulizer solution, recently switched maintenance inhalers to one she feels is not useful, and currently smokes 1 pack of cigarettes daily. Pt was treated with IV antibiotics, IV steroids, bronchodilator therapy, and supplemental oxygen. Pt was eventually weaned off of supplemental oxygen yesterday evening and today at time of discharge reports that her breathing is back to baseline. Hospital stay was prolonged and complicated by significant drop and patient's H&H: 8.5-->7.3-->7.1. Pt had no signs of bleeding but was found to be iron deficient with iron levels of 18 and 6% saturation. Pt initially received IV iron 100 mg x2 without improvement to H&H. Hematology was consulted and requested Venofer 400 mg IV x1. Pt was also offered transfusion of 1 unit PRBCs, but pt refused. Today patient's H&H showed mild improvement to 7.4 and she wished to be discharged home. Pt will be discharged on azithromycin 500 mg daily, cefuroxime 500 mg b.i.d., and prednisone 40 mg daily x3 days. She will also be started on oral iron supplementation and be given nicotine patches for help with smoking cessation. Pt should follow up with Hematology outpatient for management and monitoring of her anemia, as well as PCP in 1 week for routine blood draws to monitor anemia and for routine post hospitalization visit. Pt will need to contact her PCP for refill for her home nebulizer. Time Attestation Discharge Coordination Time (in mins): 37 Quality: Safe Use of Opioids Does Pt have an Active Cancer Diagnosis on the Problem List?: No Quality: Stroke Does the patient have a stroke diagnosis?: No Physical Exam Exam: Exam: General: AOx3, no acute distress Resp: Mild bilateral wheezing CVS: S1, S2, RRR GI: +BS, NT, no distention Skin: Warm, dry Neuro: Cranial nerves II-XII grossly intact bilaterally. Motor grossly intact bilaterally Extremities: No edema Psych: Appropriate affect Vital Signs: Vital Signs: Last Vital Signs Temp 98.0 F 08/09/25 12:00 Pulse 74 08/09/25 12:00 Resp 18 08/09/25 12:00 BP 129/60 08/09/25 12:00 Pulse Ox 97 08/09/25 12:00 O2 Del Method Room Air 08/09/25 12:00 O2 Flow Rate 2 08/08/25 16:00 BMI result Body Mass Index 30.0 DS: Data Data Completed and Pending Labs on day of discharge: Laboratory Results - last 24 hr 08/08/25 08/08/25 08/09/25 16:10 19:46 05:02 WBC 9.3 RBC 3.27 L Hgb 7.4 L Hct 24.3 L MCV 74.3 L MCH 22.6 L MCHC 30.5 L RDW 18.0 H Plt Count 400 MPV 8.8 L Absolute Nucleated RBC 0.000 Nucleated RBC % (auto) 0.0 POC Glucose 166 H 239 H 08/09/25 08/09/25 07:46 11:46 WBC RBC Hgb Hct MCV MCH MCHC RDW Plt Count MPV Absolute Nucleated RBC Nucleated RBC % (auto) POC Glucose 114 212 H Preliminary micro results at discharge 08/06/25 14:32 Blood Culture - Preliminary Blood - Venous No growth after 48 hours. 08/06/25 14:32 Blood Culture - Preliminary Blood - Venous No growth after 48 hours. Discharge Plan Discharge Anticipated Discharge Date/Time: 08/09/25 12:46 Patient Disposition: Home, Self-Care Discharge Diagnosis: Acute hypoxic respiratory failure setting SOB exacerbation with concomitant community-acquired pneumonia Referrals: Becca Sutton MD [Physician, Hematology & Oncology] - 1 Week Referral Note: F/U for iron deficiency anemia requiring IV iron transfusions in the hospital Edilma Norwood DO [Primary Care Provider, Internal Medicine] - 1 Week Discharge Medications: New azithromycin 500 mg tablet 500 mg PO DAILY Qty: 4 0RF Rx Instructions: Take 1 tablet daily in the evening starting on 08/09 and ending 08/12 cefuroxime axetil 500 mg tablet 500 mg PO BID Qty: 7 0RF Rx Instructions: Take 1 tablet twice a day with food for the next 3 days, starting the evening of 08/09 and ending the evening of 08/12 ferrous sulfate [iron] 325 mg (65 mg iron) tablet 325 mg PO BID Qty: 180 0RF Rx Instructions: Take one tablet twice a day with food for iron deficiency anemia albuterol sulfate [Ventolin HFA] 90 mcg/actuation HFA aerosol inhaler 2 puff inhalation QID PRN (Reason: shortness of breath or wheezing) Qty: 8.5 0RF Rx Instructions: Take 2 puffs up to 4 times daily as needed for SOB or wheezing. prednisone 20 mg tablet 40 mg PO DAILY Qty: 6 0RF Rx Instructions: Take two tablets (40mg) daily for the next three days, 08/10-08/12 nicotine 21 mg/24 hr patch 24 hour 1 patch transdermal DAILY Qty: 28 0RF Continued (DME) nebulizers [facility] [place] See Rx Instructions .Route Qty: 1 0RF Rx Instructions: As directed omeprazole 40 mg capsule,delayed release(DR/EC) 40 mg PO BID@0630,1630 omega-3 fatty acids 1,000 mg Capsule 1,000 mg PO BID docusate sodium [Colace] 100 mg capsule 100 mg PO DAILY PRN (Reason: Constipation) gabapentin 300 mg capsule 300 mg PO TID baclofen 10 mg tablet 10 mg PO BID aspirin 81 mg tablet,delayed release (DR/EC) 81 mg PO DAILY metformin 500 mg tablet 1,000 mg PO BID calcium carbonate-vitamin D3 600 mg(1,500mg) -400 unit tablet 1 tab PO BID atorvastatin 40 mg tablet 40 mg PO BEDTIME insulin glargine [Lantus Solostar U-100 Insulin] 100 unit/mL (3 mL) insulin pen 42 unit subcut DAILY tramadol 50 mg tablet 50 mg PO Q6H PRN (Reason: Pain) acetaminophen 650 mg tablet extended release 650 mg PO Q8H PRN (Reason: Pain) lisinopril 10 mg tablet 10 mg PO DAILY cyanocobalamin (vitamin B-12) 1,000 mcg tablet 1,000 mcg PO DAILY senna 8.6 mg capsule 17.2 mg PO BEDTIME 30 Days Qty: 60 4RF Discharge Orders: Discharge Order (Routine); Ordered 08/09/25 Ordered By: Jase Muse Activity on Discharge: As tolerated Stand Alone Forms: Patient Portal Discharge page Print Language: Tanzanian Care Plan Goals: See below Health Concerns: Acute hypoxic respiratory failure COPD exacerbation Community-acquired pneumonia Iron-deficiency anemia Plan of Treatment: You were admitted to the hospital if you were found to be hypoxic and had both a COPD exacerbation and community acquired pneumonia. You were treated with IV antibiotics, IV steroids, breathing treatments, and supplemental oxygen. You were eventually weaned off of supplemental oxygen and report today at time of discharge that your breathing is back to normal. You also noted that you have run out supplies for your home nebulizer and recently switched your home inhaler due to insurance purposes that you feel is not very beneficial, and are currently smoking 1 pack of cigarettes daily. Hospital course was complicated by significant drop in your blood levels. You did not have any signs or symptoms of active bleeding, but you were noted to have low iron levels. You were treated with IV iron and Hematology was consulted who requested additional IV iron dosing and follow up outpatient. You were offered a transfusion of 1 unit packed red blood cells but you prefer to not use any blood products. Your H&H was monitored again today and was noted to have a slight increase. You will be discharged on oral iron supplementation and to follow up outpatient with both your PCP and Hematology for monitoring of her anemia. -- take cefuroxime 500 mg twice a day with food for the next 3 days, beginning the evening of 12/4 and ending the evening of 12. -- take azithromycin 500 mg daily in the evenings for the next 4 days, beginning in the evening of 12/4 and ending the evening of 08/12. -- take prednisone 40 mg (2 tabs) daily for the next 3 days. -- take ferrous sulfate 325 mg twice a day with food for iron-deficiency anemia. -- you were strongly encouraged to refrain from smoking, and will be prescribed nicotine patches to be applied daily in order to help in that endeavor -- follow up with Dr. Sutton in Hematology for treatment and management of your iron-deficiency anemia. -- follow up with your PCP in 1 week for routine post hospitalization visit as well as routine labs to monitor anemia. -- contact your PCP for a refill for your home nebulizer. He will be prescribed a rescue albuterol inhaler upon discharge. Assessment: See discharge summary
--- NOTE | 2025-08-09 14:47 | MHC.CM.PN ---
PT CLEARED TO DC HOME TODAY WITH NO SERVICES [employer] TO TRANSPORT
== END 2025-08-09 14:55 | disposition home or self-care (01) | DRG 193 ==
LOC: HO.ED 10:33 → HO.EDOVER 15:59 → HO.S3 19:08
PROVIDERS: Physician Assistant Medical; Admitting Provider Nurse Practitioner Acute Care; Emergency Provider Emergency Medicine Emergency Medical Services; PCP Family Medicine; Visit Provider Student in an Organized Health Care Education/Training Program
DX: J18.9 Pneumonia, unspecified organism (principal); J96.01 Acute respiratory failure with hypoxia; J44.0 Chronic obstructive pulmonary disease with (acute) lower respiratory infection; J44.1 Chronic obstructive pulmonary disease with (acute) exacerbation; R13.10 Dysphagia, unspecified; F17.210 Nicotine dependence, cigarettes, uncomplicated; Z71.6 Tobacco abuse counseling; E83.42 Hypomagnesemia; D50.9 Iron deficiency anemia, unspecified; I10 Essential (primary) hypertension; K21.9 Gastro-esophageal reflux disease without esophagitis; E78.5 Hyperlipidemia, unspecified; Z20.822 Contact with and (suspected) exposure to COVID-19; Z79.4 Long term (current) use of insulin; Z79.82 Long term (current) use of aspirin; Z79.84 Long term (current) use of oral hypoglycemic drugs; Z79.899 Other long term (current) drug therapy
CPT/HCPCS: 36415; 71046; 71275; 80048; 80053; 82803; 82947; 83036; 83540; 83605; 83735; 83880; 84484; 85025; 85027; 85379; 87040; 87637; 93005; 93970; 94640; 99285; J0456; J0696; J1271; J1644; J1756; J2919; J3475; Q9967

== ENCOUNTER → 2025-08-06 08:27 | Outpatient (BNV) | payer OTHER, SELFPAY | PROVIDERS: Admitting Provider Nurse Practitioner Acute Care; Emergency Provider Emergency Medicine Emergency Medical Services; PCP Family Medicine; Visit Provider Internal Medicine | DX: I49.1 Atrial premature depolarization (principal) | CPT/HCPCS: 93010 ==

== ENCOUNTER → 2025-08-06 08:27 | Outpatient (BNV) | payer OTHER, SELFPAY | PROVIDERS: PCP Family Medicine; Visit Provider Radiology Diagnostic Radiology | DX: J18.9 Pneumonia, unspecified organism (principal); M79.661 Pain in right lower leg; M79.662 Pain in left lower leg; R05.9 Cough, unspecified; R06.02 Shortness of breath | CPT/HCPCS: 71046; 71275; 93970 ==

== ENCOUNTER → 2025-08-06 15:41 | Outpatient (BNV) | payer OTHER, SELFPAY | PROVIDERS: Admitting Provider Nurse Practitioner Acute Care; Emergency Provider Emergency Medicine Emergency Medical Services; PCP Family Medicine; Visit Provider Nurse Practitioner Acute Care | DX: J96.01 Acute respiratory failure with hypoxia (principal); J44.9 Chronic obstructive pulmonary disease, unspecified; J18.9 Pneumonia, unspecified organism | CPT/HCPCS: 99223; 99233; 99239 ==

== ENCOUNTER 2025-09-05 08:30 | Outpatient (REF) | payer OTHER, SELFPAY ==
--- OUTSIDE RECORDS SUMMARY | 2025-09-05 08:34 | XMS_ITS | Clinical Summary ---
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 START ONE WEEK PRIOR TO TOBACCO CESSATION. 53 each 1 024 Active fluticasone (Flovent) 110 MCG/ACT inhaler Inhale 1 puff in the morning and at bedtime. Rinse mouth with water after use to reduce aftertaste and incidence of candidiasis. Do not swallow. 12 g 11 025 2025 Active Arnuity Ellipta 200 MCG/ACT inhaler INHALE 1 PUFFS BY MOUTH TWICE DAILY RINSE MOUTH AFTER USING. 30 each 8 08/01/20 25 4:50 PM EST Active glucose blood (FREESTYLE LITE) test stripIndications :Type 2 diabetes mellitus with diabetic polyneuropathy, with long-term current use of insulin ([facility]) TEST BLOOD SUGAR THREE TIMES DAILY 100 strip 11 Active Lantus SoloStar 100 UNIT/ML pen INJECT 45 UNITS SUBCUTANEOUSLY ONCE DAILY 30 mL 3 025 Active docusate sodium (Colace) 100 MG capsuleIndicatio ns:Constipation, unspecified constipation type TAKE 1 CAPSULE BY [...] 2 025 Active gabapentin (Neurontin) 300 MG capsuleIndicatio ns:Chronic neck pain Take 1 capsule (300 mg) by mouth 3 times daily. 90 capsule 5 08/01/20 25 4:50 PM EST 025 Active omeprazole (PriLOSEC) [address] capsuleIndicatio ns:Gastroesophag eal reflux disease without esophagitis TAKE 1 CAPSULE BY MOUTH TWICE DAILY IN THE MORNING AND IN THE EVENING BEFORE MEALS 180 capsule 1 Active Calcium Carb-Cholecalcif eligio 600-10 MG-MCG tablet TAKE 1 TABLET BY MOUTH TWICE DAILY IN THE MORNING AND IN THE EVENING 180 tablet 1 025 Active baclofen (Lioresal) 10 MG tabletIndication s:Other muscle spasm TAKE 1 TABLET BY MOUTH TWICE DAILY IN THE MORNING AND IN THE EVENING 60 tablet 2 08/01/20 25 4:50 PM EST 025 Active Alcohol Swabs (Alcohol Prep) 70 % padsIndications: Type 2 diabetes mellitus with diabetic polyneuropathy, with long-term current use of insulin (HCC) USE DIRECTED THREE TIMES DAILY 100 each 5 Active TRUEplus Lancets 33G miscIndications: Type 2 diabetes mellitus with diabetic polyneuropathy, with long-term current use of insulin (HCC) USE THREE TIMES DAILY TEST BLOOD SUGAR 100 each 5 025 Active lisinopril 10 MG tabletIndication s:Hypertension, unspecified type TAKE 1 TABLET BY MOUTH EVERY MORNING 90 tablet 3 025 Active traMADol (Ultram) 50 MG tabletIndication s:Chronic bilateral low back pain, unspecified whether sciatica present Take 1 tablet (50 mg) by mouth every 6 (six) hours if needed for severe pain for up to 28 days. 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 (HCC) TAKE 2 TABLETS BY MOUTH TWICE DAILY IN THE MORNING AND EVENING 360 tablet 1 Active atorvastatin (Lipitor) 40 MG tabletIndication s:Hyperlipidemia , unspecified hyperlipidemia type TAKE 1 TABLET BY MOUTH AT BEDTIME 30 tablet 5 Active nicotine (Nicoderm, Step 1) 21 MG/24HR patch APPLY 1 PATCH TOPICALLY TO THE SKIN IN THE MORNING DO NOT SMOKE WHILE USING PATCH Active omega-3 (Fish Oil) 1000 MG capsuleIndicatio ns:Hyperlipidemi a, unspecified hyperlipidemia type TAKE 1 CAPSULE BY MOUTH TWICE DAILY IN THE MORNING AND IN THE EVENING 60 capsule 5 Active BD Pen Needle Nelida Ultrafine 32G X 4 MM misc USE DIRECTED FOUR TIMES DAILY 100 each 5 Active nicotine polacrilex (Nicotine Mini) 4 MG lozenge Dissolve 1 lozenge (4 mg) in the mouth every 2 (two) hours if needed for smoking cessation. 100 lozenge 025 2025 Active Ventolin HFA 108 (90 Base) MCG/ACT inhaler Inhale 2 puffs every 4 (four) hours if needed for wheezing. INHALE 2 PUFFS BY MOUTH EVERY 4 HOURS NEEDED SHORTNESS OF BREATH 18 g 3 Active nicotine (Nicoderm CQ) 14 MG/24HR patchIndications :Tobacco dependence syndrome Place 1 patch on the skin 1 (one) time each day at the same time. 30 patch 1 022 2024 Discontinued(M ed list cleanup (will not trigger notification to Pharmacy)) Ventolin HFA 108 (90 Base) MCG/ACT inhaler INHALE 2 PUFFS BY MOUTH EVERY 4 HOURS NEEDED SHORTNESS OF BREATH 2024 Discontinued(R eorder (will not trigger notification to Pharmacy)) [facility] SafePack Pen Needle 32G X 4 MM misc USE DIRECTED FOUR TIMES DAILY 100 each 11 024 2024 Discontinued omega-3 (Fish Oil) 1000 MG capsuleIndicatio ns:Hyperlipidemi a, unspecified hyperlipidemia type TAKE 1 CAPSULE BY MOUTH TWICE DAILY IN THE MORNING AND IN THE EVENING 60 capsule 5 024 2024 Discontinued atorvastatin (Lipitor) 40 MG tabletIndication s:Hyperlipidemia , unspecified hyperlipidemia type TAKE 1 TABLET BY MOUTH AT BEDTIME 30 tablet 5 025 2024 Discontinued Aspirin Low Dose 81 MG EC tabletIndication s:Type 2 diabetes mellitus with other specified complication, unspecified whether 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 (HCC) TAKE 1 TABLET BY MOUTH AT BEDTIME 90 tablet 1 025 2024 Discontinued metFORMIN (Glucophage) 500 MG tabletIndication s:Type 2 diabetes mellitus with other specified complication, unspecified whether halfway insulin use (HCC) TAKE 2 TABLETS BY MOUTH TWICE DAILY IN THE MORNING AND EVENING 360 tablet 1 025 2024 Discontinued traMADol (Ultram) 50 MG tabletIndication s:Chronic bilateral low back pain, unspecified whether sciatica present TAKE 1 TABLET BY MOUTH EVERY 6 HOURS NEEDED FOR SEVERE PAIN 112 tablet 025 2024 Discontinued Ferrous Sulfate (iron) 325 (65 Fe) MG tablet Take 1 tablet by mouth with breakfast and with evening meal. 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 Pt declines further conversations during visit as she endorses office anxiety and would prefer to leave Shortness of breath 10/18/2023 01/02/20 Assessment & Plan (10/18/2023 10:46 AM EST): Likely secondary to tobacco use, but will order x-ray as pt does endorse worsening symptoms pcp has ordered echo Depression 08/17/2022 11/23/2022 Diabetes mellitus 08/17/2022 04/11/2024 Encounters Date Type Department Care Team Description 08/23/2025 10:45 AM EST Office Visit [facility] [address] [place] [phone] Liane Brar MD Vitamin B12 deficiency (Primary Dx); Anemia, unspecified type; Pneumonia of left lower lobe due to infectious organism; Tobacco dependence; Shortness of breath 08/23/2025 Travel 08/22/2025 Telephone [facility] [address] [place] [phone] Edilma Norwood DO Chart Prep 08/22/2025 Refill [facility] [address] [place] [address] Edilma Norwood DO Hyperlipidemia, unspecified hyperlipidemia type 08/17/2025 Refill [facility] [address] [place] [phone] Edilma Norwood DO Hyperlipidemia, unspecified hyperlipidemia type 08/13/2025 Patient Outreach [facility]ED[facility] [address] [place], [place] [phone] Edilma Norwood DO Transition Of Care (Tcm) (HDF scheduled ) 08/13/2025 Telephone [facility] [address] [place] [address] Edilma Norwood DO Hospital Follow-up 08/13/2025 Refill [facility] [address] [place] [address] Edilma Norwood DO Type 2 diabetes mellitus with other specified complication, unspecified whether halfway insulin use (HCC) 08/06/2025 Orders Only [facility] External Provider, [facility] 08/01/2025 Refill [facility] & PEDS [address] [place] [address] Edilma Norwood DO Chronic bilateral low back pain, unspecified whether sciatica present 07/16/2025 Refill [facility] MED & PEDS [address] [place] [address] Edilma Norwood DO Hypertension, unspecified type 07/13/2025 Telephone [facility] [address] [place] [address] Edilma Norwood DO 07/05/2025 Refill [facility] MED & PEDS [address] [place] [address] Edilma Norwood DO Chronic bilateral low back pain, unspecified whether sciatica present 06/17/2025 Refill [facility] [address] [place] [address] Edilma Norwood DO Type 2 diabetes mellitus with diabetic polyneuropathy, with long-term current use of insulin (HCC) 06/14/2025 Refill [facility] [address] [place] [address] Edilma Norwood DO Gastroesophageal reflux disease without esophagitis; Other muscle spasm 06/08/2025 Telephone [facility] [address] [place] [address] Edilma Norwood DO 06/06/2025 11:00 AM EDT Office Visit [facility] [address] [place] [phone] Edilma Norwood DO Type 2 diabetes mellitus [...] colon cancer; Post-menopausal 06/06/2025 Travel 06/05/[address] [phone] Edilma Norwood DO Chart Prep from Last 3 Months Immunizations Immunization Administration Dates Next Due Influenza High-dose Quadrivalent Preservative Fr ee 10/01/2020 Influenza injectable quadriv alent IIV4 with preservative 06/19/2016 Influenza injectable quadrivalent preservative f ree 07/27/2019,10/31/2015 Influenza, High Dose Seasonal, Preservative Free 06/27/2018,06/01/2017 Influenza, IIV3, injectable 07/12/2014, 3 Pfizer Covid-19 Vaccine 12+ 09/08/2021, 1 Pfizer Covid-19 Vaccine 12+ Bivalent 09/02/2022 Pneumococcal [...] Sign Reading Time Taken Comments Blood Pressure 116/72 08/23/2025 11:06 AM EST Pulse 82 08/23/2025 11:06 AM EST Temperature 36.3 C (97.4 F) 08/23/2025 11:06 AM EST Respiratory Rate 20 08/23/2025 11:06 AM EST Oxygen Saturation 95% 06/06/2025 11:45 AM EDT Inhaled Oxygen Concentration - - Weight 61.5 kg (135 lb 9.6 oz) 08/23/2025 11:06 AM EST Height 144.8 cm (4' 9 ) 08/23/2025 11:06 AM EST Body Mass Index 29.34 08/23/2025 11:06 AM EST Plan of Treatment Upcoming Encounters Date Type Department Care Team (Late st Contact Info) Description 09/27/2025 2:00 PM EST Office Visit [facility]OM[facility] [address] [place], [place] [phone] Demi Arias, OD [address] [place] [address] Health Maintenance Due Date Last Done Comments Zoster Vaccines (1 of 2) 1996 RSV Patients and Patients Aged 60 years or older (1 - 1-dose 75+ series) 2021 DTaP/Tdap/Td Vaccines (2 - Td or Tdap) 04/11/2024 04/11/2014 Diabetes: Foot Exam 10/18/2024 10/18/2023, Diabetes: Urine Protein Screening 04/27/2025 04/27/2024, 05/13/2022, 10/01/2020 Lipid Panel 04/27/2025 04/27/2024, 03/2022, 10/01/2020 COVID-19 Vaccine ( season) 2025 09/02/2022, 09/08/2021, 08/18/2021 Influenza Vaccine (#1) 2025 , 07/27/2019, 06/27/2018, Additional history exists Diabetes: Hemoglobin A1C 09/06/2025 025, 11/21/2024, 04/27/2024, Additional history exists Alcohol/Substance Use Screening 11/21/2025 11/21/2024 Depression Monitoring 12/05/2025 06/06/2025, 025 Eye Exam 06/02/2026 06/02/2024, 05/08, 06/02/2024, Additional history exists SDOH Screening 06/06/2026 06/06/2025 Tobacco Screening 08/23/2026 08/23/2025 Pneumococcal Vaccine: 50+ Years Completed 10/14/2016, 09/07/2012 [...] No Jakob Liz, JacqueD Note: Age, comorbidities Help patients manage their type 2 diabetes Care Plan Help patients manage their type 2 diabetes No Samara Monique RN Weekly blood pressure task Care Plan Weekly blood pressure task No Samara Monique RN Help patients manage their type 2 diabetes Care Plan Help patients manage their type 2 diabetes No Samara Monique RN Patient has chronic kidney disease Care Plan Patient has chronic kidney disease No Samara Monique RN Weekly blood pressure task Care Plan Weekly blood pressure task No Samara Monique RN Patient has chronic kidney disease Care Plan Patient has chronic kidney disease No Samara Monique RN Weekly blood pressure task Care Plan Weekly blood pressure task No Colon Burns, Vidhya Weekly blood pressure task Care Plan Weekly blood pressure task No Colon Burns, Vidhya Patient has chronic kidney disease Care Plan Patient has chronic kidney disease No Colon Burns, Vidhya Patient has chronic kidney disease Care Plan Patient has chronic kidney disease No Colon Burns, Vidhya Weekly blood pressure task Care Plan Weekly blood pressure task No Willi Nanette Weekly blood pressure task Care Plan Weekly blood pressure task No Willi, Nanette Patient has chronic kidney disease Care Plan Patient has chronic kidney disease No Willi, Nanette Patient has chronic kidney disease Care Plan Patient has chronic kidney disease No Willi, Nanette Weekly blood pressure task Care Plan Weekly blood pressure task No Weekly blood pressure task Care Plan Weekly blood pressure task No Patient has chronic kidney disease Care Plan Patient has chronic kidney disease No Patient has chronic kidney disease Care Plan Patient has chronic kidney disease No Weekly blood pressure task Care Plan Weekly blood pressure task No Barbara Sadler MA Weekly blood pressure task Care Plan Weekly blood pressure task No Barbara Sadler MA Patient has chronic kidney disease Care Plan Patient has chronic kidney disease No Barbara Sadler MA Patient has chronic kidney disease Care Plan Patient has chronic kidney disease No Barbara Sadler MA Weekly blood pressure task Care Plan Weekly blood pressure task No Renata Meadows MA Weekly blood pressure task Care Plan Weekly blood pressure task No Renata Meadows MA Patient has chronic kidney disease Care Plan Patient has chronic kidney disease No Renata Meadows MA Patient has chronic kidney disease Care Plan Patient has chronic kidney disease No Renata Meadows MA Procedures Procedure Name Priority Date/Time Associated Diagnosis Comments VENOUS BLOOD GAS Routine 08/06/2025 2:41 PM EST LACTIC ACID Routine 08/06/2025 2:32 PM EST CTA CHEST PE PROTOCAL Routine 08/06/2025 12:56 PM EST VASC US LOWER EXTREMITY VENOUS DUPLEX BILATERAL Routine 08/06/2025 12:22 PM EST D DIMER HIGH SENSITIVITY Routine 08/06/2025 11:55 AM EST XR CHEST 2 VIEWS Routine 08/06/2025 8:43 [...] current use of insulin (HCC) POCT GLUCOSE (CPT-18884) Routine 06/06/2025 11:47 AM EDT Type 2 [...] Recently Relevant to Health Maintenance Results * VENOUS BLOOD GAS (08/06/2025 2:41 PM EST) VBG pH 7.35 7.32 - 7.43 [facility] Comment:METER #: [id number] additional_comment: Chris RICKETTS PCO2 45 mmHg [facility] Comment:METER #: [id number] additional_comment: Cb matosa VBG PO2 61 mmHg [facility] Comment:METER #: [id number] additional_comment: Cb matosa VBG Base Excess -0.3 mmol/L [facility] Comment:METER #: [id number] additional_comment: Cb matosa VBG HCO3 25 22 - 26 mmol/L [facility] Comment:METER #: [id number] additional_comment: Cb matosa O2 Sat, Jonel 83.0 % [facility] Comment:METER #: [id number] additional_comment: Cb matosa 08/06/2025 2:41 PM EST 08/06/2025 2:45 PM EST us Generic External Data Provider LAB BLOOD ORDERAB LES Final Result Performing Organization Address [facility] Co de Phone Number [facility] [address] [place] [phone] * Lactic Acid (08/06/2025 2:32 PM EST) Lactic Acid 1.5 0.5 - 2.0 mmol/L [facility] 08/06/2025 2:32 PM EST 08/06/2025 2:40 PM EST Generic External Data Provider LAB BLOOD ORDERAB LES Final Result Performing Organization Address [facility] de Phone Number [facility] [address] [place] [phone] * CTA Chest PE Protocal (08/06/2025 12:56 PM EST) Anatomical Region Laterality Modality Body, Chest Computed Tomogra phy 08/06/2025 12:5 6 PM EST Narrative 08/06/2025 1:24 PM EST [address] [address] [address] Scan Report Signed Patient: Ariella Dorsey MR#: [id number] 6 : 1945 Acct:[id number] Age/Sex: 79 / F ADM Date: 08/06/25 Loc: HO.ED Attending Dr: Ordering Physician: Alyson Richard Date of Service: 08/06/25 Procedure(s): CT angio chest PE protocol Accession Number(s): [id number] cc: Edilma Norwood DO; Alyson Richard Report Number: [id number]: Total DLP = 266.00 mGy-cm Reason for Exam: +ddimer, SOB, hypoxic EXAMINATION: CT ANGIOGRAM CHEST CLINICAL INFORMATION: +d-dimer, SOB, hypoxic COMPARISON: Jul 23, 2020 TECHNIQUE: Multiple axial images were obtained through the chest after the administration of 65 mL of Omnipaque 350 intravenous contrast. Extensive vascular post-processing including two-dimensional and three-dimensional reformatted images were created and reviewed on an independent workstation. This CT examination was performed using dose optimization techniques as appropriate, variously including the following: *Automated exposure control *Adjustment of mA and/or kV according to patient size (this includes techniques or standardized protocols for targeted exams where dose is matched to indication/reason for exam; i.e. extremities or head) *Use of iterative reconstruction technique FINDINGS: QUALITY OF STUDY/CONTRAST BOLUS: Suboptimal with incomplete opacification of tertiary branches. PULMONARY ARTERIES: No central pulmonary emboli. Emboli of peripheral vessels cannot be excluded with certainty. THORACIC AORTA: No aneurysm, dissection, and minimal vascular calcifications are present. LUNGS AND PLEURA: Focal airspace opacity with air bronchograms is present in the left lower lobe contacting the left hemidiaphragm. Again seen are numerous 2 small soft tissue pulmonary nodules, unchanged. The largest measure 3 mm, one in the posterior right upper lobe, and one in the anterior left apex. MEDIASTINUM: Enlargement of the cardiac silhouette on x-ray correlates to increased paracardial fat on the CT without actual cardiac enlargement. CORONARY ARTERY CALCIFICATION: No CHEST WALL/AXILLA: No axillary or internal mammary lymphadenopathy. UPPER ABDOMEN: Unremarkable BONES: Severe degenerative changes present at T12-L1 with vacuum phenomena, endplate sclerosis, and moderate loss of disc height. CT/CT angio chest PE protocol IMPRESSION: No filling defects are identified in the pulmonary arteries to suggest pulmonary embolus. Peripheral vessels are poorly opacified due to contrast bolus timing. Left lower lobe pneumonia. Stable small pulmonary nodules require no further follow-up per Fleischner Society recommendations. Fleischner guidelines were followed. Electronically signed by: Reynaldo Cruz MD 08/06/2025 01:21 PM [facility] Dictated By: Reynaldo Cruz MD Signed By: <Electronically signed by Reynaldo Cruz MD in OV> 08/06/25 1321 DD/ 1256 TD/TT: 08/06/25 1304 Explosive Technician: Procedure Note Donotuseinterpreter, Image - 08/06/[address] [place] [address] [address] Scan Report Signed Patient: Ang Dorsey#: [id number] 6 : 7Acct:[id number] Age/Sex: 79 / FADM Date: 08/06/25 Loc: .ED Attending Dr: Ordering Physician: Alyson Richard Date of Service: 08/06/25 Procedure(s): CT angio chest PE protocol Accession Number(s): [id number] cc: Edilma Norwood DO; Alyson Richard Report Number: [id number]: Total DLP = 266.00 mGy-cm Reason for Exam: +ddimer, SOB, hypoxic EXAMINATION: CT ANGIOGRAM CHEST CLINICAL INFORMATION: +d-dimer, SOB, hypoxic COMPARISON: Jul 23, 2020 TECHNIQUE: Multiple axial images were obtained through the chest after the administration of 65 mL of Omnipaque 350 intravenous contrast. Extensive vascular post-processing including two-dimensional and three-dimensional reformatted images were created and reviewed on an independent workstation. This CT examination was performed using dose optimization techniques as appropriate, variously including the following: *Automated exposure control *Adjustment of mA and/or kV according to patient size (this includes techniques or standardized protocols for targeted exams where dose is matched to indication/reason for exam; i.e. extremities or head) *Use of iterative reconstruction technique FINDINGS: QUALITY OF STUDY/CONTRAST BOLUS: Suboptimal with incomplete opacification of tertiary branches. PULMONARY ARTERIES: No central pulmonary emboli. Emboli of peripheral vessels cannot be excluded with certainty. THORACIC AORTA: No aneurysm, dissection, and minimal vascular calcifications are present. LUNGS AND PLEURA: Focal airspace opacity with air bronchograms is present in the left lower lobe contacting the left hemidiaphragm. Again seen are numerous 2 small soft tissue pulmonary nodules, unchanged. The largest measure 3 mm, one in the posterior right upper lobe, and one in the anterior left apex. MEDIASTINUM: Enlargement of the cardiac silhouette on x-ray correlates to increased paracardial fat on the CT without actual cardiac enlargement. CORONARY ARTERY CALCIFICATION: No CHEST WALL/AXILLA: No axillary or internal mammary lymphadenopathy. UPPER ABDOMEN: Unremarkable BONES: Severe degenerative changes present at T12-L1 with vacuum phenomena, endplate sclerosis, and moderate loss of disc height. CT/CT angio chest PE protocol IMPRESSION: No filling defects are identified in the pulmonary arteries to suggest pulmonary embolus. Peripheral vessels are poorly opacified due to contrast bolus timing. Left lower lobe pneumonia. Stable small pulmonary nodules require no further follow-up per Fleischner Society recommendations. Fleischner guidelines were followed. Electronically signed by: Reynaldo Cruz MD 08/06/2025 01:21 PM EST Dictated By: Reynaldo Cruz MD Signed By: <Electronically signed by Reynaldo Cruz MD in OV> 08/06/25 1321 DD/ 1256 TD/TT: 08/06/25 1304 Explosive Technician: [facility] External Provider IMG CT PROCEDURES Final Result * VASC US Lower Extremity Venous Duplex Bilateral (08/06/2025 12:22 PM EST) 08/06/2025 12:2 2 PM EST Narrative [facility] - 08/06/2025 12:47 PM EST [address] [address] Ultrasound Report Signed Patient: Ariella Dorsey MR#: [id number] 6 : 1945 Acct:[id number] Age/Sex: 79 / F ADM Date: 08/06/25 Loc: HO.ED Attending Dr: Ordering Physician: Alyson Richard Date of Service: 08/06/25 Procedure(s): US venous duplex LE BI Accession Number(s): [id number] cc: Edilma Norwood DO; Alyson Richard Reason for Exam: BL leg pain EXAMINATION: US TRIPLEX LOWER EXTREMITY, BILATERAL CLINICAL INFORMATION: Bilateral lower extremity pain. COMPARISON: None available. TECHNIQUE: Color-flow triplex imaging with spectral analysis and compression Doppler were performed on the bilateral lower extremities. FINDINGS: Respiratory variation, normal compression and augmented flow are noted throughout the bilateral lower extremities. The visualized common femoral vein, superficial femoral vein, profunda femoral vein, popliteal vein and midcalf peroneal and posterior tibial venous segments show no evidence of deep venous thrombosis bilaterally. There is no Miranda's cyst. US/US venous duplex LE BI IMPRESSION: No evidence of deep venous thrombosis involving the bilateral lower extremities. Electronically signed by: Xu Gonzalez MD 08/06/2025 12:44 PM [facility] Dictated By: Xu Gonzalez MD Signed By: <Electronically signed by Xu Gonzalez MD in OV> 08/06/25 1244 DD/ 1222 TD/TT: 08/06/25 1232 Explosive Technician: Procedure Note Donotuseinterpreter, Image - 08/06/2025 [place] [address] Ultrasound Report Signed Patient: Ariella DorseyMR#: [id number] 6 : 1945cct:[id number] Age/Sex: 79 / FADM Date: 08/06/25 Loc: .ED Attending Dr: Ordering Physician: Alyson Richard Date of Service: 08/06/25 Procedure(s): US venous duplex LE BI Accession Number(s): [id number] cc: Edilma Norwood DO; Alyson Richard Reason for Exam: BL leg pain EXAMINATION: US TRIPLEX LOWER EXTREMITY, BILATERAL CLINICAL INFORMATION: Bilateral lower extremity pain. COMPARISON: None available. TECHNIQUE: Color-flow triplex imaging with spectral analysis and compression Doppler were performed on the bilateral lower extremities. FINDINGS: Respiratory variation, normal compression and augmented flow are noted throughout the bilateral lower extremities. The visualized common femoral vein, superficial femoral vein, profunda femoral vein, popliteal vein and midcalf peroneal and posterior tibial venous segments show no evidence of deep venous thrombosis bilaterally. There is no Miranda's cyst. US/US venous duplex LE BI IMPRESSION: No evidence of deep venous thrombosis involving the bilateral lower extremities. Electronically signed by: Xu Gonzalez MD 08/06/2025 12:44 PM EST Dictated By: Xu Gonzalez MD Signed By: <Electronically signed by Xu Gonzalez MD in OV> 08/06/25 1244 DD/ 1222 TD/TT: 08/06/25 1232 Explosive Technician: [facility] External Provider CV VASC ULAR PROCEDURES Edited Result - Final Performing Organization Address [facility]/ZIP Co de Phone Number [facility] [address] [place] [phone] * D Dimer High Sensitivity (08/06/2025 11:55 AM EST) D Dimer High Sensitivity 339 NG/ML [facility] Comment:D-DIMER HS REFERENCE RANGENote: Our assay reports D-Dimer Units (D- DU).The cut-off value for venous thromboembolic (VTE) disease is230 ng/mL. This value has a very high negative predictivevalue when the patient has a low to moderate clinicalprobability of VTE.The upper limit of normal is 243 ng/mL. 08/06/2025 11:5 5 AM EST 08/06/2025 11:58 AM EST Generic External Data Provider LAB BLOOD ORDERAB LES Final Result Performing Organization Address [facility]/ZIP Co de Phone Number [facility] [address] [place] [phone] * XR Chest 2 Views (08/06/2025 8:43 AM EST) Anatomical Region Laterality Modality Chest Radiographic Day ging 08/06/2025 8:43 AM EST Narrative 08/06/2025 9:02 AM EST [address] [address] XRay Report Signed Patient: Ariella Dorsey MR#: [id number] 6 : 1945 Acct:[id number] Age/Sex: 79 / F ADM Date: 08/06/25 Loc: HO.ED Attending Dr: Ordering Physician: Generic ED Physician Date of Service: 08/06/25 Procedure(s): XR chest 2V Accession Number(s): [id number] cc: Generic ED Physician; Edilma Norwood DO [...] 08/06/25 0859 DD/ 0843 TD/TT: 08/06/25 0850 Explosive Technician: LAURA Procedure Note Donotuseinterpreter, Image - 08/06/[address] [address] XRay Report Signed Patient: Ariella DorseyMR#: [id number] 6 : 1945cct:[id number] Age/Sex: 79 / FADM Date: 08/06/25 Loc: HO.ED Attending Dr: Ordering Physician: Generic ED Physician Date of Service: 08/06/25 Procedure(s): XR chest 2V Accession Number(s): [id number] cc: Generic ED Physician; Edilma Norwood DO [...] 08/06/25 0859 DD/ 0843 TD/TT: 08/06/25 0850 Explosive Technician: LAURA Authortamir Provider Result Type Result Stat [facility] External Provider IMG XR PROCEDURES Edited Result - Final * High Sensitivity Troponin I (08/06/2025 8:38 AM EST) TROPONIN I HIGH SENSITIVITY <2.7 <3.5 - 17.0 ng/L [facility] Comment:The Giles high sens itivity Troponin-I results should beused in conjunction with other diagnostic information suchas ECG, clinical observations and information, and patientsymptoms to aid in the diagnosis of PA. 08/06/2025 8:38 AM EST 08/06/2025 8:42 AM EST us Generic External Data Provider LAB BLOOD ORDERAB LES Final Result Performing Organization Address [facility] Co de Phone Number [facility] [address] [place] [phone] * SARS-CoV-2 RNA, Influenza A/B, and RSV RNA, Ql NAAT (08/06/2025 8:38 AM EST) Influenza A PCR NEGATIVE Negative [facility] Influenza B PCR NEGATIVE Negative [facility] Resp Syncy Virus RNA Qual PCR NEGATIVE Negative [facility] SARS COV2 PCR NEGATIVE Negative [facility] Comment:All test results mus t be [...] use by authorized laboratories.Testing performed on the [employer] GeneXpert utilizingreal-time RT-PCR.All SARS CoV2 and positive influenza A/B results arereported to [facility]. 08/06/2025 8:38 AM EST 08/06/2025 8:42 AM EST Generic External Data Provider LAB MICROBIOLOGY - GENERAL ORDERABLES Final Result Performing Organization Address [facility] Co de Phone Number [facility] [address] [place] [phone] * NT-proBNP (08/06/2025 8:38 AM EST) NT-proBNP 245.9 <300 pg/mL [facility] Comment:Reference Range:Age Group (years) NT-proBNP (pg/ml) InterpretationAll <300 Negative: HF unlikelyFor patients presenting to the ED with clinical suspicion ofnew onset or worsening HF, see below:18 to <50 >299.9 to <450.0 Grayzone: [id number] to 75 >299.9 to <900.0 other causes of>75 >299.9 to <1800.0 NT-proBNP lljjyysqu59 to <50 >449.9 Positive: HF [id number] >899.9>75 >1799.9Note: Elevated NT-proBNP levels should be interpreted inthe context of other clinical information. 08/06/2025 8:38 AM EST 08/06/2025 8:42 AM EST us Generic External Data Provider LAB BLOOD ORDERAB LES Final Result [facility] [address] [place] [phone] * (ABNORMAL) CBC auto differential (08/06/2025 8:38 AM EST) White Blood Count 11.3(H) 4.8 - 10.8 X10*3/uL [facility] Red Blood Count 3.70(L) 4.20 - 5.50 X10*6/uL [facility] Hemoglobin 8.5(L) 12.0 - 16.0 g/dl [facility] Hematocrit 27.8(L) 37.0 - 47.0 % [facility] Mean Corpuscular Volume 75.1(L) 80.0 - 98.0 fL [facility] Mean Corpuscular Hemoglobin 23.0(L) 27.0 - 33.0 pg [facility] Mean Corpuscular HGB Conc 30.6(L) 31.0 - 35.0 g/dl [facility] Red Cell Distribution Width 18.0(H) 11.0 - 16.0 % [facility] Platelet Count 370 160 - 400 X10*3/uL [facility] Mean Platelet Volume 8.8(L) 9.4 - 12.3 fL [facility] Neutrophils Percent Auto 74.1(H) 45 - 73 % [facility] Imm Gran Pct Auto 0.7(H) 0.0 - 0.4 % [facility] Lymphocytes Percent Auto 17.6(L) 20 - 40 % [facility] Monocytes Percent Auto 6.6 2 - 11 % [facility] Eosinophils Percent Auto 0.5 0 - 4 % [facility] Basophils Percent Auto 0.5 0 - 2 % [facility] NRBC Pct Auto 0.0 0.0 - 0.2 /100WBC [facility] Neutrophils Absolute Auto 8.3 2.0 - 8.3 x10*3/uL [facility] Imm Gran Abs Auto 0.08(H) 0.00 - 0.03 X10*3/uL [facility] Lymphocytes Absolute Auto 2.0 1.2 - 4.9 X10*3/uL [facility] Monocytes Absolute Auto 0.8 0.1 - 1.2 X10*3/uL [facility] Eosinophils Absolute Auto 0.1 0.0 - 0.4 X10*3/uL [facility] Basophils Absolute Auto 0.1 0.0 - 0.2 X10*3/uL [facility] NRBC Abs Auto 0.000 0.0 - 0.012 X10*3/uL [facility] 08/06/2025 8:38 AM EST 08/06/2025 8:42 AM EST us Generic External Data Provider LAB BLOOD ORDERAB LES Final Result [facility] [address] [place] [address] [phone] * (ABNORMAL) Comprehensive Metabolic Panel (08/06/2025 8:38 AM EST) Sodium 144 135 - 145 mmol/L [facility] Potassium 4.5 3.3 - 5.1 mmol/L [facility] Chloride 109(H) 96 - 108 mmol/L [facility] Carbon Dioxide 27 22 - 29 mmol/L [facility] Anion Gap 13 12 - 20 [facility] Urea Nitrogen (BUN) 13 9 - 16 mg/dL [facility] Creatinine, Serum 0.82 0.5 - 1.4 mg/dL [facility] Creatinine Clr Calc Pharmacy 43.0 [facility] Comment:Provided height and weight: 144.78 cm,62.6 kg.eGFR (calculated from the MDRD study equation) and eCrCl(calculated from the Cockcroft-Gault equation) are based ondifferent parameters and may not yield comparable results.If eCrCl result is absurd, please check patient'sheight/weight. Estimated Glomerular Filt Rate >60 [facility] Comment:Chronic Kidney Disea se: Estimated GFR < 60 mL/min/1.00v2Efzkoy Kidney Disease: Estimated GFR < 15 mL/min/1.73m2 Glucose 131(H) 60 - 115 mg/dL [facility] Calcium 9.0 8.4 - 10.2 mg/dL [facility] Bilirubin, Total 0.1 0.0 - 1.0 mg/dL [facility] Aspartate Amino Transferase 18 5 - 31 U/L [facility] Alanine Aminotransferase 11 0 - 31 U/L [facility] Total Protein 6.9 6.5 - 8.0 g/dL [facility] Albumin Level 3.9 3.5 - 5.0 g/dL [facility] Alkaline Phosphatase 112 39 - 117 U/L [facility] 08/06/2025 8:38 AM EST 08/06/2025 8:42 AM EST us Generic External Data Provider LAB BLOOD ORDERAB LES Final Result [facility] [address] [place] [phone] * (ABNORMAL) POCT Hgb A1c (06/06/2025 11:48 AM EDT) Hemoglobin A1C 7.1(A) 4.0 - 5.7 % QC Media Lot # [id number] Lot# Expiration Date Blood 06/06/2025 11:4 8 AM EDT Edilma Lópezkayla DO POINT OF CARE TEST ENTER/DEBBI T ORDERABLES Final Result * (ABNORMAL) POCT Glucose (06/06/2025 11:47 AM EDT) Glucose Blood, POC 222(A) 60 - 200 mg/dL QC Media Lot # [id number] Lot# Expiration Date ,697,440 Blood Capillary blood specimen / Unknown 06/06/2025 11:47 AM EDT Edilma Lópezkayla DO POINT OF CARE TEST ENTER/DEBBI T ORDERABLES Final Result * Albumin, Random Urine W/Creatinine (04/27/2024 9:42 AM EDT) Creatinine, Urine 28.57 mg/dL [facility] Microalbumin Urine 7.0 mg/L [facility] Microalbum Creatinine Ratio Ur 24.5 <30 ug/mg cr [facility] Comment:Albumin/Creatinine R atio Reference Ranges: Normal: < 30 ug/mg creatinine Microalbuminuria: 30 - 300 ug/mg creatinineClinical Albuminuria: > 300 ug/mg creatinine Urine (Urine, Random) 04/27/2024 9:42 AM EDT 04/27/2024 1:19 PM EDT Edilma Enma DO LAB URINE ORDERABLES Final R esult [facility] [address] [place] [phone] * (ABNORMAL) Hepatitis C Antibody with Reflex to HCV, RNA, Quantitative, Real- Time PCR (04/27/2024 9:35 AM EDT) Hepatitis C Antibody Reactive( A) Nonreactive [facility] Comment:Presumptive evidence of antibodies to HCV. Blood Venous blood specimen / Unknown 04/27/2024 9:35 AM EDT 04/27/2024 11:45 AM EDT Edilma Norwood DO LAB BLOOD ORDERABLES Final R esult Performing Organization Address [facility]/ZIP Co de Phone Number [facility] [address] [place] [phone] * (ABNORMAL) Lipid Panel, Standard (04/27/2024 9:35 AM EDT) Triglycerides 190(H) <150 mg/dL [facility] Comment:Desirable Triglyceri de: less than 150 mg/dLBorderline High Triglyceride 150-199 mg/dLHigh Triglyceride: 200-499 mg/dLVery High Triglyceride: greater than or equal to 5OO mg/dL Cholesterol 159 <200 mg/dL [facility] Comment:Desirable Cholestero l: less than 200 mg/dLBorderline High Cholesterol: 200-239 mg/dLHigh Cholesterol: greater than 239 mg/dL LDL Cholesterol Calculated 72 <100 mg/dL [facility] Comment:Desirable LDL: less than 100 mg/dLNear Optimal/Above Optimal LDL: 110- 129 mg/dLBorderline High LDL: 130-159 mg/dLHigh LDL: 160-189 mg/dLVery High LDL: greater than or equal to 190 mg/dL HDL Cholesterol 49 >40 mg/dL [facility] Comment:Desirable HDL: great er than 40 mg/dL Note: This HDL assay may give artificially low results in patients with liver disease. Blood Venous blood specimen / Unknown 04/27/2024 9:35 AM EDT 04/27/2024 12:03 PM EDT us Edilma Norwood DO LAB BLOOD ORDERABLES Final R esult Performing Organization Address City/[facility]/ZIP Co de Phone Number [facility] [address] [place] [phone] from Last 3 Months or Most Recently Relevant to Health Maintenance Additional Health Concerns Active Problems Noted Date Diagnosed Date Help patients manage their type 2 diabetes 08/06 Weekly blood pressure task 08/06/2025 Help patients manage their type 2 diabetes 08/06 Patient has chronic kidney disease 08/06/2025 Weekly blood pressure task 08/06/2025 Patient has chronic kidney disease 08/06/2025 Weekly blood pressure task 08/13/2025 Weekly blood pressure task 08/13/2025 Patient has chronic kidney disease 08/13/2025 Patient has chronic kidney disease 08/13/2025 Weekly blood pressure task 08/13/2025 Weekly blood pressure task 08/13/2025 Patient has chronic kidney disease 08/13/2025 Patient has chronic kidney disease 08/13/2025 Weekly blood pressure task 08/16/2025 Weekly blood pressure task 08/16/2025 Patient has chronic kidney disease 08/16/2025 Patient has chronic kidney disease 08/16/2025 Weekly blood pressure task 08/22/2025 Weekly blood pressure task 08/22/2025 Patient has chronic kidney disease 08/22/2025 Patient has chronic kidney disease 08/22/2025 Weekly blood pressure task 08/22/2025 Weekly blood pressure task 08/22/2025 Patient has chronic kidney disease 08/22/2025 Patient has chronic kidney disease 08/22/2025 Insurance [facility] USP OPTIONS (O D-SNP) [place] [id number] Care Teams Keymodule Assembly Supervisor Relationship Specialty Start Date End Date Edilma Norwood DO [address] [place] [address] PCP - General Family Medicine 12/14/11
--- OUTSIDE RECORDS SUMMARY | 2025-09-05 08:34 | XMS_ITS | Encounter Summary ---
Author Organization [facility] Address [address] [place] [address] [address] [place] [address] Care Team Providers Care Behavioral Health Clinician Name Role Phone Edilma Norwood DO Primary Care Provider + [phone] Reason for Visit * Reason Comments Med Refill Encounter Details Date Type Department Care Team (Late st Contact Info) Description 04/05/2024 Refill [facility] [address] [place] [address] Edilma Norwood DO [address] [place], [place] [phone] Other muscle spasm Social History Tobacco Use [...] Description 09/27/2025 2:00 PM EST Office Visit [facility] OPTOMETRY [address] [place], [place] [phone] HugoDemi valencia, OD [address] [place] [address] documented as of this encounter Goals Goal [...] documented as of this encounter Care Teams Behavioral Health Clinician Relationship Specialty Start Date End Date Edilma Norwood DO [address] [place], [place] [phone] PCP - General Family Medicine 12/14/11 documented as of this encounter
--- OUTSIDE RECORDS SUMMARY | 2025-09-05 08:34 | XMS_ITS | Encounter Summary ---
Author Organization [employer] Address [address] [place] [address] [address] [place] [address] Care Team Providers Care Seo Associate Name Role Phone Edilma Norwood DO Primary Care Provider + [phone] Reason for Visit * Reason Comments Med Refill Encounter Details Date Type Department Care Team (Late st Contact Info) Description 06/04/2024 Refill [facility] MED[facility]INE [address] [place] [address] Edilma Norwood DO [address] [place], [place] [phone] Social History Tobacco Use Types Packs/Day Years [...] Description 09/27/2025 2:00 PM EST Office Visit [facility] OPTOMETRY [address] [place], [place] [phone] HugoDemi valencia, OD [address] [place] [address] documented as of this encounter Goals Goal [...] documented as of this encounter Care Teams Seo Associate Relationship Specialty Start Date End Date Edilma Norwood DO [address] [place], [place] [phone] PCP - General Family Medicine 12/14/11 documented as of this encounter
--- OUTSIDE RECORDS SUMMARY | 2025-09-05 08:34 | XMS_ITS | Encounter Summary ---
Author Organization [employer] [facility] Address [address] [place] [address] [address]t [place] [address] Care Team Providers Care Reception Manager Name Role Phone Edilma Norwood DO Primary Care Provider + [phone] Reason for Visit * Reason Onset Date Comments Nurse Triage 08/11/2023 Encounter Details Date Type Department Care Team (Late st Contact Info) Description 08/11/2023 Telephone [facility]INE [address] [place] [address] Edilma Norwood DO [address] [place], [place] [phone] Nurse Triage Social History Tobacco Use Types [...] left for patient to return call to [phone]. * Telephone Encounter - Anne Dow - 08/11/2023 9:38 AM EST Symptom: Chest Pain - Adult Outcome: Schedule an urgent appointment (within 1 hour) or talk to a nurse or provider soon Reason: Caller denied all higher acuity questions The caller accepted this outcome Please contact pt at [phone] documented in this encounter Plan of Treatment Upcoming Encounters Date Type Department Care Team (Late st Contact Info) Description 09/27/2025 2:00 PM EST Office Visit [facility] OPTOMETRY [address] [place] [address] Hugo, Demi, OD [address] [place] [address] documented as of this encounter Goals Goal [...] documented as of this encounter Care Teams Reception Manager Relationship Specialty Start Date End Date Edilma Norwood DO [address] [place] [address] PCP - General Family Medicine 12/14/11 documented as of this encounter
--- OUTSIDE RECORDS SUMMARY | 2025-09-05 08:34 | XMS_ITS | Encounter Summary ---
Author Organization [employer] [facility] Address [address] [facility] [address] [place] [address] Care Team Providers Care Powerhouse Oiler Name Role Phone Enma Edilma Primary Care Provider +[phone] Jakob Liz PharmD Unavailable Unavail able Encounter Details Date Type Department Care Team (Late Contact Info) Description 09/02/2022 Orders Only [facility] [address] [place] [address] Edilma Figueora LPN Social History Tobacco Use Types Packs/Day [...] 09/27/2025 2:00 PM EST Office Visit [facility] OPTOMETRY [address] [place] [address] Hugo, Demi, OD [address] [place] [address] documented as of this encounter Visit Diagnoses Not on filedocumented in this encounter Care Teams Powerhouse Oiler Relationship Specialty Start Date End Date Edilma Norwood DO [address] [place] [address] PCP - General Family Medicine 12/14/11 Jakob Liz PharmD [address] [place] [address] Pharmacist Internal Medicine 10/05/22 02/07/23 documented as of this encounter
--- OUTSIDE RECORDS SUMMARY | 2025-09-05 08:34 | XMS_ITS | Encounter Summary ---
Author Organization [employer] Address [address] [place] [address] [address] [place] [address] Care Team Providers Care Construction Carpenters Helper Name Role Phone Edilma Norwood DO Primary Care Provider + [phone] Jakob Liz PharmD Unavailable Unavail able Reason for Visit * Reason Comments Med Refill Encounter Details Date Type Department Care Team (Late st Contact Info) Description 12/23/2022 Refill [facility] [address] [place] [address] Edilma Norwood DO [address] [place], [place] [phone] Social History Tobacco Use Types Packs/Day Years [...] Description 09/27/2025 2:00 PM EST Office Visit [facility] OPTOMETRY [address] [place] [address] Demi Arias OD [address] [place] [address] documented as of this encounter Goals Goal [...] documented as of this encounter Care Teams Construction Carpenters Helper Relationship Specialty Start Date End Date Edilma Norwood DO [address] [place] [address] PCP - General Family Medicine 12/14/11 Jakob Liz, PharmD [address] [place] [address] Pharmacist Internal Medicine 10/05/22 02/07/23 documented as of this encounter
--- OUTSIDE RECORDS SUMMARY | 2025-09-05 08:34 | XMS_ITS | Encounter Summary ---
Author Organization [employer] Address [address] [place] [address] [address] [place] [address] Care Team Providers Care Drier Transfer Car Operator Name Role Phone Edilma Norwood DO Primary Care Provider + [phone] Reason for Visit * Reason Onset Date Comments Hospital Follow-up 08/13/2025 Encounter Details Date Type Department Care Team ([facility] st Contact Info) Description 08/13/2025 Telephone [facility] MEDICINE [address] [place] [address] Edilma Norwood DO [address] [place], [place] [phone] Hospital Follow-up Social History Tobacco Use Types Packs/Day Years [...] * Telephone Encounter - Vidhya Burns - 08/13/2025 10:35 AM EST Tc from pt requesting a HDF appt. Hospital: [facility] Date of admission: 08/06 Discharge date: 08/09 Diagnosed: Pneumonia *Send message to [place] Clinical Care Coordinators documented in this encounter Plan of Treatment Upcoming Encounters Date Type Department Care Team (Late st Contact Info) Description 09/27/2025 2:00 PM EST Office Visit [facility] OPTOMETRY [address] [place] [address] Demi Arias, OD [address] [facility] [place] [address] documented as of this encounter Goals Goal Patient Goal Type Associated Problems Recent Progress Patient-Stated? Author Hemoglobin A1c < 7.5 Result Component 7.1(06/06/20 11:48 AM EDT) No Jakob Liz, PharmD Note: Age, comorbidities Help patients manage their [...] Weekly blood pressure task No Willi, Nanette Weekly blood pressure task Care Plan Weekly blood pressure task No Willi, Nanette Patient has chronic kidney disease Care Plan Patient has chronic kidney disease No Willi, Nanette Patient has chronic kidney disease Care Plan Patient has chronic kidney disease No Willi, Nanette documented as of this encounter Visit Diagnoses Not on filedocumented in this encounter Additional Health Concerns Active Problems Noted Date [...] 08/13/2025 Patient has chronic kidney disease 08/13/2025 Assessment Noted Time PHQ-9 Depression Total Score: 13 025 11:46 AM EDT documented as of this encounter Care Teams Drier Transfer Car Operator Relationship Specialty Start Date End Date Edilma Norwood DO [address] [place] [address] PCP - General Family Medicine 12/14/11 documented as of this encounter
--- OUTSIDE RECORDS SUMMARY | 2025-09-05 08:34 | XMS_ITS | Encounter Summary ---
Author Organization [employer] Address [address] [place] [address] [address] [place] [address] Care Team Providers Care Database Development Project Manager Name Role Phone Edilma Norwood DO Primary Care Provider [phone] Jakob Liz PharmD Unavailable Unavail able Reason for Visit * Reason Comments Med Refill Encounter Details Date Type Department Care Team (Late Contact Info) Description 02/02/2023 Refill [facility] & PEDS [address] [place] [address] Edilma Norwood DO [address] [place], [place] [phone] Chronic neck pain Social History Tobacco Use [...] Upcoming Encounters Date Type Department Care Team ([facility] Contact Info) Description 09/27/2025 2:00 PM EST Office Visit [facility] [address] [place] [address] Demi Arais, OD [address] [place] [address] documented as of this encounter Goals Goal [...] documented as of this encounter Care Teams Database Development Project Manager Relationship Specialty Start Date End Date Edilma Norwood DO [address] [place] [id number] PCP - General Family Medicine 12/14/11 Jakob Liz, PharmD [address] [place] [id number] Pharmacist Internal Medicine 10/05/22 02/07/23 documented as of this encounter
--- OUTSIDE RECORDS SUMMARY | 2025-09-05 08:34 | XMS_ITS | Encounter Summary ---
Author Organization [employer] Address [address] [place] [address] [address] [place] [address] Care Team Providers Care Bottler Helper Name Role Phone Edilma Norwood DO Primary Care Provider + [phone] Reason for Visit * Reason Comments Med Refill Encounter Details Date Type Department Care Team (Late Contact Info) Description 05/12/2023 Refill [facility] MEDICINE [address] [place] [address] Veena Tinsley MD [address] [place] [address] Chronic bilateral low back pain, unspecified whether [...] Description 09/27/2025 2:00 PM EST Office Visit [facility] OPTOMETRY [address] [place] [address] Demi Arias OD [address] [place] [address] documented as of this encounter Goals Goal [...] documented as of this encounter Care Teams Bottler Helper Relationship Specialty Start Date End Date Edilma Norwood DO [address] [place] [address] PCP - General Family Medicine 12/14/11 documented as of this encounter
--- OUTSIDE RECORDS SUMMARY | 2025-09-05 08:34 | XMS_ITS | Encounter Summary ---
Author Organization [employer] Address [address] [facility] 7t [place] [address] Care Team Providers Care Machined Parts Metal Sprayer Name Role Phone Edilma Norwood DO Primary Care Provider + [phone] Reason for Visit * Reason Comments Med Refill Encounter Details Date Type Department Care Team (Late st Contact Info) Description 06/27/2023 Refill [facility] MEDICINE [address] [place] [address] Edilma Norwood DO [address] [place], [place] [phone] Social History Tobacco Use Types Packs/Day Years [...] 09/27/2025 2:00 PM EST Office Visit [facility] OPTOMET[facility] [address] [place], [place] [phone] Demi Arias, OD [address] [place], [place] [phone] documented as of this encounter Goals Goal [...] documented as of this encounter Care Teams Machined Parts Metal Sprayer Relationship Specialty Start Date End Date Edilma Norwood DO [address] [place] [address] PCP - General Family Medicine 12/14/11 documented as of this encounter
--- OUTSIDE RECORDS SUMMARY | 2025-09-05 08:34 | XMS_ITS | Encounter Summary ---
Author Organization [employer] Address [address] [place] [address] [address] [place] [address] Care Team Providers Care Office Automation Clerk Name Role Phone Edilma Norwood DO Primary Care Provider + [phone] Jakob Liz PharmD Unavailable Unavail able Encounter Details Date Type Department Care Team (Late Contact Info) Description 08/14/2022 Orders Only [facility] [address] [place] [address] Lucero Perry LPN Social History Tobacco Use [...] Description 09/27/2025 2:00 PM EST Office Visit [facility] [address] [place] [address] Hugo, Demi, OD [address] [place] [address] documented as of this encounter Visit Diagnoses Not on filedocumented in this encounter Care Teams Office Automation Clerk Relationship Specialty Start Date End Date Edilma Norwood DO 230 [facility] [place] [address] PCP - General Family Medicine 12/14/11 Jakob Liz PharmD [address] [place] [address] Pharmacist Internal Medicine 10/05/22 02/07/23 documented as of this encounter
--- OUTSIDE RECORDS SUMMARY | 2025-09-05 08:34 | XMS_ITS | Encounter Summary ---
Author Organization [employer] Address [address] [place] [address] [address] [place] [address] Care Team Providers Care Wharfinger Chief Name Role Phone Edilma Norwood DO Primary Care Provider + [phone] Reason for Visit * Reason Comments Med Refill Encounter Details Date Type Department Care Team (Late st Contact Info) Description 01/24/2024 Refill [facility] MEDICINE [address] [place] [address] Edilma Norwood DO [address] [place], [place] [phone] Social History Tobacco Use Types Packs/Day Years [...] 09/27/2025 2:00 PM EST Office Visit [facility] OPT[facility] [address] [place], [place] [phone] HugoDemi valencia, OD [address] [place] [address] documented as of this encounter Goals Goal [...] documented as of this encounter Care Teams Wharfinger Chief Relationship Specialty Start Date End Date Edilma Norwood DO [address] [place], [place] [phone] PCP - General Family Medicine 12/14/11 documented as of this encounter
--- OUTSIDE RECORDS SUMMARY | 2025-09-05 08:34 | XMS_ITS | Encounter Summary ---
Author Organization [employer] Address [address] [facility] 7t [place] [address] Care Team Providers Care Copy Manager Name Role Phone Enma Edilma Primary Care Provider + [phone] Jakob Liz PharmD Unavailable Unavail able Encounter Details Date Type Department Care Team (Late Contact Info) Description 09/22/2022 Orders Only [facility] MED & PEDS [address] [place] [address] Edilma Figueroa LPN Social History Tobacco Use [...] Description 09/27/2025 2:00 PM EST Office Visit [facility] OPTOMETRY [address] [place] [address] Hugo, Demi, OD [address] [place] [address] documented as of this encounter Visit Diagnoses Not on filedocumented in this encounter Care Teams Copy Manager Relationship Specialty Start Date End Date Edilma Norwood DO [address] [place] [address] PCP - General Family Medicine 12/14/11 Jakob Lzi PharmD [address] [place] [address] Pharmacist Internal Medicine 10/05/22 02/07/23 documented as of this encounter
[2025-09-05 11:43] LABS: Baso%MD 0.7 %; Eos%MD 1.2 %; Hematocrit 35.0 % (37.0-47.0); Hemoglobin 10.7 g/dl (12.0-16.0); IG%MD 0.4 %; Lymph%MD 35.2 %; Mean Corpuscular HGB Conc 30.6 g/dl (31.0-35.0); Mean Corpuscular Hemoglobin 24.8 pg (27.0-33.0); Mean Corpuscular Volume 81.0 fL (80.0-98.0); Mono%MD 7.4 %; NRBC Abs Auto 0.000 X10*3/uL (0.0-0.012); NRBC Pct Auto 0.0 /100WBC (0.0-0.2); Neut%MD 55.1 %; Platelet Count 275 X10*3/uL (160-400); Red Blood Count 4.32 X10*6/uL (4.20-5.50); Reticulocytes Absolute 0.093 X10*6/uL (0.026-0.095); White Blood Count 7.3 X10*3/uL (4.8-10.8)
[2025-09-05 12:12] LABS: Alanine Aminotransferase 16 U/L (0-31); Albumin Level 4.4 g/dL (3.5-5.0); Alkaline Phosphatase 132 U/L (39-117); Anion Gap 12 (12-20); Aspartate Amino Transferase 19 U/L (5-31); Blood Urea Nitrogen 18 mg/dL (9-16); Calcium 9.7 mg/dL (8.4-10.2); Carbon Dioxide 27 mmol/L (22-29); Chloride 108 mmol/L (96-108); Cholesterol 164 mg/dL (<200); Estimated Glomerular Filt Rate > 60; HDL Cholesterol 51 mg/dL (>40); Potassium 4.9 mmol/L (3.3-5.1); Sodium 142 mmol/L (135-145); Total Protein 7.1 g/dL (6.5-8.0); Triglycerides 158 mg/dL (<150)
[2025-09-05 12:14] LABS: Ferritin 106 ng/mL (10-250); Ferritin 99 ng/mL (10-250); Thyroid Stimulating Hormone 0.77 uIU/mL (0.32-4.0)
[2025-09-05 12:15] LABS: Alanine Aminotransferase 17 U/L (0-31); Albumin Level 4.4 g/dL (3.5-5.0); Alkaline Phosphatase 130 U/L (39-117); Anion Gap 15 (12-20); Aspartate Amino Transferase 20 U/L (5-31); Blood Urea Nitrogen 18 mg/dL (9-16); Calcium 9.6 mg/dL (8.4-10.2); Carbon Dioxide 25 mmol/L (22-29); Chloride 108 mmol/L (96-108); Estimated Glomerular Filt Rate > 60; Iron 65 mcg/dL (30-160); Percent Iron Saturation 21 % (15-50); Potassium 4.7 mmol/L (3.3-5.1); Sodium 143 mmol/L (135-145); Total Iron Binding Capacity 306 mcg/dL (228-428); Total Protein 7.1 g/dL (6.5-8.0); Unsaturated Iron Binding 241 ug/dL
[2025-09-05 12:16] LABS: Free T4 (Free Thyroxine) 1.02 ng/dL (0.71-1.85)
[2025-09-05 12:32] LABS: Microalbum/Creatinine Ratio Ur 202.5 ug/mg cr (<30)
[2025-09-05 12:41] LABS: HBS Num1 11.13 mIU/mL (0-7.99); HBsAGNum1 0.25 S/CO (0.00-0.99); HIV Num 1 0.05 S/CO (0.00-0.99); Hepatitis B Surface Antigen Negative (Negative); ~HepC Num1 7.49 S/CO (0.00-0.79); ~Hepatitis C Antibody Reactive (Nonreactive)
[2025-09-05 13:17] LABS: Folate 8.2 ng/mL (> or = 4.0); Folate 8.3 ng/mL (> or = 4.0); Vitamin B12 698 pg/mL (200-900); Vitamin B12 722 pg/mL (200-900)
[2025-09-05 13:31] LABS: Band Neutrophils Percent 0 % (3-5); Eosinophils Absolute Manual 0.1 X10*3/uL (0.0-0.4); Eosinophils Percent Manual 1 % (0-4); Lymphocytes Absolute Manual 3.2 X10*3/uL (1.2-4.9); Lymphocytes Percent Manual 44 % (20-40); Monocytes Absolute Manual 0.4 X10*3/uL (0.1-1.2); Monocytes Percent Manual 5 % (2-11); Neutrophils Absolute Manual 3.7 X10*3/uL (2.0-8.3); Neutrophils Percent Manual 50 % (45-73)
[2025-09-05 13:48] LABS: Ovalocytes 1+ (5-14) /OIF; RBC Morphology NOTED
[2025-09-05 14:57] LABS: HBS Num2 10.89 mIU/mL (0-7.99); HBS Num3 11.39 mIU/mL (0-7.99)
[2025-09-05 14:58] LABS: ~Hepatitis B Surface Antibody GRAYZONE (Nonreactive)
== END 2025-09-05 08:31 | disposition home or self-care (01) ==
LOC: HO.HHCL 08:30
PROVIDERS: PCP Family Medicine; Referring Provider Nurse Practitioner Family; Visit Provider Internal Medicine
DX: Z00.00 Encounter for general adult medical examination without abnormal findings (principal); E53.8 Deficiency of other specified B group vitamins; D64.9 Anemia, unspecified; F33.9 Major depressive disorder, recurrent, unspecified; E11.42 Type 2 diabetes mellitus with diabetic polyneuropathy; E78.49 Other hyperlipidemia; J45.30 Mild persistent asthma, uncomplicated; K59.09 Other constipation; M54.50 Low back pain, unspecified; G89.29 Other chronic pain; M54.2 Cervicalgia; G47.30 Sleep apnea, unspecified; M79.604 Pain in right leg; M79.605 Pain in left leg; I10 Essential (primary) hypertension; R13.10 Dysphagia, unspecified; F17.200 Nicotine dependence, unspecified, uncomplicated; Z71.3 Dietary counseling and surveillance; Z71.82 Exercise counseling; Z12.31 Encounter for screening mammogram for malignant neoplasm of breast; Z79.4 Long term (current) use of insulin; Z11.4 Encounter for screening for human immunodeficiency virus [HIV]; Z13.21 Encounter for screening for nutritional disorder
CPT/HCPCS: 36415; 80048; 80053; 80061; 80076; 82043; 82248; 82306; 82570; 82607; 82728; 82746; 83036; 83540; 83615; 84439; 84443; 85007; 85027; 85045; 86592; 86706; 86803; 87340; 87389; 87522